=== PATIENT | male | born 1945 | race Caucasian/White ===

== ENCOUNTER 2017-05-19 16:20 | Observation (INO) | payer MEDICARE ==
[2017-05-19] MEDS ORDERED: SODIUM CHLORIDE 0.9% 1,000 ML IV ONE (16:58)
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
[2017-05-19 17:15] LABS: Basophils % (A) 0 %; CH 30.7; CHCM 34.3; Eosinophils # (A) 0.1 k/uL (0-0.7); Eosinophils % (A) 1 %; HCT 46.5 % (39.0-53.0); HDW 2.48; Luc # (Auto) 0.15; Luc % (Auto) 2; Lymphocytes # (A) 1.7 k/uL (1.0-4.8); Lymphocytes % (A) 23 %; MCH 30.9 pg (25.0-35.0); MCHC 34.4 g/dL (31.0-37.0); Monocytes # (A) 0.4 k/uL (0-1.0); Monocytes % (A) 5 %; Neutrophils # (A) 5.1 k/uL (1.3-7.7); Neutrophils % (A) 69 %; RBC 5.17 m/uL (4.30-5.90); RDW 13.5 % (11.5-15.5); WBC 7.3 k/uL (3.8-10.6); WBC (Perox) 6.97
[2017-05-19 17:24] LABS: Calcium 9.5 mg/dL (8.4-10.2); Magnesium 2.4 mg/dL (1.6-2.3); Partial Thromboplastin Time 26.1 sec (22.0-30.0); Total Bilirubin 0.5 mg/dL (0.2-1.3); Total Protein 6.9 g/dL (6.3-8.2)
[2017-05-19 17:35] LABS: Creatine Kinase 112 U/L (55-170)
--- NOTE | 2017-05-19 17:38 | XR ---
EXAMINATION TYPE: XR chest 2V DATE OF EXAM: 05/19/2017 COMPARISON: 08/08/2016 HISTORY: Fall and chest pain TECHNIQUE: Frontal and lateral views of the chest are obtained. FINDINGS: There is mild linear density at the left lung base. Heart size is normal. There is no sign of pleural effusion or pneumothorax. There are chest leads. IMPRESSION: There is mild atelectasis at the left lung base similar to old exam. Normal heart.
[2017-05-19 17:48] LABS: Creatine Kinase MB 1.5 ng/mL (0.0-2.4); Troponin I <0.012 ng/mL (0.000-0.034)
[2017-05-19 18:27] LABS: Appearance,Urine Clear (Clear); Bilirubin,Urine Negative (Negative); Glucose,Urine (UA) Negative (Negative); Ketones,Urine Negative (Negative); Leukocyte Esterase,Urine Negative (Negative); Nitrite,Urine Negative (Negative); Protein,Urine Negative (Negative); Specific Gravity,Urine 1.014 (1.001-1.035); UA Billing (MACRO vs. MICRO) CHEM; Urobilinogen,Urine <2.0 mg/dL (<2.0)
[2017-05-19] MEDS ORDERED: NITROGLYCERIN SL TABS 0.4 MG TAB SUBLINGUAL PRN ×2 (19:34→22:45)
[2017-05-19 21:24] VITALS: BMI 28.7
[2017-05-19 22:44] LABS: Creatine Kinase 95 U/L (55-170)
[2017-05-19 22:55] LABS: Creatine Kinase MB 1.2 ng/mL (0.0-2.4); Troponin I <0.012 ng/mL (0.000-0.034)
[2017-05-19] MEDS: ARIPiprazole 5 MG TAB PO SCH (23:59)
[2017-05-19] MEDS: GABAPENTIN 300 MG CAP PO SCH (23:59)
[2017-05-19] MEDS: PRAVASTATIN SODIUM 20 MG TAB PO SCH (23:59)
[2017-05-19] MEDS: traZODone HCL 100 MG TAB PO SCH (23:59)
[2017-05-20 05:14] LABS: Cholesterol 135 mg/dL (<200); HDL Cholesterol 39 mg/dL (40-60)
[2017-05-20 05:17] LABS: Creatine Kinase 99 U/L (55-170)
[2017-05-20 05:30] LABS: Creatine Kinase MB 1.2 ng/mL (0.0-2.4); Troponin I <0.012 ng/mL (0.000-0.034)
[2017-05-20] MEDS: GABAPENTIN 300 MG CAP PO SCH ×2 (08:10→20:36)
[2017-05-20] MEDS: ASPIRIN 81 MG PO SCH (08:10)
[2017-05-20] MEDS: CILOSTAZOL 100 MG TAB PO SCH ×2 (08:10→20:36)
[2017-05-20] MEDS: ALLOPURINOL 300 MG TAB PO SCH (08:10)
[2017-05-20] MEDS: ISOSORBIDE MONONITRATE ER 30 MG TAB.ER.24H PO SCH (08:11)
[2017-05-20] MEDS ORDERED: ASPIRIN 325 MG TAB PO SCH (09:00)
[2017-05-20] MEDS ORDERED: LOSARTAN 50 MG TAB PO SCH (09:00)
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
[2017-05-20] MEDS: SODIUM CHLORIDE 0.9% 1,000 ML IV SCH (13:21)
--- NOTE | 2017-05-20 14:13 | P.PN ---
Progress Note - Text This is an addendum to the dictated cardiology consultation. The patient has a known history of sinus bradycardia and chronotropic incompetence who presents with symptoms of dizziness and presyncope. He has been followed and that regard by Dr. Cowan in the possibility of permanent pacemaker was discussed with him in the past. Yesterday while at home after getting indoor he felt quite dizzy and fell to the ground but did not have a full syncopal episode. After admission he was noted to be in sinus bradycardia with no pauses. Patient is not on any negative chronotropic drugs. I will discuss his case with Dr. Cowan for the possible need to undergo permanent pacemaker implantation. Thank you for this consult we will follow with you.
--- NOTE | 2017-05-20 15:13 | CONS ---
DATE OF CONSULTATION: This is a 71-year-old male presented to the emergency department on 05/19 because of dizziness, lightheadedness and passing out. The patient apparently was squatting down and stood up and apparently became lightheaded, dizzy and had apparent either loss of consciousness or near loss of consciousness. It has apparently been going on for about a year and a half. He apparently at one point was going to have a pacemaker placed by Dr. Cowan he has not seen Dr. Cowan for over a year. He states that he at that time refused to have the pacemaker placed. Anyway, the patient is in the hospital for evaluation of that. States he is feeling reasonably well, now has been up out of bed, walking around, gone to the bathroom. No further episodes. No chest pain, chest discomfort. No difficulty breathing, coughing and wheezing, shortness of breath, or any other complaints like that. His home medications include allopurinol, Pletal, Cozaar, sublingual nitroglycerin, pravastatin, gabapentin, Abilify, low dose aspirin, Imdur and trazodone. He also at one point was on Klonopin. ALLERGIES: VICODIN AND SULFA ANTIBIOTICS. Medical history includes a history of CAD, angina pectoris, hyperlipidemia, hypertension, previous myocardial infarction, osteoarthritis, pneumonia. He has also had cardiac catheterization, psoriasis, BPH, peripheral vascular disease, fractured hand, gout, sciatica, and hyperlipidemia. Other surgical history includes heart catheterization, tonsillectomy, bilateral eyelid surgery, lipoma removal, nerve blocks in low back, carpal tunnel release, skin graft and some other minor procedures. Social history is positive for previous tobacco use. No alcohol use to report. No illicit drug use. Medical history is positive dementia, myocardial infarction. REVIEW OF SYSTEMS: CONSTITUTIONAL: Negative. NEUROLOGICAL: Dizzy, lightheadedness, syncope/near syncope. HEENT: Negative. CARDIOVASCULAR: Negative. PULMONARY: Negative. GI/: Negative. RHEUMATOLOGICAL/IMMUNOLOGIC: Negative. DERMATOLOGIC: Negative. ENDOCRINOLOGIC: Negative. Current vital signs include temperature 97.5, heart rate is right around 50 beats per minute, respiratory rate 18, blood pressure 140/78, mean 98, room air saturation 96%. Appears in no acute distress, looks well. HEENT examination is grossly unremarkable. Mucous membranes are moist. NECK: Supple. Full range of motion. No adenopathy. Cardiovascular examination reveals regular rhythm and rate. His heart rate is about 50. It is regular. No murmur. S1, S2 normal. Lungs reveal relatively clear breath sounds. Abdomen is soft. EXTREMITIES: Intact. No cyanosis, clubbing, or edema. Skin without rash. Labs are reviewed. CBC is completely normal. PT, INR, PTT normal. Electrolytes, mostly normal. BUN and creatinine were 18 and 1.55. The rest of the labs are completely normal. UA and cardiac enzymes all normal. EKG shows sinus rhythm with rate about 60 beats per minute. Medications are reviewed. ASSESSMENT: 1. Symptomatic bradycardia with dizziness, lightheadedness and near syncope/syncope. 2. History of coronary artery disease. 3. History of angina pectoris. 4. History of hyperlipidemia. 5. Hypertension. 6. Previous myocardial infarction. 7. Benign prostatic hypertrophy. 8. Previous attempt at the pacemaker insertion by Dr. Cowan which the patient refused. PLAN: It appears that the patient probably had symptomatic bradycardia and may need pacemaker insertion. Parts Counterman is going to see the patient. No additional recommendations are made. The patient is a primary Dr. Schroeder patient. Will continue to follow. Not much to add from our perspective. No additional recommendations are made.
--- NOTE | 2017-05-20 18:45 | HP ---
DATE OF ADMISSION: 05/19/2017 The patient is a 71-year-old came in with multiple episodes of ( ) palpitations in the past, was evaluated by Dr. Cowan appraisal coordinator, and he recommended a pacemaker placement. Patient's dizziness, near-syncopal episodes were much worse yesterday. The patient started having diarrhea. Although patient's symptoms of near syncopal episode preceded with diarrhea. Patient had 3 episodes of diarrhea yesterday and 3 episodes of diarrhea so far today morning. ( ) testing is being obtained at this point of time. Patient denies recent antibiotic use. The patient has worsening renal function. The patient's creatinine around 1.1 to 1.5. ( ) is being discontinued and the patient has ( ) orthostatic vitals. The patient was started on IV fluids and the patient in the hospital was found to have ( ) bradycardia. Apparently the patient has similar episodes with sinus bradycardia in the past. As patient was severely symptomatic, it was recommended that he will need a pacemaker. ROS: All other systems were reviewed and were negative. PAST MEDICAL HISTORY: Coronary artery disease, hyperlipidemia, hypertension, myocardial infarction in the past, osteoarthritis, prostate disorder and cardiac catheterization and tonsillectomy in the past. SOCIAL HISTORY: Former smoker. Denied any alcohol abuse or any drug abuse. FAMILY HISTORY: Father with dementia and myocardial infarction. Mother had dementia. Still alive. Home medications include: 1. ( ). 2. ( ). 3. Nitroglycerin. 4. Pravastatin. 5. Gabapentin. 6. ( ). 7. Aspirin. 8. Isosorbide. 9. Trazodone. ALLERGIES: HYDROCODONE, SULFA DRUGS. PHYSICAL EXAMINATION: VITAL SIGNS: Temperature 97.5, pulse of 48, sinus bradycardia. ( ) respiratory rate ( ) and blood pressure is 124/75 with positive orthostatic vitals. GENERAL: The patient is alert and oriented x3, not in any acute distress. Well developed, well nourished. HEENT: Pupils are round and equally reacting to light. EOMI. No scleral icterus. No conjunctival pallor. Normocephalic, atraumatic. No pharyngeal erythema. No thyromegaly. CARDIOVASCULAR: S1 and S2 present. No murmurs, rubs, or gallops. PULMONARY: Chest is clear to auscultation, no wheezing or crackles. ABDOMEN: Soft, nontender, nondistended, normoactive bowel sounds. No palpable organomegaly. MUSCULOSKELETAL: No joint swelling or deformity. EXTREMITIES: No cyanosis, clubbing, or pedal edema. NEUROLOGICAL: Gross neurological examination did not reveal any focal deficits. SKIN: No rashes. LABORATORY DATA: Reviewed. CT scan described above. Chest x-ray did not show any pneumonic process or pulmonary edema. ASSESSMENT AND PLAN: 1. Near syncopal episode with two possibilities, sinus bradycardia may be contributing to diarrhea. The patient is also dehydrated. The patient will be started on IV fluids and the patient will be treated for acute renal failure. Further management regarding ( ) per cardiology. 2. Acute renal failure secondary to prerenal azotemia from diarrhea. The patient was started on IV fluids as mentioned earlier. 3. ( ) from hypertension, hypertensive nephrosclerosis, because of acute renal failure, Losartan will be held. 4. Coronary artery disease. 5. Benign prostatic hypertrophy. 6. Hyperlipidemia. For above-mentioned chronic medical problems, we will go ahead and continue home medications. Patient also has a history of peripheral vascular disease and prior history of smoking. YUSEFD
[2017-05-20] MEDS: PRAVASTATIN SODIUM 20 MG TAB PO SCH (20:36)
[2017-05-20] MEDS: traZODone HCL 100 MG TAB PO SCH (20:36)
[2017-05-20] MEDS: ARIPiprazole 5 MG TAB PO SCH (20:36)
[2017-05-21 05:25] VITALS: PULSE 43; RESP 18
[2017-05-21] MEDS: SODIUM CHLORIDE 0.9% 1,000 ML IV SCH ×2 (06:13→08:05)
[2017-05-21 07:31] LABS: Anion Gap 8 mmol/L; Blood Urea Nitrogen 14 mg/dL (9-20); Carbon Dioxide 24 mmol/L (22-30); Chloride 111 mmol/L (98-107); Glucose 96 mg/dL (74-99); Non-African American GFR(MDRD) >60 (>60 ml/min/1.73 sqM); Potassium 4.2 mmol/L (3.5-5.1); Sodium 143 mmol/L (137-145)
[2017-05-21] MEDS: CILOSTAZOL 100 MG TAB PO SCH (08:02)
[2017-05-21] MEDS: GABAPENTIN 300 MG CAP PO SCH (08:02)
[2017-05-21] MEDS: ISOSORBIDE MONONITRATE ER 30 MG TAB.ER.24H PO SCH (08:02)
[2017-05-21] MEDS: ASPIRIN 81 MG PO SCH (08:02)
[2017-05-21] MEDS: ALLOPURINOL 300 MG TAB PO SCH (08:02)
[2017-05-21 08:11] VITALS: TEMP 97.6
--- NOTE | 2017-05-21 10:15 | P.PN ---
Subjective Progress note dated 05/21/2017 This is a 71-year-old male who sees my partner as her primary physician. He came to the hospital with complaints of lightheadedness dizziness and passing out with either syncope or near syncope. He apparently was advised in the past have a pacemaker placement but apparently he refused at that time. Apparently now he agrees that he should have a pacemaker placed. He seen Dr. Kim in the past for that. The patient has a history of CAD angina pectoris hyperlipidemia hypertension previous myocardial infarction DJD pneumonia psoriasis BPH peripheral vascular occlusive disease and gout. The patient's hoping to have the pacemaker placed today but is not sure. He's been able to walk around without any further episodes. He's gone to the bathroom. He is walking the hallway. No no additional episodes of being lightheaded dizzy or feeling like he was going to pass out. Objective - Vital Signs Vital signs: Vital Signs Temp 97.6 F 05/21/17 08:06 Pulse 43 L 05/21/17 08:06 Resp 18 05/21/17 08:06 BP 134/67 05/21/17 08:06 Pulse Ox 95 05/21/17 08:06 Intake & Output 05/20/17 05/21/17 05/21/17 18:59 06:59 18:59 Intake Total 480 200 180 Output Total 1000 1600 Balance -520 -1400 180 Weight 90.4 kg Intake: IV 200 Sodium Chloride 0.9% 1, 200 000 ml @ 100 mls/hr IV . Q10H TRE Rx#:[id number] Oral 480 180 Output: Urine 1000 1600 Other: # Voids 1 - Exam No acute distress, oriented 3. HEENT examination is grossly unremarkable. Mucous membranes are moist. No oral lesions. Neck supple. Full range of motion. No adenopathy thyromegaly or neck vein distention. Cardiovascular examination reveals regular rhythm rate. Heart rate about 60. S1-S2 normal. No distinct murmur noted. No S3 or S4. Lungs reveal relatively clear breath sounds. No wheezes rhonchi or crackles. Abdomen soft bowel sounds are heard. No masses or tenderness. Extremities are intact. No cyanosis clubbing or edema. Skin without rash. Neurologic examination is nonfocal. - Labs CBC & Chem 7: 05/19/17 16:46 05/21/17 06:20 Labs: Abnormal Lab Results - Last 24 Hours (Table) 05/21/17 Range/Units 06:20 Chloride 111 H (98-107) mmol/L Assessment and Plan (1) Bradycardia Status: Acute (2) Pre-syncope Status: Acute (3) Dizziness Status: Acute (4) Hypertension Status: Acute (5) Peripheral vascular disease Status: Acute Plan: Plan dated 05/21/2017 The patient will likely have a pacemaker placed today or tomorrow. Epigastric or diarrhea. The patient is feeling better. Has had no further episodes of lightheadedness dizziness syncope or presyncope. No chest pain or chest discomfort. No neurologic complaints speak of. No shortness of breath or difficulty breathing. We'll continue to follow. I'll let my partner know the status of this patient. Time with Patient: Less than 30
--- NOTE | 2017-05-21 12:17 | P.PN ---
Subjective Principal diagnosis: Dizziness and near syncope This is a 71-year-old gentleman with history of documented hypertension, hyperlipidemia, prior history of smoking, who presents to the hospital following a near syncopal episode. According to the patient he states that he does get dizzy spells whenever he bends forward to pick things up, upon standing he becomes dizzy. Yesterday according to the patient, he was sitting outside in the sun, stood up to walk into the house and became extremely dizzy, to the point where he felt he may pass out. He walked into the house and states that he went down to the ground. He denies passing out completely. Patient states that he has been seen by Dr. Cowan in the past and told that he may need a pacemaker, patient wasn't very happy with that and hence has not followed up with him since then. EKG on arrival here showed sinus bradycardia with occasional PVC. Patient was seen in consultation by Dr. Nunez yesterday. Dr. Nunez did have a discussion with Dr. Cowan regarding implantation of permanent pacemaker, this will be performed on June 09. Today the heart rate remains in the high 40s to low 50s, patient is asymptomatic. He will be discharged home today, pacemaker will be scheduled for June 09. Objective - Vital Signs Vital signs: Vital Signs Temp 97.6 F 05/21/17 08:06 Pulse 43 L 05/21/17 08:06 Resp 18 05/21/17 08:06 BP 134/67 05/21/17 08:06 Pulse Ox 95 05/21/17 08:06 Intake & Output 05/20/17 05/21/17 05/21/17 18:59 06:59 18:59 Intake Total 480 200 180 Output Total 1000 1600 Balance -520 -1400 180 Weight 90.4 kg Intake: IV 200 Sodium Chloride 0.9% 1, 200 000 ml @ 100 mls/hr IV . Q10H TRE Rx#:[id number] Oral 480 180 Output: Urine 1000 1600 Other: # Voids 1 - Exam PHYSICAL EXAMINATION: HEENT: Head is atraumatic, normocephalic. Pupils equal, round. Neck is supple. There is no elevated jugular venous pressure. HEART EXAMINATION: Heart S1, S2 normal. No murmur or gallop heard. CHEST EXAMINATION: Lungs are clear to auscultation and precussion. No chest wall tenderness is noted on palpation or with deep breathing. ABDOMEN: Soft, nontender. Bowel sounds are heard. No organomegaly noted. EXTREMITIES: 2+ peripheral pulses with no evidence of peripheral edema and no calf tenderness noted. NEUROLOGIC patient is awake, alert and oriented -3. . - Labs CBC & Chem 7: 05/19/17 16:46 05/21/17 06:20 Labs: Abnormal Lab Results - Last 24 Hours (Table) 05/21/17 Range/Units 06:20 Chloride 111 H (98-107) mmol/L Assessment and Plan (1) Bradycardia Status: Acute (2) Hyperlipemia Status: Acute (3) PVD (peripheral vascular disease) Status: Acute (4) Pre-syncope Status: Acute (5) Dizziness Status: Acute Plan: Cardiology's perspective, patient may be able to be discharged home today. He will be scheduled for implantation of a permanent pacemaker on June 09, the risks and the benefits were explained to the patient in detail. DNP note has been reviewed, I agree with a documented findings and plan of care. Patient was seen and examined.
[2017-05-21 12:24] VITALS: BP 126/62
--- NOTE | 2017-05-22 16:38 | DS ---
DATE OF ADMISSION: 05/19/2017 DATE OF DISCHARGE: 05/21/2017 Patient came in with palpation, near syncopal episode symptoms, all of which improved. I believe it is secondary to recent losartan, which was discontinued, with improvement in creatinine from 1.5 to 1.1, which is his baseline. Patient will be discharged without losartan. Patient in the past was evaluated for symptomatic sinus bradycardia and patient will undergo further evaluation at Dr. Cowan's clinic and pacemaker placement evaluation will be done at that time. The patient will be discharged. The patient was seen and examined on the day of discharge. Vitals are stable. PHYSICAL EXAMINATION: GENERAL: The patient is alert and oriented x3, not in any acute distress. Well developed, well nourished. HEENT: Pupils are round and equally reacting to light. EOMI. No scleral icterus. No conjunctival pallor. Normocephalic, atraumatic. No pharyngeal erythema. No thyromegaly. CARDIOVASCULAR: S1 and S2 present. No murmurs, rubs, or gallops. PULMONARY: Chest is clear to auscultation, no wheezing or crackles. ABDOMEN: Soft, nontender, nondistended, normoactive bowel sounds. No palpable organomegaly. MUSCULOSKELETAL: No joint swelling or deformity. EXTREMITIES: No cyanosis, clubbing, or pedal edema. NEUROLOGICAL: Gross neurological examination did not reveal any focal deficits. SKIN: No rashes. Patient has episodes of sinus bradycardia. At that time, patient was not ( ) at this time. Patient will be discharged today in stable medical condition to home. Activity as tolerated. Cardiac diet. Please refer to my depart summary for details of discharge medications. Follow with Dr. Schroeder around the May 28 at 3:15, follow with Dr. Cowan as scheduled. Activity as tolerated. I spent greater than 35 minutes in total discharge process.
== END 2017-05-21 14:32 | disposition home or self-care (01) ==
LOC: EC 16:20 → 6SEL 19:35
PROVIDERS: ADMIT Hospitalist; ATTEND Hospitalist
DX: R55 Syncope and collapse (principal); N17.9 Acute kidney failure, unspecified; R29.6 Repeated falls; I25.2 Old myocardial infarction; I25.10 Atherosclerotic heart disease of native coronary artery without angina pectoris; E78.5 Hyperlipidemia, unspecified; M19.90 Unspecified osteoarthritis, unspecified site; N40.0 Benign prostatic hyperplasia without lower urinary tract symptoms; M10.9 Gout, unspecified; I73.9 Peripheral vascular disease, unspecified; R01.1 Cardiac murmur, unspecified; L40.9 Psoriasis, unspecified; G89.29 Other chronic pain; F41.9 Anxiety disorder, unspecified; E86.0 Dehydration; I12.9 Hypertensive chronic kidney disease with stage 1 through stage 4 chronic kidney disease, or unspecified chronic kidney disease; N18.9 Chronic kidney disease, unspecified; Z79.899 Other long term (current) drug therapy; Z79.82 Long term (current) use of aspirin; Z88.5 Allergy status to narcotic agent; Z88.2 Allergy status to sulfonamides; Z87.891 Personal history of nicotine dependence; Z82.49 Family history of ischemic heart disease and other diseases of the circulatory system
CPT/HCPCS: 93005 ×2; 96360; 96361; 99282; 99285; 36415; 80061; 80053; 80048; 82550 ×2; 82553 ×2; 83735; 84484 ×2; 85025; 85610; 85730; 81003; 71020; G0378 ×3

== ENCOUNTER 2017-05-21 23:17 | Emergency (ER) | payer MEDICARE ==
[2017-05-21 23:27] VITALS: TEMP 97.7
[2017-05-21] MEDS ORDERED: LORazepam 1 MG TAB PO STA (23:36)
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
[2017-05-21 23:43] VITALS: RESP 16
[2017-05-22 00:28] VITALS: BP 120/71; PULSE 58
== END 2017-05-22 00:26 | disposition home or self-care (01) ==
LOC: EC 23:17
DX: F41.9 Anxiety disorder, unspecified (principal); E78.5 Hyperlipidemia, unspecified; I10 Essential (primary) hypertension; I25.10 Atherosclerotic heart disease of native coronary artery without angina pectoris; M10.9 Gout, unspecified; M19.90 Unspecified osteoarthritis, unspecified site; I25.2 Old myocardial infarction; Z87.891 Personal history of nicotine dependence; Z79.82 Long term (current) use of aspirin; Z79.899 Other long term (current) drug therapy; Z88.2 Allergy status to sulfonamides; Z88.5 Allergy status to narcotic agent; Z86.79 Personal history of other diseases of the circulatory system
CPT/HCPCS: 99282

== ENCOUNTER 2017-06-09 15:04 | Day surgery (SDC) | payer MEDICARE ==
[2017-06-04 16:49] VITALS: BMI 25.0
[~2017-06-09 15:04] MED LIST: SODIUM CHLORIDE 0.9% 1,000 ML IV SCH; ceFAZolin 1,000 MG in SODIUM CHLORIDE 0.9% IRRIGATIO 250 ML IRRIGATION ONE; ceFAZolin 2 GM in SODIUM CHLORIDE 0.9% 100 ML IVPB ONE
[2017-06-09] MEDS ORDERED: IV FLUID CONTINUATION 1,000 ML IV ONE (15:50)
[2017-06-09] MEDS ORDERED: IOHEXOL 350 MG/ML 50ML BOTTLE INJ ONE (16:06)
[2017-06-09] MEDS ORDERED: MIDAZOLAM 2 MG/2 ML VIAL ONE (16:19)
[2017-06-09] MEDS ORDERED: fentaNYL (PF) 50 MCG/ML 2 ML AMP ONE (16:19)
[2017-06-09] MEDS ORDERED: fentaNYL (PF) 50 MCG/ML 2 ML AMP IV ONE (16:25)
[2017-06-09] MEDS: MIDAZOLAM 2 MG/2 ML VIAL IV ONE ×2 (16:25→16:38)
[2017-06-09] MEDS ORDERED: LIDOCAINE 1% INJ 10MG/ML (20 ML MDV) SQ ONE ×2 (16:36→16:41)
[2017-06-09] MEDS ORDERED: LIDOCAINE 2% INJ 20 MG/ML SQ ONE (16:41)
--- NOTE | 2017-06-09 17:39 | P.PCN ---
Preoperative Diagnosis: Patient underwent EP procedure under conscious sedation/moderate sedation, monitoring of the level of consciousness and physiologic parameters including but not limited to vital signs and oxygenation. Patient tolerated the procedure well without any acute complications. Start time: 1625 Stop time: 172 Postoperative Diagnosis: Procedure(s) Performed: Implants: Condition: stable Indications for Procedure: Operative Findings: Description of Procedure:
[2017-06-09] MEDS ORDERED: ACETAMINOPHEN IV (For NPO) 1,000 MG in EMPTY BAG 1 BAG IVPB ONE (17:42)
[2017-06-09] MEDS ORDERED: HYDROcodone/APAP 5-325MG 1 EACH TAB PO PRN (17:42)
[2017-06-09] MEDS ORDERED: ACETAMINOPHEN TAB 325 MG TAB PO PRN (17:42)
[2017-06-09] MEDS ORDERED: NITROGLYCERIN SL TABS 0.4 MG TAB SUBLINGUAL PRN (19:20)
[2017-06-09] MEDS: CILOSTAZOL 100 MG TAB PO SCH (20:30)
[2017-06-09] MEDS: GABAPENTIN 300 MG CAP PO SCH (20:30)
[2017-06-09] MEDS ORDERED: traZODone HCL 100 MG TAB PO SCH (21:00)
[2017-06-09] MEDS ORDERED: PRAVASTATIN SODIUM 20 MG TAB PO SCH (21:00)
[2017-06-09] MEDS ORDERED: LORazepam 1 MG TAB PO SCH (21:00)
[2017-06-09] MEDS ORDERED: ARIPiprazole 5 MG TAB PO SCH (21:00)
[2017-06-09] MEDS: ceFAZolin 2 GM in SODIUM CHLORIDE 0.9% 100 ML IVPB SCH (22:18)
[2017-06-10] MEDS: ceFAZolin 2 GM in SODIUM CHLORIDE 0.9% 100 ML IVPB SCH ×3 (03:09→15:37)
--- NOTE | 2017-06-10 06:53 | XR ---
EXAMINATION TYPE: XR chest 2V DATE OF EXAM: 06/10/2017 COMPARISON: Chest x-ray May 19, 2017 HISTORY: Post pacemaker insertion. TECHNIQUE: Frontal and lateral views of the chest are obtained. FINDINGS: There is new 2-lead pacemaker with leads terminating in right atrium and right ventricle. T here is persistent left basilar linear opacity. There is no new focal air space opacity, pleural eff usion, or pneumothorax seen. The cardiac silhouette size is within normal limits. The osseous stru ctures are intact. IMPRESSION: New dual-lead pacemaker with tips in right atrium and right ventricle. No evidence of co mplication related to procedure. Stable left basilar atelectasis and/or scarring.
--- NOTE | 2017-06-10 08:12 | PN ---
Mr. Rosario is a 71-year-old male patient with symptomatic sick sinus syndrome with significant chronotropic incompetence associated with diagnosis of fatigue. He also complains of recurrent dizziness, was recently admitted to the hospital, last he was also admitted for the same problem. He underwent dual chamber pacemaker implantation successfully. Chest x-ray today is within normal limits. The leads are in stable position. No pneumothorax noted. Vitals are stable. He is afebrile, 98 degrees Fahrenheit. Pulse rate is in the 50s. Blood pressure 129/76 mmHg. Head and neck examination is normal. Heart sounds, S1, S2 are normal. No murmurs, no gallops or rub. Lungs are clear to auscultation. Extremities are warm, no edema. IMPRESSION: 1. Symptomatic sick sinus syndrome, status post pulmonary pacemaker implantation. 2. Hypertension. 3. On Losartan. 4. Dyslipidemia on Pravachol. Suggest discharge home after IV antibiotics and pacemaker interrogation. Will see him again in the office in 5 days in the [facility]. I will see him again in about 4 months. It is quite possible he may not need Ability anymore once his chronotropic incompetence now has been addressed. RENA
--- NOTE | 2017-06-10 08:22 | MISC ---
DATE OF SERVICE: 06/10/2017 RE: Armond Rosario Dear Dr. Schroeder; I had the pleasure of seeing Mr. Armond Rosario in electrophysiology followup. As you known, Mr. Rosario had been advised permanent pacemaker implantation last year for significant chronotropic incompetence but he had refused. He came into the hospital once again complaining of dizziness and light-headedness and he was found to be quite bradycardiac. Yesterday, he underwent a dual chamber pacemaker implantation successfully without any acute complications. Hopefully , with responsiveness of the pacemaker, he will not need Abilify anymore. He will continue all his other cardiac medications as before. Thank you for entrusting me with the care of your patient. Warm regards. Sincerely. MD RENA Lyle
[2017-06-10] MEDS ORDERED: ALLOPURINOL 300 MG TAB PO SCH (09:00)
[2017-06-10] MEDS ORDERED: LOSARTAN 50 MG TAB PO SCH (09:00)
[2017-06-10] MEDS ORDERED: ASPIRIN 81 MG CHEW PO SCH (09:00)
[2017-06-10] MEDS ORDERED: LORATADINE 10 MG TAB PO SCH (09:00)
[2017-06-10] MEDS ORDERED: ISOSORBIDE MONONITRATE ER 30 MG TAB.ER.24H PO SCH (09:00)
[2017-06-10] MEDS: GABAPENTIN 300 MG CAP PO SCH (09:22)
[2017-06-10] MEDS: CILOSTAZOL 100 MG TAB PO SCH (09:22)
--- NOTE | 2017-06-10 14:49 | PCN ---
A 71-year-old male patient who has symptomatic sick sinus syndrome with dizziness, lightheadedness, tiredness, fatigue, and ( ) incompetence who came again to the hospital complaining of dizziness and was found to be bradycardiac. He is known to have significant ( ) incompetence in the past and I have advised him permanent pacemaker last year. He was seen by Dr. Nunez when Dr. Nunez was rounding in [facility] and was once again advised permanent pacing because of his episodes of bradycardia in the absence of any reversible cause. Patient was brought tot the EP lab in fasting state. Written informed consent was obtained prior to the procedure. The left shoulder area was prepped and draped as per protocol. 1% lidocaine was used for local anesthesia. A 4 cm incision was made parallel to the the deltopectoral groove about 1.5 cm medial to it. The incision was carried down to the level fo the pectoralis muscle. Subfascial pocket was made. Hemostasis was assured. The left axillary vein was accessed at two separate points under fluoroscopy and via appropriately sized introducer sheaths. Two leads were positioned in the right heart. The atrial lead was a [employer] lead Ingevity MR I7735, serial # [id number]. P-waves were 5.6 mV, pacing threshold 0.5 v at 0.4 ms, pacing impedance of 534 ohms. 10 v test is negative. The RV lead was 59 cm In[employer]ev[employer] MRI passive lead model #7732, serial #[id number]. The R-waves were 7.1 mV, pacing threshold 0.6 v at 0.4 ms, pacing impedance of 602 ohms. 10 v test was negative. The leads were secured to the underlying pectoralis fascia using two nonabsorbable sutures. Pocket was irrigated with antibiotic solution. The leads were connected to the generator ([employer] Accolade MRI model #L331, serial #[id number]. The leads and the generator were then placed in the subfascial pocket and the wound was closed in 3 layers and dressed per protocol. The device was then programmed to DDDR 50 to 130 bpm with ( ) turned on for rate responsiveness with VIP mode on. The patient tolerated the procedure well without any acute complications. Attention: Dorothea at [facility]
[2017-06-10 16:13] VITALS: BP 113/64; PULSE 62; RESP 16; TEMP 97.7
--- NOTE | 2017-06-10 16:16 | CONS ---
This is a 71-year-old gentleman status post pacemaker insertion. He likely will be discharged home today. The patient apparently had symptomatic sick sinus syndrome. He also has a history of hypertension and hyperlipidemia. He sees one of my partners as a primary and that is why we are consulted. From the pulmonary standpoint seems to be doing relatively well. Denies any complaints. No shortness of breath. No chest pain. No chest discomfort. No cough. No wheezing. No phlegm production. No hemoptysis. His vital signs have been stable. ALLERGIES INCLUDE VICODIN AND SULFA. Home medications included aspirin, losartan, trazodone, pravastatin, nitroglycerine sublingual, loratadine, Ativan, Imdur, gabapentin, Pletal, Zyloprim and Abilify. SOCIAL HISTORY: Essentially unremarkable. OCCUPATIONAL HISTORY: Noncontributory. FAMILY HISTORY: Noncontributory. Medical history includes primary hypertension and hyperlipidemia. In addition he has a history of sick sinus syndrome which has been symptomatic. Surgical history is mostly remote. REVIEW OF SYSTEMS: CONSTITUTIONAL: Negative. NEUROLOGIC: Negative. HEENT: Negative. CARDIOVASCULAR: See above. PULMONARY: Negative. GI/: Negative. RHEUMATOLOGIC/IMMUNOLOGIC: Negative. ENDOCRINOLOGIC/DERMATOLOGIC: Negative. Current vital signs are reviewed. Temperature 97.6, heart rate 62, respiratory rate 16, blood pressure 129/76, room air saturation is 95%. Appears in no acute distress. HEENT: Grossly unremarkable. Mucous membranes are moist. No oral lesions. NECK: Supple. Full range of motion. No adenopathy or thyromegaly. Neck veins are flat. CARDIOVASCULAR: Reveals regular rhythm rate. S1, S2 normal. Heart rate is about 70. LUNGS: Reveal clear breath sounds. No wheezes, rhonchi or crackles. ABDOMEN: Soft, bowel sounds are heard. No masses or tenderness. EXTREMITIES: Intact. No cyanosis, clubbing or edema. SKIN: Without rash. NEUROLOGIC: Brief, but nonfocal. No lab data to report. Chest x-ray done today shows dual lead pacemaker with tips in the right atrium and right ventricle. No immediate complication noted. Pacemaker was actually placed yesterday. ASSESSMENT: 1. Status post pacemaker insertion for symptomatic sick sinus syndrome. 2. History of hypertension. 3. Hyperlipidemia. PLAN: Later today the patient will likely be discharged. No additional recommendations are made. Will continue to follow. Prognosis is guarded. Will follow up with his primary doctor. RENA
== END 2017-06-10 16:50 | disposition home or self-care (01) ==
LOC: CATHEP 15:04 → 3OBS 17:29 → CATHEP 06-10 16:50
PROVIDERS: ATTEND Internal Medicine Clinical Cardiac Electrophysiology
DX: I49.5 Sick sinus syndrome (principal); R00.1 Bradycardia, unspecified; E78.5 Hyperlipidemia, unspecified; I10 Essential (primary) hypertension; Z79.02 Long term (current) use of antithrombotics/antiplatelets; Z79.82 Long term (current) use of aspirin; Z79.899 Other long term (current) drug therapy; Z88.5 Allergy status to narcotic agent; Z88.2 Allergy status to sulfonamides
CPT/HCPCS: 33208; 71020; C1785; C1898; J2250; J0690 ×3; J2001; J3010; J0131; Q9967

== ENCOUNTER 2017-08-30 11:50 | Emergency (ER) | payer MEDICARE ==
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
--- NOTE | 2017-08-30 12:57 | CT ---
EXAMINATION TYPE: CT brain wo con DATE OF EXAM: 08/30/2017 COMPARISON: Previous study dated 9 HISTORY: dizziness CT DLP: 1031.4 mGycm Automated exposure control for dose reduction was used. FINDINGS: Central structures are midline. There is no evidence of hydrocephalus. No acute focal lesion, mass ef fect or midline shift. I do not see evidence of intracranial blood. Visualized portions of the paranasal sinuses and mastoids are clear. No depressed skull fracture is s een. Middle and inner ear structures appear normal. IMPRESSION: NO ACUTE INTRACRANIAL ABNORMALITY.
[2017-08-30 12:58] LABS: Basophils % (A) 0 %; CH 30.3; CHCM 33.5; Eosinophils # (A) 0.1 k/uL (0-0.7); Eosinophils % (A) 2 %; HCT 43.1 % (39.0-53.0); HGB 14.6 gm/dL (13.0-17.5); Luc % (Auto) 2; Lymphocytes # (A) 1.3 k/uL (1.0-4.8); Lymphocytes % (A) 25 %; MCH 30.6 pg (25.0-35.0); MCHC 33.7 g/dL (31.0-37.0); MCV 90.8 fL (80.0-100.0); Mean Platelet Volume 7.1; Monocytes # (A) 0.4 k/uL (0-1.0); Monocytes % (A) 8 %; Neutrophils # (A) 3.3 k/uL (1.3-7.7); Neutrophils % (A) 63 %; RBC 4.75 m/uL (4.30-5.90); RDW 13.7 % (11.5-15.5); WBC 5.2 k/uL (3.8-10.6); WBC (Perox) 5.26
[2017-08-30] MEDS: SODIUM CHLORIDE 0.9% 500 ML IV STA (12:58)
--- NOTE | 2017-08-30 12:58 | XR ---
EXAMINATION TYPE: XR chest 2V DATE OF EXAM: 08/30/2017 HISTORY: Weakness. REFERENCE: Previous study dated 06/10/2017. FINDINGS: There is a bipolar pacemaker place on the left. There is chronic atelectasis at the left lung base. The right lung is clear. Pleural spaces are clear . The heart is not enlarged. IMPRESSION: CHRONIC LEFT BASILAR ATELECTASIS.
[2017-08-30 13:05] VITALS: RESP 18
[2017-08-30 13:09] LABS: Prothrombin Time 10.6 sec (9.0-12.0)
[2017-08-30 13:10] LABS: ALT 30 U/L (21-72); AST 19 U/L (17-59); Alkaline Phosphatase 60 U/L (38-126); Anion Gap 11 mmol/L; Blood Urea Nitrogen 18 mg/dL (9-20); Calcium 8.8 mg/dL (8.4-10.2); Carbon Dioxide 23 mmol/L (22-30); Chloride 108 mmol/L (98-107); Glucose 132 mg/dL (74-99); Magnesium 2.1 mg/dL (1.6-2.3); Non-African American GFR(MDRD) 54 (>60 ml/min/1.73 sqM); Potassium 4.2 mmol/L (3.5-5.1); Sodium 142 mmol/L (137-145); Total Bilirubin 0.2 mg/dL (0.2-1.3)
[2017-08-30 13:13] LABS: Appearance,Urine Cloudy (Clear); Bilirubin,Urine 1+ (Negative); Glucose,Urine (UA) 1+ (Negative); Granular Casts,Urine 86 /lpf (0); Ketones,Urine Trace (Negative); Leukocyte Esterase,Urine Small (Negative); Mucus,Urine Moderate /hpf; Nitrite,Urine Negative (Negative); PH, Urine 6.5 (5.0-8.0); Particle Count 12388; Protein,Urine 1+ (Negative); RBC,Urine 2 /hpf (0-5); Specific Gravity,Urine 1.026 (1.001-1.035); Squamous Epithelial Cell,Urine <1 /hpf (0-4); UA Billing (MACRO vs. MICRO) MICRO; WBC,Urine 10 /hpf (0-5)
[2017-08-30 13:19] LABS: Creatine Kinase 168 U/L (55-170)
[2017-08-30 13:32] LABS: Creatine Kinase MB 1.6 ng/mL (0.0-2.4); Troponin I <0.012 ng/mL (0.000-0.034)
[2017-08-30 14:57] VITALS: BP 106/65; PULSE 63; TEMP 97.8
== END 2017-08-30 15:04 | disposition home or self-care (01) ==
LOC: EC 11:50
DX: I95.1 Orthostatic hypotension (principal); I10 Essential (primary) hypertension; F41.9 Anxiety disorder, unspecified; I25.10 Atherosclerotic heart disease of native coronary artery without angina pectoris; E78.5 Hyperlipidemia, unspecified; I25.2 Old myocardial infarction; I73.9 Peripheral vascular disease, unspecified; Z95.0 Presence of cardiac pacemaker; Z88.2 Allergy status to sulfonamides; Z88.5 Allergy status to narcotic agent; Z79.82 Long term (current) use of aspirin; Z79.899 Other long term (current) drug therapy; Z87.891 Personal history of nicotine dependence
CPT/HCPCS: 36415; 70450; 71020; 80053; 81001; 82550; 82553; 83735; 84484; 85025; 85610; 85730; 93005; 96360; 96361; 99284

== ENCOUNTER 2018-06-08 08:24 | Observation (INO) | payer MEDICARE ==
[2018-06-08] MEDS ORDERED: SODIUM CHLORIDE 0.9% 1,000 ML IV STA ×2 (09:06)
[2018-06-08 09:33] LABS: Basophils % (A) 0 %; Eosinophils # (A) 0.1 k/uL (0-0.7); Eosinophils % (A) 2 %; HCT 42.4 % (39.0-53.0); HGB 14.7 gm/dL (13.0-17.5); Lymphocytes # (A) 1.4 k/uL (1.0-4.8); Lymphocytes % (A) 18 %; MCH 30.6 pg (25.0-35.0); MCHC 34.6 g/dL (31.0-37.0); MCV 88.5 fL (80.0-100.0); Mean Platelet Volume 7.2; Monocytes # (A) 0.5 k/uL (0-1.0); Monocytes % (A) 7 %; Neutrophils # (A) 5.3 k/uL (1.3-7.7); Neutrophils % (A) 72 %; Platelet Count 159 k/uL (150-450); RDW 13.8 % (11.5-15.5); WBC 7.3 k/uL (3.8-10.6)
[2018-06-08 09:41] LABS: Albumin 3.4 g/dL (3.5-5.0); Calcium 9.2 mg/dL (8.4-10.2); Partial Thromboplastin Time 23.2 sec (22.0-30.0); Prothrombin Time 9.9 sec (9.0-12.0); Total Bilirubin 0.4 mg/dL (0.2-1.3); Total Protein 5.4 g/dL (6.3-8.2)
[2018-06-08 10:04] LABS: Creatine Kinase 35 U/L (55-170)
[2018-06-08 10:17] LABS: Creatine Kinase MB 0.6 ng/mL (0.0-2.4); Troponin I <0.012 ng/mL (0.000-0.034)
--- NOTE | 2018-06-08 10:29 | XR ---
EXAMINATION TYPE: XR chest 2V DATE OF EXAM: 06/08/2018 COMPARISON: 08/30/2017 HISTORY: Dizziness and weakness for 3 days. TECHNIQUE: Frontal and lateral views of the chest are obtained. FINDINGS: New linear patchy right basilar airspace disease is favored to represent atelectasis. Chron ic scarring is seen at the left lung base unchanged from the prior of 2017. Dual lead left-sided card iac device and mild cardiac enlargement are similar to the prior. No new pneumothorax or sizable pleu ral effusion. Mild multilevel degenerative changes of the thoracic spine. IMPRESSION: New right basilar opacity is favored to represent atelectasis, however early developing pneumonia is possible in the appropriate clinical setting. Chronic left basilar atelectasis is unchanged from the prior.
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
[2018-06-08] MEDS ORDERED: NALOXONE 0.4 MG/ML 1 ML VIAL IV PRN (11:10)
[2018-06-08] MEDS ORDERED: ONDANSETRON 4 MG/2 ML VIAL IVP PRN (11:10)
[2018-06-08] MEDS ORDERED: ACETAMINOPHEN TAB 325 MG TAB PO PRN (11:10)
[2018-06-08] MEDS ORDERED: NITROGLYCERIN SL TABS 0.4 MG TAB SUBLINGUAL PRN (11:14)
[2018-06-08 12:43] LABS: Appearance,Urine Clear (Clear); Bilirubin,Urine Negative (Negative); Blood,Urine Negative (Negative); Color,Urine Yellow; Glucose,Urine (UA) Negative (Negative); Ketones,Urine Negative (Negative); Leukocyte Esterase,Urine Negative (Negative); Nitrite,Urine Negative (Negative); PH, Urine 6.5 (5.0-8.0); Protein,Urine Negative (Negative); Specific Gravity,Urine 1.015 (1.001-1.035); Urobilinogen,Urine <2.0 mg/dL (<2.0)
[2018-06-08] MEDS: GABAPENTIN 300 MG CAP PO SCH (20:28)
[2018-06-08] MEDS: CILOSTAZOL 100 MG TAB PO SCH (20:28)
[2018-06-08] MEDS: traZODone HCL 100 MG TAB PO SCH (21:22)
[2018-06-09] MEDS: FLUDROCORTISONE 0.1 MG TAB PO SCH ×3 (00:29→21:42)
[2018-06-09] MEDS: HYDROCORTISONE SUCCINATE 100 MG/2 ML VIAL IV SCH ×4 (00:29→15:45)
--- NOTE | 2018-06-09 00:57 | HP ---
HISTORY AND PHYSICAL DATE OF ADMISSION: June 08, 2018 DATE OF SERVICE: June 08, 2018. PRESENT COMPLAINT: Dizzy. HISTORY OF PRESENTING COMPLAINT: Pleasant 72-year-old patient of Dr. Schroeder. Chronic stable medical conditions include hypertension, hyperlipidemia, osteoarthritis, BPH, coronary artery disease with nonobstructive disease 65% and also has a permanent pacemaker. For 3 days, patient has been getting dizzy, lightheaded, noticed that more so when he is active even could happen at rest, sometimes wobbly when he walks. Denies any change in speech or change in vision or swallowing. The patient has been seeing Dr. Sandoval and was given a course of steroids that he was tapering off. Just tapered off looks like a couple days ago. The patient has not passed out. The patient was found to be significantly orthostatic with a blood pressure systolic in the one teens with standing up 150s and sitting up. Also patient's heart rate noticed to be down to the 50s. Looks like the pacemaker set at 40. Patient admitted for the same. The patient does feel tired and run down otherwise a bit weak. REVIEW OF SYSTEMS: CONSTITUTIONAL: Tired. HEENT: Decreased hearing. RESPIRATORY none. CARDIOVASCULAR none. GASTROINTESTINAL none. GENITOURINARY: BPH symptoms. DERMATOLOGICAL, HEMATOLOGIC, LYMPHATICS: None. PSYCHIATRY none. NEUROLOGICAL: Nil focal. PAST MEDICAL HISTORY: Coronary artery disease, hyperlipidemia, hypertension, osteoarthritis, BPH. Cardiac cath did show 65% last cardiac cath, bilateral sciatica, hyperuricemia, bilateral parotitis. PAST SURGICAL HISTORY: Cardiac catheterization showing 55% obstructive disease, pacemaker, tonsillectomy, bilateral blepharoplasty, right shoulder lipoma removal, bilateral carpal tunnel release, left leg permanent pacemaker in May of 2017. PSYCH HISTORY: Anxiety. SOCIAL HISTORY: . Was an alcoholic, none since 1974. The patient also started smoking age of 8, got up to 3 packs a day, stopped in 1979. FAMILY HISTORY: Dementia, myocardial infarction. HOME MEDICATIONS: 1. Trazodone 200 mg q.h.s. 2. Pravachol 10 mg daily. 3. Nitrostat 0.4 sublingual q.5 p.r.n. 4. Cozaar 50 mg q.h.s. 5. Imdur ER 30 mg a day. 6. Neurontin 300 mg b.i.d. 7. Pletal 100 mg b.i.d. 8. Aspirin 81 mg daily. 9. Allopurinol 300 mg a day. 10.Tylenol 500 mg p.o. daily. ALLERGIES: HYDROCODONE AND SULFUR. PHYSICAL EXAMINATION: On examination, vital signs on presentation, temperature 97.8. Pulse 56, respiration 18, blood pressure 158/77 sitting up, and standing up was 109/60, pulse ox 95% on room air. GENERAL APPEARANCE: Average build, sitting up, tired appearing. EYES: Pupils are equal. Conjunctivae normal. HEENT: External appearance of nose and ears. Oral cavity normal. NECK: JVD not raised. Mass not palpable. RESPIRATORY: Effort normal. LUNGS: Slightly decreased breath sounds. CARDIOVASCULAR: 1st and 2nd sounds normal. No edema. ABDOMEN: Soft, nontender. Liver and spleen not palpable. LYMPHATICS: No lymph nodes palpable in the neck and axillae. PSYCHIATRY: Alert and oriented x3. Mood and affect normal. NEUROLOGICAL: Pupils equal. Cranial nerves grossly intact. Power and sensation grossly intact. INVESTIGATIONS: White count 7.3, hemoglobin 14.7, potassium 4, BUN 23, creatinine 1.06. UA negative. Chest x-ray, right basilar opacity, possibly atelectasis. EKG normal sinus rhythm. Heart rate 56. ASSESSMENT: 1. This is a patient presented with episodes of dizziness, more so when he is getting about. The patient is found to be severely orthostatic. Given past history of alcoholism, this well could be from autonomic dysfunction, but this is a new finding. Bradycardia could be contributing, but the patient has a pacemaker set at 40. It may be noted that the patient just finished a course of steroids for his acute low back pain and that could be an addisonian component to the low blood pressure. Hence will cover with the same. 2. Essential hypertension. 3. Hyperlipidemia. 4. Primary osteoarthritis and low lumbar degenerative joint disease. 5. Benign prostatic hypertrophy. 6. Nonobstructive coronary artery disease ejection fraction 65 percent/coronary artery disease. 7. Permanent pacemaker. PLAN: At this point, we will start the patient on Florinef 0.1 mg b.i.d. and Claudio stockings. The patient did get some IV fluids. We will also put the patient on IV hydrocortisone 25 mg q.8h. Check cortisol in the morning. Cardiology is consulted. We will also give a heating pad for his back. Home medications will be resumed. If symptoms remain the same or not significant improvement, may need to consider doing a tilt-table test. The patient is on monitored telemetry, cardiac monitored bed. Care was discussed in detail with the patient. Copy to Dr. Schroeder. TUSHAR / ISAC: [id number] /
[2018-06-09] MEDS ORDERED: LOSARTAN 50 MG TAB PO STA (02:23)
[2018-06-09 05:00] LABS: Basophils % (A) 0 %; Eosinophils # (A) 0.2 k/uL (0-0.7); Eosinophils % (A) 2 %; HCT 46.5 % (39.0-53.0); HGB 15.4 gm/dL (13.0-17.5); Lymphocytes # (A) 1.1 k/uL (1.0-4.8); Lymphocytes % (A) 13 %; MCH 29.6 pg (25.0-35.0); MCHC 33.1 g/dL (31.0-37.0); MCV 89.5 fL (80.0-100.0); Mean Platelet Volume 6.8; Monocytes # (A) 0.5 k/uL (0-1.0); Monocytes % (A) 5 %; Neutrophils # (A) 7.1 k/uL (1.3-7.7); Neutrophils % (A) 79 %; Platelet Count 154 k/uL (150-450); RDW 13.7 % (11.5-15.5); WBC 8.9 k/uL (3.8-10.6)
[2018-06-09 05:14] LABS: Albumin 3.4 g/dL (3.5-5.0); Calcium 9.2 mg/dL (8.4-10.2); Magnesium 2.4 mg/dL (1.6-2.3); Total Bilirubin 0.5 mg/dL (0.2-1.3); Total Protein 5.5 g/dL (6.3-8.2)
--- NOTE | 2018-06-09 06:44 | XR ---
EXAMINATION TYPE: XR chest 1V DATE OF EXAM: 06/09/2018 CLINICAL HISTORY: Difficulty breathing progress study. Rule out pneumonia. TECHNIQUE: Single AP portable upright view of the chest is obtained. COMPARISON: Chest x-ray from one day earlier and older studies. FINDINGS: There is persistent but improving bibasilar opacity felt to reflect resolving infiltrate a nd/or atelectasis. No new focal airspace opacity, pleural effusion, or pneumothorax is seen bilateral ly. Cardiac silhouette size remains enlarged with dual lead pacemaker. Visualized osseous structures are intact. IMPRESSION: Improving bibasilar atelectasis and/or infiltrate. No new infiltrate is present.
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
[2018-06-09] MEDS: ACETAMINOPHEN TAB 500 MG TAB PO SCH (10:10)
[2018-06-09] MEDS: ALLOPURINOL 300 MG TAB PO SCH (10:12)
[2018-06-09] MEDS: ASPIRIN 81 MG PO SCH (10:12)
[2018-06-09] MEDS: CILOSTAZOL 100 MG TAB PO SCH ×2 (10:13→21:42)
[2018-06-09] MEDS: GABAPENTIN 300 MG CAP PO SCH ×2 (10:16→21:42)
[2018-06-09] MEDS: PRAVASTATIN SODIUM 20 MG TAB PO SCH (10:19)
[2018-06-09] MEDS: LOSARTAN 50 MG TAB PO SCH ×2 (10:19→21:42)
[2018-06-09] MEDS: ISOSORBIDE MONONITRATE ER 30 MG TAB.ER.24H PO SCH (10:21)
[2018-06-09] MEDS ORDERED: LOSARTAN 50 MG TAB PO SCH (21:00)
[2018-06-09] MEDS: traZODone HCL 100 MG TAB PO SCH (21:42)
[2018-06-09 22:49] VITALS: RESP 18
[2018-06-10] MEDS ORDERED: HYDROCORTISONE SUCCINATE 100 MG/2 ML VIAL ONE
[2018-06-10] MEDS: HYDROCORTISONE SUCCINATE 100 MG/2 ML VIAL IV SCH ×2 (05:20→10:28)
[2018-06-10] MEDS: ASPIRIN 81 MG PO SCH (10:29)
[2018-06-10] MEDS: FLUDROCORTISONE 0.1 MG TAB PO SCH (10:29)
[2018-06-10] MEDS: CILOSTAZOL 100 MG TAB PO SCH (10:29)
[2018-06-10] MEDS: ALLOPURINOL 300 MG TAB PO SCH (10:29)
[2018-06-10] MEDS: GABAPENTIN 300 MG CAP PO SCH (10:30)
[2018-06-10] MEDS: LOSARTAN 50 MG TAB PO SCH (10:30)
[2018-06-10] MEDS: ISOSORBIDE MONONITRATE ER 30 MG TAB.ER.24H PO SCH (10:30)
[2018-06-10] MEDS: PRAVASTATIN SODIUM 20 MG TAB PO SCH (10:31)
[2018-06-10] MEDS: ACETAMINOPHEN TAB 500 MG TAB PO SCH (10:43)
--- NOTE | 2018-06-10 13:04 | PN ---
PROGRESS NOTE DATE OF SERVICE: 06/09/2018 PRESENTING COMPLAINT: Dizzy. INTERVAL HISTORY: This patient is seen by me yesterday in the ICU. Presented with dizzy. It was felt some aspect of dizziness was from his bradycardia and Cardiology assess the permanent pacemaker. Patient also significantly orthostatic for which patient is put on Florinef. I did remind the nurse to put the patient's SKYLA stalking on the previous evening. Patient does feel a bit better, losartan is also increased. REVIEW OF SYSTEMS: Done for constitutional, cardiovascular, GI, pulmonary; relevant findings as above. CURRENT MEDICATIONS: Included aspirin, Pletal, Florinef, IV Cortef. PHYSICAL EXAMINATION: Temperature 98.5, pulse 54, respirations 17, blood pressure 108/68, pulse ox 92%. GENERAL APPEARANCE: Sitting up, more comfortable. EYES: Pupils equal, conjunctivae are normal. HEENT: External appearance of nose and ears normal. Oral cavity normal. NECK: JVD not raised. Mass not palpable. Respiratory effort normal. LUNGS: Decreased breath sounds cardiovascular 1st exam no edema. ABDOMEN: Soft, nontender. Liver and spleen not palpable. PSYCHIATRY: Alert and oriented x3. Mood and affect was normal. INVESTIGATIONS: White count 8.9, hemoglobin 15.4 potassium 5. ASSESSMENT: 1. Episode of dizziness with some contribution from bradycardia. Patient's pacemaker is being adjusted. 2. Severe orthostatic hypotension, could be from autonomic dysfunction. Patient is started on Florinef. Nurse reminded to put the SKYLA stockings on. 3. Recent course of steroids for back pain for which patient was put on hydrocortisone. 4. Essential hypertension. 5. Hyperlipidemia. 6. Primary osteoarthritis of lumbar degenerative joint disease of the spine. 7. Benign prostatic hypertrophy. 8. Nonobstructive coronary artery disease, ejection fraction 65% from cardiac catheterization. 9. Permanent pacemaker. PLAN: Continue current medication and treatment plan. The patient can be moved out of the ICU. We will see how the patient's symptoms continue with orthostatic management of blood pressure. MMODL / IJN: [id number] /
[2018-06-10 14:06] VITALS: TEMP 98
[2018-06-10 14:07] VITALS: PULSE 67
[2018-06-10 16:00] VITALS: BP 144/79
--- NOTE | 2018-06-11 07:27 | DS ---
DISCHARGE SUMMARY DATE OF ADMISSION: 06/08/2018 DATE OF DISCHARGE: 06/10/2018 FINAL DIAGNOSES: 1. Severe dizziness from bradycardia, permanent pacemaker was adjusted. 2. Severe orthostatic hypotension probably could be from autonomic dysfunction, responded to Florinef. 3. Mild hypoadrenalism from recent steroids, responded well to IV hydrocortisone. 4. Essential hypertension. 5. Hyperlipidemia. 6. Primary osteoarthritis of lumbar degenerative joint disease of the spine. 7. Benign prostatic hypertrophy. 8. Nonobstructive coronary artery disease with 65% obstruction from prior cardiac catheterization. HOSPITAL COURSE: This patient with dizziness, lightheaded. Found to have heart rate down to the 40s. Pacemaker has been set for the 40s previously, it was adjusted to be set at 60. Also patient found to be significantly orthostatic. I did order Florinef and SKYLA stockings, which patient responded well. Also the patient was given some hydrocortisone because patient recently finished a course of steroids for his back. Doing much better at this time. Symptoms are greatly improved. CONSULTATION: Dr. Curry from Cardiology. ON EXAM: Lungs are clear. CARDIOVASCULAR: First and second sounds normal. DISCHARGE MEDICATIONS: 1. Allopurinol 300 mg p.o. daily. 2. Pletal 100 mg p.o. b.i.d. 3. Nitrostat 0.4 sublingual q.5 p.r.n. 4. Pravachol 10 mg p.o. daily. 5. Neurontin 300 mg b.i.d. 6. Aspirin 81 mg a day. 7. Imdur ER 30 mg a day. 8. Trazodone 200 mg at bedtime. 9. Florinef 0.1 mg p.o. b.i.d. 10.Tylenol 500 mg daily. 11.Cozaar 50 mg b.i.d. 12.Prednisone taper. Patient to wear SKYLA stockings. Follow up with Dr. Schroeder on 06/23/2018. Follow up with Dr. Cowan in 1 week. MMODL / IJN: [id number] /
== END 2018-06-10 18:06 | disposition home or self-care (01) ==
LOC: EC 08:24 → 6ICU 11:11 → UNDOADMOB 11:11 → 6SEL 11:11 → 6ICU 14:31 → 6SEL 06-09 17:57
PROVIDERS: ADMIT Hospitalist; ATTEND Hospitalist
DX: R00.1 Bradycardia, unspecified (principal); I95.1 Orthostatic hypotension; Z95.0 Presence of cardiac pacemaker; I10 Essential (primary) hypertension; M47.816 Spondylosis without myelopathy or radiculopathy, lumbar region; I25.119 Atherosclerotic heart disease of native coronary artery with unspecified angina pectoris; E27.49 Other adrenocortical insufficiency; T38.0X5A Adverse effect of glucocorticoids and synthetic analogues, initial encounter; N40.0 Benign prostatic hyperplasia without lower urinary tract symptoms; M19.91 Primary osteoarthritis, unspecified site; E78.5 Hyperlipidemia, unspecified; K11.20 Sialoadenitis, unspecified; G89.29 Other chronic pain; M54.42 Lumbago with sciatica, left side; M54.41 Lumbago with sciatica, right side; I73.9 Peripheral vascular disease, unspecified; F10.21 Alcohol dependence, in remission; M10.9 Gout, unspecified; F41.9 Anxiety disorder, unspecified; F17.200 Nicotine dependence, unspecified, uncomplicated; Z79.82 Long term (current) use of aspirin; Z79.899 Other long term (current) drug therapy; Z88.2 Allergy status to sulfonamides; Z87.01 Personal history of pneumonia (recurrent); Z88.5 Allergy status to narcotic agent; Z82.49 Family history of ischemic heart disease and other diseases of the circulatory system; Z81.8 Family history of other mental and behavioral disorders
CPT/HCPCS: 96361 ×9; 99285 ×2; 96376 ×2; 96374; 36415; 93005; 80053 ×2; 82533; 82550; 82553; 83605; 83735; 84484; 85025 ×2; 85610; 85730; 81003; 87040; 71045; 71046; G0378 ×4; J1720 ×2; 96375

== ENCOUNTER → 2019-01-06 | Outpatient (CLI) | payer MEDICARE ==
[2019-01-06 11:23] LABS: Basophils % (A) 1 %; Eosinophils # (A) 0.1 k/uL (0-0.7); Eosinophils % (A) 1 %; HCT 46.3 % (39.0-53.0); Lymphocytes # (A) 1.5 k/uL (1.0-4.8); Lymphocytes % (A) 27 %; MCH 29.6 pg (25.0-35.0); MCHC 32.3 g/dL (31.0-37.0); MCV 91.6 fL (80.0-100.0); Mean Platelet Volume 6.7; Monocytes # (A) 0.4 k/uL (0-1.0); Monocytes % (A) 7 %; Neutrophils # (A) 3.4 k/uL (1.3-7.7); Neutrophils % (A) 62 %; Platelet Count 206 k/uL (150-450); RBC 5.05 m/uL (4.30-5.90); RDW 13.5 % (11.5-15.5); WBC 5.4 k/uL (3.8-10.6)
[2019-01-06 15:51] LABS: Albumin 4.5 g/dL (3.80-4.90); Albumin/Globulin Ratio 2.37 (1.60-3.17); Anion Gap 5.9 mmol/L (4.00-12.00); Calcium 9.6 mg/dL (8.7-10.3); Carbon Dioxide 29.1 mmol/L (21.6-31.8); Globulin 1.9 g/dL (1.6-3.3); LDL Cholesterol,Calculated 83.6 mg/dL (0.0-131.0); Potassium 4.6 mmol/L (3.5-5.5); Total Bilirubin 0.6 mg/dL (0.2-1.2); Total Protein 6.4 g/dL (6.2-8.2); Uric Acid 3.2 mg/dL (3.7-8.7); VLDL Calculation 30.4 mg/dL (5.00-40.00)
== END | disposition home or self-care (01) ==
LOC: LABWHC1 10:05
PROVIDERS: ATTEND Internal Medicine
DX: Z00.00 Encounter for general adult medical examination without abnormal findings (principal); I10 Essential (primary) hypertension; E78.5 Hyperlipidemia, unspecified; G62.9 Polyneuropathy, unspecified
CPT/HCPCS: 36415; 80053; 80061; 82607; 84439; 84443; 84550; 85025

== ENCOUNTER 2019-06-14 11:47 | Emergency (ER) | payer MEDICARE ==
[2019-06-14] MEDS ORDERED: SODIUM CHLORIDE 0.9% 1,000 ML IV STA (12:10)
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
[2019-06-14 12:36] LABS: Basophils % (A) 0 %; Eosinophils # (A) 0.1 k/uL (0-0.7); Eosinophils % (A) 1 %; HCT 46.1 % (39.0-53.0); HGB 15.6 gm/dL (13.0-17.5); Lymphocytes # (A) 1.4 k/uL (1.0-4.8); Lymphocytes % (A) 16 %; MCH 29.6 pg (25.0-35.0); MCHC 33.9 g/dL (31.0-37.0); MCV 87.3 fL (80.0-100.0); Mean Platelet Volume 7.2; Monocytes # (A) 0.5 k/uL (0-1.0); Monocytes % (A) 6 %; Neutrophils # (A) 6.8 k/uL (1.3-7.7); Neutrophils % (A) 76 %; Platelet Count 211 k/uL (150-450); RBC 5.28 m/uL (4.30-5.90); RDW 14.3 % (11.5-15.5)
[2019-06-14 12:50] LABS: INR 3.5 (<1.2); Partial Thromboplastin Time 44.5 sec (22.0-30.0); Prothrombin Time 33.6 sec (9.0-12.0)
[2019-06-14 12:55] LABS: Albumin 4.5 g/dL (3.5-5.0); Calcium 9.9 mg/dL (8.4-10.2); Magnesium 2.5 mg/dL (1.6-2.3); Phosphorus 3.6 mg/dL (2.5-4.5); Potassium 4.1 mmol/L (3.5-5.1); Total Bilirubin 0.5 mg/dL (0.2-1.3)
[2019-06-14 14:03] LABS: Appearance,Urine Clear (Clear); Bilirubin,Urine Negative (Negative); Blood,Urine Negative (Negative); Color,Urine Colorless; Glucose,Urine (UA) Negative (Negative); Ketones,Urine Negative (Negative); Leukocyte Esterase,Urine Negative (Negative); Nitrite,Urine Negative (Negative); Protein,Urine Negative (Negative); Specific Gravity,Urine 1.007 (1.001-1.035); Urobilinogen,Urine <2.0 mg/dL (<2.0)
[2019-06-14 15:20] VITALS: BP 125/87; PULSE 87; RESP 18; TEMP 97.4
== END 2019-06-14 15:20 | disposition home or self-care (01) ==
LOC: EC 11:47
DX: R53.1 Weakness (principal); R55 Syncope and collapse; R20.2 Paresthesia of skin; M25.522 Pain in left elbow; I48.91 Unspecified atrial fibrillation; I25.119 Atherosclerotic heart disease of native coronary artery with unspecified angina pectoris; E78.5 Hyperlipidemia, unspecified; I10 Essential (primary) hypertension; I25.2 Old myocardial infarction; M19.90 Unspecified osteoarthritis, unspecified site; F41.9 Anxiety disorder, unspecified; Z87.891 Personal history of nicotine dependence; Z88.2 Allergy status to sulfonamides; Z88.5 Allergy status to narcotic agent; Z79.01 Long term (current) use of anticoagulants; Z79.52 Long term (current) use of systemic steroids; Z79.82 Long term (current) use of aspirin; Z79.891 Long term (current) use of opiate analgesic; Z79.899 Other long term (current) drug therapy; Z95.0 Presence of cardiac pacemaker; Z98.890 Other specified postprocedural states
CPT/HCPCS: 36415; 80053; 81003; 82550; 83735; 83880; 84100; 84484; 85025; 85610; 85730; 93005; 96360; 96361; 99284

== ENCOUNTER 2020-09-18 08:22 | Emergency (ER) | payer MEDICARE ==
[2020-09-18 09:00] VITALS: TEMP 98
[2020-09-18] MEDS ORDERED: ORPHENADRINE 30 MG/ML 2 ML VIAL IM STA (09:36)
[2020-09-18] MEDS ORDERED: methylPREDNISolone SOD SUCCI 125 MG/2 ML VIAL IM ONE (09:36)
[2020-09-18] MEDS ORDERED: MORPHINE SULFATE 2 MG/ML SYRINGE IM STA (09:37)
--- NOTE | 2020-09-18 10:20 | XR ---
Lumbar spine HISTORY: Back pain 3 views of the lumbar spine correlated to prior exam 02/22/2016 Lumbar vertebral bodies show stable height, alignment, and bone mineralization. There is loss of disc height at L5-S1 with associated vacuum phenomenon, minimal retrolisthesis grade 1 L5-S1, anterolisth esis grade 1 L4-5. Sclerosis present in the posterior elements of the lower lumbar spine. There is mu ltilevel spondylosis. Apical scarring calcifications in the aortoiliac distribution. IMPRESSION: Stable exam. Degenerative disc disease and facet arthropathy.
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
[2020-09-18] MEDS ORDERED: traMADol 50 MG STARTER PACK 3 TAB BTL PO STA (10:34)
[2020-09-18 11:38] VITALS: RESP 18
[2020-09-18 11:39] VITALS: BP 147/88; PULSE 62
== END 2020-09-18 11:39 | disposition home or self-care (01) ==
LOC: EC 08:22
DX: M51.17 Intervertebral disc disorders with radiculopathy, lumbosacral region (principal); I10 Essential (primary) hypertension; I25.119 Atherosclerotic heart disease of native coronary artery with unspecified angina pectoris; E78.5 Hyperlipidemia, unspecified; M19.90 Unspecified osteoarthritis, unspecified site; F41.9 Anxiety disorder, unspecified; I25.2 Old myocardial infarction; Z79.82 Long term (current) use of aspirin; Z79.899 Other long term (current) drug therapy; Z79.01 Long term (current) use of anticoagulants; Z88.5 Allergy status to narcotic agent; Z88.2 Allergy status to sulfonamides; Z87.891 Personal history of nicotine dependence
CPT/HCPCS: 72100; 99284; 96372 ×3; J2360; J2930; J2270

== ENCOUNTER 2020-09-27 11:40 | Inpatient (IN) | payer MEDICARE ==
[2020-09-27] MEDS ORDERED: SODIUM CHLORIDE 0.9% 1,000 ML IV STA (11:58)
[2020-09-27] MEDS ORDERED: SODIUM CHLORIDE 0.9% 500 ML 500 ML IV ONE ×2 (12:19→13:50)
[2020-09-27 12:26] LABS: Basophils # (A) 0.1 k/uL (0-0.2); Basophils % (A) 1 %; Eosinophils # (A) 0.1 k/uL (0-0.7); Eosinophils % (A) 1 %; HCT 48.4 % (39.0-53.0); HGB 16.1 gm/dL (13.0-17.5); Lymphocytes # (A) 0.8 k/uL (1.0-4.8); Lymphocytes % (A) 9 %; MCH 30.2 pg (25.0-35.0); MCHC 33.2 g/dL (31.0-37.0); MCV 90.8 fL (80.0-100.0); Mean Platelet Volume 7.3; Monocytes # (A) 0.5 k/uL (0-1.0); Monocytes % (A) 6 %; Neutrophils # (A) 7.6 k/uL (1.3-7.7); Neutrophils % (A) 83 %; Platelet Count 190 k/uL (150-450); RBC 5.33 m/uL (4.30-5.90); RDW 13.2 % (11.5-15.5); WBC 9.2 k/uL (3.8-10.6)
[2020-09-27 12:39] LABS: Calcium 9.2 mg/dL (8.4-10.2); Magnesium 2.3 mg/dL (1.6-2.3); Potassium 3.9 mmol/L (3.5-5.1); Total Protein 6.5 g/dL (6.3-8.2)
[2020-09-27 12:44] LABS: D-Dimer 0.26 mg/L FEU (<0.60); INR 4.7 (<1.2); Partial Thromboplastin Time 49.3 sec (22.0-30.0)
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
--- NOTE | 2020-09-27 12:56 | XR ---
EXAMINATION TYPE: XR chest 2V DATE OF EXAM: 09/27/2020 COMPARISON: NONE HISTORY: Difficulty breathing. Chest x-ray July 03, 2020 TECHNIQUE: Frontal and lateral views of the chest are obtained. FINDINGS: There is chronic parenchymal changes with left basilar atelectasis and/or scarring redemon strated. Right lung remains clear. No pleural effusion or pneumothorax seen bilaterally. The cardiac silhouette size is stable and upper limits of normal dual-lead pacemaker. The osseous structures a re intact. IMPRESSION: Chronic changes without new suspicious acute pulmonary process.
[2020-09-27] MEDS ORDERED: NALOXONE 0.4 MG/ML 1 ML VIAL IV PRN (13:51)
[2020-09-27] MEDS ORDERED: traMADol 50 MG TAB PO PRN (16:05)
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
[2020-09-27 16:32] LABS: Appearance,Urine Clear (Clear); Bilirubin,Urine Negative (Negative); Blood,Urine Negative (Negative); Color,Urine Yellow; Glucose,Urine (UA) Negative (Negative); Ketones,Urine 1+ (Negative); Leukocyte Esterase,Urine Negative (Negative); Nitrite,Urine Negative (Negative); Protein,Urine Negative (Negative); Specific Gravity,Urine 1.027 (1.001-1.035)
[2020-09-27] MEDS: CYCLOBENZAPRINE 10 MG TAB PO SCH (21:16)
[2020-09-27] MEDS: GABAPENTIN 300 MG CAP PO SCH (21:16)
[2020-09-27] MEDS: cilostazoL 100 MG TAB PO SCH (21:16)
[2020-09-27] MEDS: traZODone HCL 100 MG TAB PO SCH (21:17)
[2020-09-28] MEDS: ASPIRIN 81 MG PO SCH (08:18)
[2020-09-28] MEDS: GABAPENTIN 300 MG CAP PO SCH ×2 (08:19→20:06)
[2020-09-28] MEDS: CYCLOBENZAPRINE 10 MG TAB PO SCH ×3 (08:19→21:20)
[2020-09-28] MEDS: cilostazoL 100 MG TAB PO SCH ×2 (08:19→20:06)
[2020-09-28] MEDS: allopurinoL 300 MG TAB PO SCH (08:20)
[2020-09-28] MEDS ORDERED: FLUDROCORTISONE 0.1 MG TAB PO STA (12:33)
[2020-09-28 13:18] VITALS: BMI 27.6
[2020-09-28] MEDS: ACETAMINOPHEN TAB 325 MG TAB PO PRN (15:13)
--- NOTE | 2020-09-28 17:13 | CT ---
EXAMINATION TYPE: CT brain wo con DATE OF EXAM: 09/28/2020 COMPARISON: 08/30/2017 HISTORY: AMS CT DLP: 1069.10 mGycm Automated exposure control for dose reduction was used. There is some cerebral cortical atrophy. There is no mass effect nor midline shift. There is no sign of intracranial hemorrhage. The calvarium is intact. IMPRESSION: Cerebral atrophy. No acute intracranial abnormality. No change compared to old exam.
--- NOTE | 2020-09-28 18:01 | P.PN ---
Progress Note - Text Progress Note Date: 09/28/20 Presenting complaint: Dizziness History of presenting complaint: [Per DrKirsty sheet] This is a pleasant 74 years old male with past medical medical problems including hypertension, hyperlipidemia, osteoarthritis, coronary artery disease, orthostatic hypertension and vertigo, near syncope with bradycardia, chronic low back pain, right-sided sciatica, benign prostatic hypertrophy . No other patient nor her daughter know why the patient is taken warfarin, he states he never had blood clots before in his leg. He is not sure if he has atrial fibrillation but he knows he has pacemaker. His photo studio assistant is Dr. Barragan. And patient is scheduled for procedure with his doctor in 2-3 weeks to check the arteries of the legs patient presents with acute on chronic dizziness, nonspecific. No vertigo. It was worse over the last week and he was about to fall but he did not fall or hit his body Patient denies falling, no chest pain or dyspnea, no abdominal pain, no change in urine or bowel habits. No decrease appetite or eating. No fever Blood pressure is on the low normal side, orthostatic were checked and they were positive for the drop of blood pressure from 114/68 supine to 80/55 from understanding. The patient has unremarkable CBC, BMP and liver enzymes, troponin is negative with less than 0.012. His INR is significantly elevated at 4.7 and d-dimer is negative at 0.2 Today-feeling better. Very keen to go home. Insistent that he he needs to go home as his fiance is having trouble with her hip. The daughter called over the phone that patient was not acting right. Patient's fianc did come in. She noticed that the patient was noticing things not present in the room. she did say that he does this sometimes. Patient reported a boy sitting on his bed. Review of systems: Was done for constitutional, cardiovascular, GI, pulmonary. relevant finding as above Active Medications Acetaminophen (Acetaminophen Tab 325 Mg Tab) 650 mg PO Q6HR PRN PRN Reason: Mild Pain or Fever > 100.5 Last Admin: 09/28/20 15:13 Dose: 650 mg Documented by: Allopurinol (Allopurinol 300 Mg Tab) 300 mg PO DAILY [facility] Last Admin: 09/28/20 08:20 Dose: 300 mg Documented by: Aspirin (Aspirin 81 Mg) 81 mg PO DAILY [facility] Last Admin: 09/28/20 08:18 Dose: 81 mg Documented by: Cilostazol (Cilostazol 100 Mg Tab) 100 mg PO BID [facility] Last Admin: 09/28/20 08:19 Dose: 100 mg Documented by: Cyclobenzaprine HCl (Cyclobenzaprine 10 Mg Tab) 10 mg PO TID [facility] Last Admin: 09/28/20 08:19 Dose: 10 mg Documented by: Fludrocortisone Acetate (Fludrocortisone 0.1 Mg Tab) 0.05 mg PO BID [facility] Gabapentin (Gabapentin 300 Mg Cap) 300 mg PO BID [facility] Last Admin: 09/28/20 08:19 Dose: 300 mg Documented by: Naloxone HCl (Naloxone 0.4 Mg/Ml 1 Ml Vial) 0.2 mg IV Q2M PRN PRN Reason: Opioid Reversal Tramadol HCl (Tramadol 50 Mg Tab) 50 mg PO TID PRN PRN Reason: Muscle Spasm Trazodone HCl (Trazodone Hcl 100 Mg Tab) 200 mg PO HS [facility] Last Admin: 09/27/20 21:17 Dose: 200 mg Documented by: On examination: VITAL SIGNS: 97.3, 95, 16, 133/76, 92% room air [orthostatics positive] GENERAL APPEARANCE: Sitting up, comfortable HEENT: Normal external appearance of nose and ear. Oral cavity normal EYES: Pupils equal. Conjunctiva normal. NECK: JVD not raised. Mass not palpable. RESPIRATORY: Respiratory effort normal. Lungs clear to auscultation. CARDIOVASCULAR: First and second sounds normal. No edema. ABDOMEN: Soft. Liver and spleen not palpable. No tenderness. No mass palpable. PSYCHIATRY: Answering questions appropriately. Additional as per the nursing staff above. Patient was noted to be walking in the room. INVESTIGATIONS, reviewed in the clinical context: White count 9.2 hemoglobin 16.1 INR 4.7 potassium 3.9 creatinine 1.07 UA positive for ketones 1+ Computed tomography scan of the brain-nil acute. EKG-normal sinus rhythm Chest [id number] parenchymal changes Assessment: -Orthostatic hypertension, symptomatic. Patient be given SKYLA stockings as started on Florinef. -Vision hallucinations. Rule out psychosis. -Coronary artery disease with history of silent NC -Hyperlipidemia -Essential hypertension -Primary osteoarthritis -BPH -Pacemaker-DDD Plan: Patient started on Florinef 0.05 mg twice a day and SKYLA stockings. We'll give a psychiatry opinion. Care was discussed with the patient.
[2020-09-28] MEDS: FLUDROCORTISONE 0.1 MG TAB PO SCH (20:06)
[2020-09-28] MEDS: traZODone HCL 100 MG TAB PO SCH (20:06)
[2020-09-29] MEDS: ACETAMINOPHEN TAB 325 MG TAB PO PRN ×2 (02:51→18:02)
[2020-09-29] MEDS: METOPROLOL TARTRATE 50 MG TAB PO SCH ×3 (02:51→20:21)
[2020-09-29] MEDS: FLUDROCORTISONE 0.1 MG TAB PO SCH ×2 (08:54→20:22)
[2020-09-29] MEDS: GABAPENTIN 300 MG CAP PO SCH ×2 (08:54→20:20)
[2020-09-29] MEDS: CYCLOBENZAPRINE 10 MG TAB PO SCH (08:54)
[2020-09-29] MEDS: ASPIRIN 81 MG PO SCH (08:55)
[2020-09-29] MEDS: cilostazoL 100 MG TAB PO SCH ×2 (08:55→20:20)
[2020-09-29] MEDS: allopurinoL 300 MG TAB PO SCH (08:55)
[2020-09-29] MEDS ORDERED: ZIPRASIDONE 20 MG VIAL IM STA (10:56)
[2020-09-29] MEDS ORDERED: QUEtiapine 25 MG TAB PO PRN (11:39)
[2020-09-29] MEDS ORDERED: HALOPERIDOL LACTATE 5 MG/ML 1 ML VIAL IM PRN (11:40)
--- NOTE | 2020-09-29 11:54 | P.MHFACE ---
Face to Face Restrain/Seclus - Evaluation Patient's Immediate Situation: Endangers self safety, Endangers others' safety, Endangers staff safety, Violent behavior Patient's Reaction to the Intervention: Angry, Hostile, Belligerent, Anxious Patient's Medical & Behavioral Condition: Awake, Alert, Confused, Anxious, Agitated Need to Continue or Terminate Restraint or Seclusion: Continue
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
[2020-09-29 12:30] LABS: INR 2.8 (<1.2); Prothrombin Time 27.3 sec (9.0-12.0)
[2020-09-29] MEDS ORDERED: CYCLOBENZAPRINE 5 MG TAB PO SCH (13:00)
[2020-09-29] MEDS ORDERED: CYCLOBENZAPRINE 5 MG TAB PO PRN (17:55)
[2020-09-29] MEDS: traZODone HCL 100 MG TAB PO SCH (20:20)
[2020-09-29] MEDS: QUEtiapine 25 MG TAB PO SCH (20:22)
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
[2020-09-30] MEDS: GABAPENTIN 300 MG CAP PO SCH (08:46)
[2020-09-30] MEDS: cilostazoL 100 MG TAB PO SCH (08:47)
[2020-09-30] MEDS: ASPIRIN 81 MG PO SCH (08:47)
[2020-09-30] MEDS: allopurinoL 300 MG TAB PO SCH (08:47)
[2020-09-30] MEDS: FLUDROCORTISONE 0.1 MG TAB PO SCH (08:47)
[2020-09-30] MEDS: QUEtiapine 25 MG TAB PO SCH (08:47)
[2020-09-30] MEDS: ACETAMINOPHEN TAB 325 MG TAB PO PRN (08:52)
[2020-09-30] MEDS: METOPROLOL TARTRATE 50 MG TAB PO SCH (12:55)
[2020-09-30 15:46] VITALS: BP 117/72; PULSE 63; RESP 16; TEMP 98.2
--- NOTE | 2020-09-30 19:00 | P.CN ---
Psychiatric Consult - . Consult date: 09/30/20 Consult:: 09/30/20 18:50 Thank you for this referral I saw the patient in room 325 along with his daughter. 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 When I was slow and specific in asking for the month and year he was able to recall them. He was somwhat slow in his responses and in processing what was happening. He could subtract 7 from 100 and get 93 but in subtracting 7 but in subtracting 7 from that he got 103. He could name 2 of the great [employer] even though he is from [place]. The mental processing is slow and slightly impaired. The addition of pain meds probably threw his limited processing over the edge and he had a dream like confused agitated state similar to . He is not suicidal or homicidal and is pleasant and oriented to place and name and his daughter and even has a sense of humor. ASSESSMENT: He is safe for discharge SUGGESTIONS: Since we should avoid strong pain meds, consider increasing the frequency of gabapentin to TID as it probably wears off for the middle of the day. You could also consider 30 mg of Cymbalta to increase his ability to ignore the pain. Sincerely Deepa Asher MD Psychiatrist
--- NOTE | 2020-09-30 23:32 | P.DS ---
Providers Date of admission: 09/27/20 13:51 Expected date of discharge: 09/30/20 Attending physician: Dm Flower Consults: 09/28/20 14:30 Consult Physician Routine Consulting Provider: Charan White Reason/Comments: hallucinations/psychosis Do you want consulting provider notified?: Yes Primary care physician: [facility] Course: Presenting complaint: Dizziness History of presenting complaint: [Per DrKirsty sheet] This is a pleasant 74 years old male with past medical medical problems including hypertension, hyperlipidemia, osteoarthritis, coronary artery disease, orthostatic hypertension and vertigo, near syncope with bradycardia, chronic low back pain, right-sided sciatica, benign prostatic hypertrophy . No other patient nor her daughter know why the patient is taken warfarin, he states he never had blood clots before in his leg. He is not sure if he has atrial fibrillation but he knows he has pacemaker. His agronomist is Dr. Barragan. A nd patient is scheduled for procedure with his doctor in 2-3 weeks to check the arteries of the legs patient presents with acute on chronic dizziness, nonspecific. No vertigo. It was worse over the last week and he was about to fall but he did not fall or hit his body Patient denies falling, no chest pain or dyspnea, no abdominal pain, no change in urine or bowel habits. No decrease appetite or eating. No fever Blood pressure is on the low normal side, orthostatic were checked and they were positive for the drop of blood pressure from 114/68 supine to 80/55 from understanding. The patient has unremarkable CBC, BMP and liver enzymes, troponin is negative with less than 0.012. His INR is significantly elevated at 4.7 and d-dimer is negative at 0.2. Patient started on Florinef for his orthostatic hypertension. SKYLA stockings were added. Patient was noticed to have visual hallucinations. Patient's daughter and girlfriend told us that some of these symptoms have been coming on for a while. More pronounced now. Diagnosed with psychosis. Also some neurocognitive decline. Patient seen by psychiatry. Medication adjusted per them. Seroquel added. Orthostatic symptoms are better after adding Florinef. Today-patient doing much better. Has remained calm. Patient's fianc and his daughter were present. Spoke to them at length. Patient seen by psychiatry later today and cleared for discharge. Follow-up with psychiatry as outpatient. Discussion and discharge planning more than 35 minutes Consultation: Psychiatry On examination: VITAL SIGNS: 98.2, 63, 16, 117/72, 94% room air GENERAL APPEARANCE: Laying in bed, comfortable HEENT: Normal external appearance of nose and ear. Oral cavity normal EYES: Pupils equal. Conjunctiva normal. NECK: JVD not raised. Mass not palpable. RESPIRATORY: Respiratory effort normal. Lungs clear to auscultation. CARDIOVASCULAR: First and second sounds normal. No edema. ABDOMEN: Soft. Liver and spleen not palpable. No tenderness. No mass palpable. PSYCHIATRY: answering questions INVESTIGATIONS, reviewed in the clinical context: INR 2.8 Previous testing White count 9.2 hemoglobin 16.1 INR 4.7 potassium 3.9 creatinine 1.07 UA positive for ketones 1+ Computed tomography scan of the brain-nil acute. EKG-normal sinus rhythm Chest [id number] parenchymal changes Assessment: -Orthostatic hypertension, symptomatic. Patient be given SKYLA stockings as started on Florinef. -Vision hallucinations. possible psychosis. . -Coronary artery disease with history of silent [place] -Hyperlipidemia -Essential hypertension -Primary osteoarthritis -BPH -Pacemaker-DDD -Mild cognitive impairment. Disposition: Home Labs: INR-3 days Patient Condition at Discharge: Stable Plan - Discharge Summary Discharge Rx Participant: No New Discharge Prescriptions: New Cyclobenzaprine [Flexeril] 5 mg PO QID PRN #20 tab PRN Reason: Mild Spasms Fludrocortisone [Florinef] 0.05 mg PO BID #60 tab Metoprolol Tartrate [Lopressor] 25 mg PO BID #60 tablet QUEtiapine [SEROquel] 25 mg PO BID #60 tab Continue Cilostazol [Pletal] 100 mg PO BID allopurinoL [Zyloprim] 300 mg PO DAILY Nitroglycerin Sl Tabs [Nitrostat] 0.4 mg SL Q5M PRN PRN Reason: Chest Pain Pravastatin Sodium [Pravachol] 10 mg PO HS Gabapentin [Neurontin] 300 mg PO BID traZODone HCL 200 mg PO HS Aspirin EC [Ecotrin Low Dose] 81 mg PO DAILY traMADol HCl [Ultram] 50 mg PO TID PRN PRN Reason: Muscle Spasm Changed Warfarin Sodium [Jantoven] 2.5 mg PO DAILY #0 Discontinued Cyclobenzaprine [Flexeril] 10 mg PO TID #12 tab Losartan [Cozaar] 25 mg PO DAILY Warfarin Sodium [Jantoven] 5 mg PO SUTUTHSA Discharge Medication List Cilostazol [Pletal] 100 mg PO BID 07/14/14 [History] allopurinoL [Zyloprim] 300 mg PO DAILY 07/14/14 [History] Nitroglycerin Sl Tabs [Nitrostat] 0.4 mg SL Q5M PRN 07/18/14 [History] Pravastatin Sodium [Pravachol] 10 mg PO HS 04/23/16 [History] Gabapentin [Neurontin] 300 mg PO BID 08/08/16 [History] Aspirin EC [Ecotrin Low Dose] 81 mg PO DAILY 05/19/17 [History] traZODone HCL 200 mg PO HS 05/19/17 [History] traMADol HCl [Ultram] 50 mg PO TID PRN 09/27/20 [History] Warfarin Sodium [Jantoven] 2.5 mg PO DAILY #0 09/28/20 [Rx] Cyclobenzaprine [Flexeril] 5 mg PO QID PRN #20 tab 09/30/20 [Rx] Fludrocortisone [Florinef] 0.05 mg PO BID #60 tab 09/30/20 [Rx] Metoprolol Tartrate [Lopressor] 25 mg PO BID #60 tablet 09/30/20 [Rx] QUEtiapine [SEROquel] 25 mg PO BID #60 tab 09/30/20 [Rx] Follow up Appointment(s)/Referral(s): Rj Baca MD [Primary Care Provider] - 1-2 days Activity/Diet/Wound Care/Special Instructions: fall precautions SKYLA below knee - both legs inr- 3 days Discharge Disposition: HOME SELF-CARE
== END 2020-09-30 20:10 | disposition home or self-care (01) | DRG 312 ==
LOC: SUPCPDRO 11:40 → EC 11:40 → 3NCARDOBS 13:51 → OBSVTOIN 09-29 15:18 → UNDODISOB 09-30 20:10
PROVIDERS: ADMIT Hospitalist; ATTEND Hospitalist
DX: I95.1 Orthostatic hypotension (principal); D68.9 Coagulation defect, unspecified; M19.91 Primary osteoarthritis, unspecified site; N40.0 Benign prostatic hyperplasia without lower urinary tract symptoms; I48.91 Unspecified atrial fibrillation; I25.2 Old myocardial infarction; I25.10 Atherosclerotic heart disease of native coronary artery without angina pectoris; I10 Essential (primary) hypertension; G89.29 Other chronic pain; E78.5 Hyperlipidemia, unspecified; F29 Unspecified psychosis not due to a substance or known physiological condition; G31.84 Mild cognitive impairment of uncertain or unknown etiology; M54.31 Sciatica, right side; R45.1 Restlessness and agitation; Z78.1 Physical restraint status; Z82.0 Family history of epilepsy and other diseases of the nervous system; Z82.3 Family history of stroke; Z82.49 Family history of ischemic heart disease and other diseases of the circulatory system; Z87.01 Personal history of pneumonia (recurrent); Z88.5 Allergy status to narcotic agent; Z88.2 Allergy status to sulfonamides; Z79.01 Long term (current) use of anticoagulants; Z79.02 Long term (current) use of antithrombotics/antiplatelets; Z79.82 Long term (current) use of aspirin; Z79.899 Other long term (current) drug therapy; Z87.891 Personal history of nicotine dependence; Z95.0 Presence of cardiac pacemaker; Z90.89 Acquired absence of other organs
CPT/HCPCS: 36415; 70450; 71046; 80053; 81003; 83605; 83735; 83880; 84484; 85025; 85379; 85610; 85730; 93005

== ENCOUNTER 2022-11-19 17:32 | Inpatient (IN) | payer MEDICARE ==
[2022-11-19] MEDS ORDERED: SODIUM CHLORIDE 0.9% 500 ML 500 ML IV ONE (18:51)
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
[2022-11-19 19:26] LABS: Basophils % (A) 1 %; Eosinophils # (A) 0.2 k/uL (0-0.7); Eosinophils % (A) 3 %; HCT 44.9 % (39.0-53.0); HGB 15.1 gm/dL (13.0-17.5); Lymphocytes # (A) 0.9 k/uL (1.0-4.8); Lymphocytes % (A) 13 %; MCH 30.8 pg (25.0-35.0); MCHC 33.5 g/dL (31.0-37.0); MCV 91.9 fL (80.0-100.0); Mean Platelet Volume 8.1; Monocytes # (A) 0.5 k/uL (0-1.0); Monocytes % (A) 8 %; Neutrophils % (A) 74 %; Platelet Count 121 k/uL (150-450); RBC 4.89 m/uL (4.30-5.90); RDW 12.6 % (11.5-15.5); WBC 6.7 k/uL (3.8-10.6)
[2022-11-19 19:38] LABS: Appearance,Urine Clear (Clear); Bilirubin,Urine Negative (Negative); Blood,Urine Small (Negative); Color,Urine Yellow; Glucose,Urine (UA) Negative (Negative); Ketones,Urine Negative (Negative); Leukocyte Esterase,Urine Negative (Negative); Mucus,Urine Rare /hpf; Nitrite,Urine Negative (Negative); PH, Urine 5.5 (5.0-8.0); Protein,Urine Negative (Negative); RBC,Urine 2 /hpf (0-5); Specific Gravity,Urine 1.018 (1.001-1.035); Urobilinogen,Urine <2.0 mg/dL (<2.0); WBC,Urine <1 /hpf (0-5)
[2022-11-19 19:41] LABS: ALT 17 U/L (4-49); AST 21 U/L (17-59); Acetaminophen <10.0 ug/mL; African American GFR (CKD) 81 (>60 ml/min/1.73 sqM); Albumin 4.5 g/dL (3.5-5.0); Alcohol <10 mg/dL; Alkaline Phosphatase 61 U/L (38-126); Anion Gap 8 mmol/L; Blood Urea Nitrogen 15 mg/dL (9-20); Calcium 9.1 mg/dL (8.4-10.2); Carbon Dioxide 28 mmol/L (22-30); Chloride 106 mmol/L (98-107); Glucose 118 mg/dL (74-99); Non-African American GFR(CKD) 70 (>60 ml/min/1.73 sqM); Potassium 4.3 mmol/L (3.5-5.1); Salicylate <1.0 mg/dL; Sodium 142 mmol/L (137-145); Total Bilirubin 0.4 mg/dL (0.2-1.3); Total Protein 6.9 g/dL (6.3-8.2)
[2022-11-19 19:47] LABS: INR 1.4 (<1.2); Partial Thromboplastin Time 30.3 sec (22.0-30.0); Prothrombin Time 14.6 sec (9.0-12.0)
[2022-11-19 20:07] LABS: Amphetamine Screen,Urine Not Detected (NotDetected); Barbiturate Screen,Urine Not Detected (NotDetected); Benzodiazepines Screen,Urine Not Detected (NotDetected); Cocaine Screen,Urine Not Detected (NotDetected); Methadone Screen, Urine Not Detected (NotDetected); Opiate Screen,Urine Not Detected (NotDetected); Oxycodone Screen, Urine Not Detected (NotDetected); Phencyclidine Screen,Urine Not Detected (NotDetected); Tricyclic Antidepressant,Urine Not Detected (NotDetected); Urn Cannabinoid Scrn Not Detected (NotDetected)
--- NOTE | 2022-11-19 20:35 | XR ---
EXAMINATION TYPE: XR chest 2V DATE OF EXAM: 11/19/2022 COMPARISON: Chest x-ray September 27, 2020 HISTORY: Cough. TECHNIQUE: Frontal and lateral views of the chest are obtained. FINDINGS: There is bibasilar opacity on current study. No pleural effusion or pneumothorax seen bila terally. Cardiomegaly redemonstrated with dual-lead pacemaker. The osseous structures are intact. IMPRESSION: Cardiomegaly with bibasilar acute infiltrate and/or atelectasis noted on current study.
--- NOTE | 2022-11-19 21:02 | CT ---
EXAMINATION TYPE: CT brain wo con DATE OF EXAM: 11/19/2022 HISTORY: Altered mental status CT DLP: 1202.4 mGycm. Automated Exposure Control for Dose Reduction was Utilized. TECHNIQUE: CT scan of the head is performed without contrast. COMPARISON: CT brain September 28, 2020. FINDINGS: There is no acute intracranial hemorrhage or midline shift identified. There is mild to m oderate diffuse ventricular and sulcal prominence consistent with diffuse age-related cerebral atroph y. May-white matter differentiation fairly well maintained. The globes are intact and the visualize d sinuses are clear. IMPRESSION: No acute intracranial hemorrhage or midline shift. There is mild to moderate diffuse ce rebral atrophy redemonstrated. No significant change from prior CT.
[2022-11-19] MEDS ORDERED: HALOPERIDOL LACTATE 5 MG/ML 1 ML VIAL IVP STA ×2 (21:27→21:34)
[2022-11-19] MEDS ORDERED: AZITHROMYCIN 500 MG in SODIUM CHLORIDE 0.9% 250 ML IVPB ONE (22:20)
[2022-11-19] MEDS ORDERED: PNEUMONIA PROTOCOL UTILIZED 1 EACH MISC PO PRN (22:20)
[2022-11-20] MEDS: traZODone HCL 100 MG TAB PO SCH ×2 (00:08→21:49)
[2022-11-20] MEDS: METOPROLOL TARTRATE 25 MG TAB PO SCH ×3 (00:08→21:49)
[2022-11-20] MEDS ORDERED: WARFARIN 2 MG TAB PO ONE (00:45)
[2022-11-20] MEDS ORDERED: AZITHROMYCIN 500 MG in SODIUM CHLORIDE 0.9% 250 ML IVPB ONE (01:00)
[2022-11-20] MEDS ORDERED: LORazepam 2 MG/ML INJ IV PRN (02:32)
[2022-11-20] MEDS: GABAPENTIN 300 MG CAP PO SCH ×2 (09:45→21:49)
[2022-11-20] MEDS: FLUDROCORTISONE 0.1 MG TAB PO SCH (09:46)
--- NOTE | 2022-11-20 10:57 | XR ---
EXAMINATION TYPE: XR chest 2V DATE OF EXAM: 11/20/2022 COMPARISON: 11/19/2022 INDICATION: Pneumonia TECHNIQUE: Frontal and lateral views of the chest are obtained. FINDINGS: The heart size is normal. The pulmonary vasculature is normal. The lungs are clear. Pacemaker overlies the left chest. IMPRESSION: 1. No acute pulmonary process. Previous basilar infiltrates have largely resolved.
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
[2022-11-20 11:49] LABS: INR 1.39 (0.90-1.11); Prothrombin Time 15.5 sec (9.9-11.9)
--- NOTE | 2022-11-20 12:27 | CT ---
EXAMINATION TYPE: CT chest wo con DATE OF EXAM: 11/20/2022 COMPARISON: None HISTORY: cough, SOB CT DLP: 686.[address] of the chest was performed with lung and mediastinal window settings submitted. The la ck of contrast limits evaluation of the vascular, mediastinal and parenchymal structures including th e upper abdomen. LUNGS: Mild upper lobe emphysematous change. The lungs are clear and free of infiltrate. No atelectas is. No pulmonary nodule or mass is detected. No pleural effusion. No CT evidence of interstitial l pineda disease. MEDIASTINUM/ELEANOR: Thoracic aorta is of normal caliber with limited evaluation given lack of contrast . The heart is enlarged. Pulmonary venous congestion with interstitial edema. No evidence for media stinal mass. No lymph nodes greater than 1cm. UPPER ABDOMEN: No significant abnormality is seen. OTHER: No significant other abnormality. IMPRESSION: 1. Is evidence of cardiomegaly with pulmonary venous congestion. Interstitial edema difficult to exc lude. Motion artifact limits evaluation. Correlate clinically.
[2022-11-20] MEDS: QUEtiapine 25 MG TAB PO SCH (17:10)
[2022-11-20] MEDS ORDERED: WARFARIN 5 MG TAB PO ONE (18:00)
[2022-11-20] MEDS ORDERED: QUEtiapine 25 MG TAB PO SCH (21:00)
[2022-11-20] MEDS ORDERED: FAMOTIDINE 20 MG/2 ML VIAL IV SCH (21:00)
[2022-11-20] MEDS ORDERED: WARFARIN 2.5 MG TAB PO SCH (21:00)
[2022-11-20] MEDS: FAMOTIDINE 20 MG TAB PO SCH (21:49)
--- NOTE | 2022-11-20 22:51 | EEG ---
ELECTROENCEPHALOGRAM REPORT CLINICAL HISTORY: This is a 77-year-old gentleman with altered mental status and hallucination. The video EEG is obtained to evaluate for seizure epileptiform activity. RELEVANT MEDICATION: The patient is not on any antiepileptic drugs. EEG TYPE: A routine 21-channel EEG is performed with video using the 10/20 electrode placement system. DESCRIPTION: Wakefulness is only obtained. During awake state, the background consists of 7 to 8 hertz activity that is well modulated, well sustained. At times, the background consists of diffuse nonrhythmic delta activity. There was no physiological stage 2 sleep architecture seen. There is no focal slowing. Interictal and ictal is none. ACTIVATION PROCEDURE: Photic stimulation and hyperventilation are not performed. CLINICAL INTERPRETATION: This is an abnormal routine EEG. The background slowing is suggestive of mild-to- moderate encephalopathy. Otherwise, there is no focal slowing, epileptiform discharges, or seizure on the EEG. Clinical correlation is recommended. MMMICHELE / IJBalaji: [id number] /
[2022-11-21] MEDS: QUEtiapine 25 MG TAB PO SCH ×3 (05:55→20:21)
[2022-11-21] MEDS: IPRATROPIUM-ALBUTEROL 3 ML NEB INHALATION PRN ×3 (07:24→20:14)
[2022-11-21 08:09] LABS: Prothrombin Time 19.2 sec (9.0-12.0)
[2022-11-21] MEDS: GABAPENTIN 300 MG CAP PO SCH ×2 (09:17→20:22)
[2022-11-21] MEDS: METOPROLOL TARTRATE 25 MG TAB PO SCH ×2 (09:17→20:21)
[2022-11-21] MEDS: FAMOTIDINE 20 MG TAB PO SCH ×2 (09:18→20:21)
[2022-11-21 11:26] LABS: Magnesium 2.1 mg/dL (1.5-2.4)
[2022-11-21 11:30] LABS: ALT 16 U/L (10-49); AST 56 U/L (14-35); African American GFR (CKD) 89.9 (60.0-200.0); Albumin 4.1 g/dL (3.8-4.9); Albumin/Globulin Ratio 1.71 (1.60-3.17); Alkaline Phosphatase 50 U/L (41-126); BUN/Creat Ratio 12.77 Ratio (12.00-20.00); Bilirubin, Conjugated <0.20 mg/dL (0.20-0.40); Blood Urea Nitrogen 11.9 mg/dL (9.0-27.0); Calcium 8.9 mg/dL (8.7-10.3); Carbon Dioxide 24.9 mmol/L (20.0-27.5); Chloride 96 mmol/L (96-109); Globulin 2.4 g/dL (1.6-3.3); Glucose 122 mg/dL (70-110); Non-African American GFR(CKD) 77.6 (60.0-200.0); Potassium 4.6 mmol/L (3.5-5.5); Sodium 134 mmol/L (135-145); Total Protein 6.5 g/dL (6.2-8.2)
--- NOTE | 2022-11-21 11:49 | P.PN ---
Subjective Progress Note Date: 11/21/22 The patient is seen at bedside and has a sitter at side. Per the sitter he was agitated earlier and had to be given Seroquel. Objective - Vital Signs Vital signs: Vital Signs Temp 98.1 F 11/21/22 08:45 Pulse 82 11/21/22 08:45 Resp 18 11/21/22 08:45 BP 163/89 11/21/22 08:45 Pulse Ox 96 11/21/22 08:45 FiO2 Intake & Output 11/20/22 11/21/22 11/21/22 18:59 06:59 18:59 Output Total 1500 Balance -1500 Output: Urine 1500 Other: Voiding Method Urinal Urinal Urinal Incontinent Incontinent Diaper Incontinent # Voids 10 4 - Exam GENERAL: The patient is laying in bed and does not seem in acute distress. NEUROLOGICAL: Higher mental function: The patient is drowsy but is briefly awakeable to voice, Is oriented to self. He is slow responding to questions. He talks nonsensical. No neglect. Cranial nerves: The pupils are round, equal and reactive to light. Visual gaxiola is hard to assess because of cooperation. No facial weakness. No dysarthria. Rest is limited because of cooperation. Motor: The strength is hard to assess individual muscle strength but lifting all extremities above gravity. Normal tone and bulk. Cerebellum: Normal finger to nose bilaterally. Sensation: Unable to assess because of cooperation. Reflexes (right/left): 1+ throughout. Plantars are mute bilaterally. Some of the workup during his hospital visit consisted of: CBC with differential on chemistry panel seems unremarkable. Ammonia is less than 9 Folate is 6.10 (normal is 4.4-31) Vitamin B12: 427 TSH is 2.060 Urinalysis seems -40 neuro-tract infection Urine drug screen is nondetected Camejo virus PCR as well as influenza A/P is not detected. CT of the head is reported as no acute intercranial hemorrhage or midline shift. There is mild to moderate diffuse cerebral atrophy read demonstrate. No significant change from prior CT. I personally reviewed the CT and there is no acute subacute ischemia there is no intraperitoneal hemorrhage or mass effect. Routine EEG: It is abnormal. The background slowing is suggestive of mild to moderate encephalopathy. Otherwise, there is no focal slowing, epileptiform discharges or seizure on the EEG. - Labs CBC & Chem 7: 11/19/22 19:02 11/21/22 06:51 Labs: Abnormal Lab Results - Last 24 Hours (Table) 11/20/22 11/21/22 11/21/22 Range/Units 06:13 06:51 06:51 PT 15.5 H 19.2 H (9.9-11.9) sec INR 1.39 H 2.0 H (0.90-1.11) Sodium 134 L (135-145) mmol/L Glucose 122 H (70-110) mg/dL Conjugated Bilirubin <0.20 L (0.20-0.40) mg/dL AST 56 H (14-35) U/L Microbiology - Last 24 Hours (Table) 11/20/22 06:13 Blood Culture - Preliminary Blood No Growth after 24 hours 11/20/22 06:13 Blood Culture - Preliminary Blood No Growth after 24 hours Assessment and Plan Assessment: Altered mental status with visual and auditory hallucinations for the past couple days. I believe patient has underlying dementia/neurodegenerative disease On Coumadin but INR subtherapeutic unsure if patient has history of A. fib Low normal folate History of cardiac ablation History of coronary artery disease Plan: Started the patient folic acid 1mg daily since has low normal level. Recommend MRI Brain as outpatient for his underlying dementia. Unless family feels he is drastically worse and so therefore can consider MRI Brain as inpatient. Q4 hour neuro checks. I stopped Ativan PRN since benzo can worsening patient confusion in elderly patient. On Seroquel 25mg 1 tab bid. If needed can increase night dose to 50mg for agitation. Regarding Coumadin and cardiac management will defer to primary team. Will defer the rest of medical management to primary team. Recommend patient to follow-up with neurologist as outpatient within 1-2 weeks. The plan is discussed with patient's primary team. Time with Patient: Less than 30
[2022-11-21] MEDS: FOLIC ACID 1 MG TAB PO SCH (12:37)
[2022-11-21 13:12] LABS: Basophils # (A) 0.03 X 10*3/uL (0.00-0.10); Basophils % (A) 0.4 %; Eosinophils # (A) 0.01 X 10*3/uL (0.04-0.35); Eosinophils % (A) 0.1 %; HCT 46.3 % (39.6-50.0); HGB 15.7 g/dL (13.0-17.0); Immature Grans, Automated 0.3 %; Lymphocytes # (A) 0.65 X 10*3/uL (0.90-5.00); Lymphocytes % (A) 9.4 %; MCH 31.4 pg (27.0-32.0); MCHC 33.9 g/dL (32.0-37.0); MCV 92.6 fL (80.0-97.0); Mean Platelet Volume 11.1 fL (9.5-12.2); Monocytes # (A) 0.74 X 10*3/uL (0.20-1.00); Monocytes % (A) 10.7 %; NRBC Per 100 WBC 0 /100 WBCS (0.0-0.0); Neutrophils # (A) 5.47 X 10*3/uL (1.80-7.70); Neutrophils % (A) 79.1 %; Platelet Count 131 X 10*3/uL (140-440); RDW 12.9 % (11.5-14.5); WBC 6.92 X 10*3/uL (4.50-10.00)
[2022-11-21] MEDS ORDERED: SCOPOLAMINE 1 MG/72 HR PATCH TRANSDERM STA (16:45)
[2022-11-21 17:33] LABS: Appearance,Urine Clear (Clear); Bilirubin,Urine Negative (Negative); Blood,Urine Large (Negative); Color,Urine Yellow; Glucose,Urine (UA) Negative (Negative); Ketones,Urine 1+ (Negative); Leukocyte Esterase,Urine Negative (Negative); Mucus,Urine Few /hpf; Nitrite,Urine Negative (Negative); PH, Urine 5.5 (5.0-8.0); Protein,Urine 1+ (Negative); RBC,Urine 164 /hpf (0-5); Specific Gravity,Urine 1.026 (1.001-1.035); Urobilinogen,Urine <2.0 mg/dL (<2.0); WBC,Urine 1 /hpf (0-5)
[2022-11-21] MEDS ORDERED: ACETAMINOPHEN SUPPOSITORY 650 MG SUPP RECTAL STA (17:48)
[2022-11-21] MEDS ORDERED: FUROSEMIDE 10 MG/ML 2 ML VIAL IV ONE (17:49)
[2022-11-21] MEDS ORDERED: hydrALAZINE HCL 20 MG/ML 1 ML VIAL IVP PRN (17:49)
--- NOTE | 2022-11-21 17:50 | XR ---
EXAMINATION TYPE: XR chest 1V portable DATE OF EXAM: 11/21/2022 COMPARISON: 11/20/2022 INDICATION: No productive cough and low-grade fever TECHNIQUE: Single frontal view of the chest is obtained. FINDINGS: The heart size is normal. The pulmonary vasculature is prominent. Minimal infiltrate at the left base. Correlate for atelectasis Pacemaker overlies left chest. IMPRESSION: 1. Minimal subsegmental atelectasis left base. 2. Prominent pulmonary vascular markings. Correlate for developing volume overload
[2022-11-21] MEDS: ACETAMINOPHEN TAB 325 MG TAB PO PRN (17:55)
[2022-11-21] MEDS ORDERED: WARFARIN 2.5 MG TAB PO ONE (18:00)
[2022-11-21] MEDS: traZODone HCL 100 MG TAB PO SCH (20:21)
[2022-11-21] MEDS: FUROSEMIDE 10 MG/ML 2 ML VIAL IV SCH (20:21)
[2022-11-21] MEDS: PIPERACILLIN-TAZOBACTAM 3.375 GM in SODIUM CHLORIDE 0.9% 100 ML IVPB SCH (20:22)
--- NOTE | 2022-11-22 04:06 | P.PN ---
Subjective Is a pleasant 77 years old male with multiple medical problems as below Patient presents because of confusion and nonproductive cough. Patient somewhat is poor historian. History is oriented to time place and person, he thinks is 1999 and he could not tell the place or remember the name of the president, also he does not know why here in the hospital however he follows simple commands. He looks a little bit agitated he keeps trying to hold the side rail of the bed. However patient states that his breathing is shallow, also is been complaining of from some coughing but no chest pain, he denies any GI or urinary complaints, no abdominal pain or vomiting or diarrhea, no urgency or hesitancy. No headache weakness or numbness On admission he was hypertensive with blood pressure 198/102, currently blood pressure 169/82, patient is afebrile. He is saturating 9200% on room air. unremarkable cbc Exit for low platelet 121, INR is 1.4. BMP and liver enzymes were unremarkable. TSH normal 2.0. Ammonia less than 9. Urine analysis is not suspicious for infection Urine drug screen is negative. Tylenol and serum alcohol and salicylates are negative. viruses t are not detected including influenza and coronavirus CT of the brain: No acute abnormality Chest x-ray: Cardiomegaly with bibasilar acute infiltrates and/or atelectasis. EKG showing ventricular paced rhythm On admission patient received Haldol and Zithromax and ceftriaxone However repeat chest x-ray reported by radiologist as resolution of the infiltrate. I reviewed the chest x-rays by myself and looks hyperinflation suspicious for COPD. 11/21/2020 Patient was more calm and comfortable in the morning however still confused. Patient did not complain from symptoms, no chest pain or dyspnea or completely in the morning. Discussed the case with neurology team. No new complaints His vitals were stable. Later on a developed low-grade temperature. Also he was saturating 96% on room air and oriented however got worse later this afternoon. Repeat chest x-ray showed possible left lower lobe atelectasis, however pneumonia cannot be exclude, also there was vascular congestion, also blood pressure was noticed to be elevated therefore patient was started on IV Lasix twice daily. I discussed the case with his daughter and all questions answered to satisfaction. There was concerns about secretions, suction was done. Also we'll consult cardiology the morning, also patient pacemaker the cardia. INR is at 2.0, discussed with the daughter sweetie about reason for his Coumadin, she states he was taken.g it for a long time. We'll start the patient on IV Zosyn for possible aspiration pneumonia, we will check so later evaluations were divided, patient earlier could not swallow his pills. Also he is on IV Lasix. Objective - Vital Signs Vital signs: Vital Signs Temp 98.1 F 11/21/22 08:45 Pulse 64 11/21/22 11:59 Resp 18 11/21/22 08:45 BP 163/89 11/21/22 08:45 Pulse Ox 96 11/21/22 13:48 FiO2 Intake & Output 11/20/22 11/21/22 11/21/22 18:59 06:59 18:59 Output Total 1500 Balance -1500 Output: Urine 1500 Other: Voiding Method Urinal Urinal Urinal Incontinent Incontinent Diaper Incontinent # Voids 10 4 - Exam -GENERAL: The patient is alert, awake looks more, but still confused, follows s imple commands, not in any acute distress. Well developed, well nourished. HEENT: Pupils are round and equally reacting to light. EOMI. No scleral icterus. No conjunctival pallor. Normocephalic, atraumatic. No pharyngeal erythema. No thyromegaly. CARDIOVASCULAR: S1 and S2 present. No murmurs, rubs, or gallops. PULMONARY: Chest is clear to auscultation, no wheezing or crackles. ABDOMEN: Soft, nontender, nondistended, normoactive bowel sounds. No palpable organomegaly. MUSCULOSKELETAL: No joint swelling or deformity. EXTREMITIES: No cyanosis, clubbing, or pedal edema. NEUROLOGICAL: Gross neurological examination did not reveal any focal deficits. SKIN: No rashes. no petechiae. - Labs CBC & Chem 7: 11/21/22 06:51 11/21/22 06:51 Labs: Abnormal Lab Results - Last 24 Hours (Table) 11/21/22 11/21/22 11/21/22 Range/Units 06:51 06:51 06:51 Plt Count 131 L (140-440) X 10*3/uL Lymphocytes # 0.65 L (0.90-5.00) X 10*3/uL Eosinophils # 0.01 L (0.04-0.35) X 10*3/uL PT 19.2 H (9.0-12.0) sec INR 2.0 H (<1.2) Sodium 134 L (135-145) mmol/L Glucose 122 H (70-110) mg/dL Conjugated Bilirubin <0.20 L (0.20-0.40) mg/dL AST 56 H (14-35) U/L Microbiology - Last 24 Hours (Table) 11/20/22 06:13 Blood Culture - Preliminary Blood No Growth after 24 hours 11/20/22 06:13 Blood Culture - Preliminary Blood No Growth after 24 hours Assessment and Plan Assessment: Altered mental status , mostly metabolic encephalopathy patient with possible aspiration pneumonia, Vascular congestion, possible acute CHF, ejection fraction Possible mild COPD exacerbation mild thrombocytopenia on admission Hypertension Hyperlipidemia History of osteoarthritis History of syncope History of benign prostatic hypertrophy History of bradycardia History of chronic back pain with right side sciatica Plan: Continue with Antibiotics. Zosyn Continue with IV Lasix Monitor INR Cardiology consult Send blood culture and sputum culture priorcalcitonin Continue with breathing treatment and/or oxygen as needed neurology consult Labs and medication were reviewed.. Continue same treatment. Continue with symptomatic treatment. Resume home medication. Monitor labs and vitals. DVT and GI prophylaxis. Further recommendations as per clinical course of the pat ient DVT prophylaxis: On Coumadin GI Prophylaxis: Pepcid PT/OT: Pending Prognosis is guarded
[2022-11-22 06:29] LABS: INR 2.2 (<1.2); Prothrombin Time 21.8 sec (9.0-12.0)
[2022-11-22] MEDS: PIPERACILLIN-TAZOBACTAM 3.375 GM in SODIUM CHLORIDE 0.9% 100 ML IVPB SCH ×3 (07:47→21:26)
[2022-11-22 08:05] LABS: Basophils % (A) 0 %; Eosinophils % (A) 0 %; HCT 44.3 % (39.0-53.0); HGB 15.2 gm/dL (13.0-17.5); Lymphocytes # (A) 0.7 k/uL (1.0-4.8); Lymphocytes % (A) 9 %; MCH 31.5 pg (25.0-35.0); MCHC 34.3 g/dL (31.0-37.0); MCV 91.8 fL (80.0-100.0); Monocytes # (A) 0.9 k/uL (0-1.0); Monocytes % (A) 10 %; Neutrophils # (A) 6.7 k/uL (1.3-7.7); Neutrophils % (A) 79 %; Platelet Count 126 k/uL (150-450); RBC 4.82 m/uL (4.30-5.90); RDW 12.6 % (11.5-15.5); WBC 8.5 k/uL (3.8-10.6)
[2022-11-22 08:06] LABS: African American GFR (CKD) 74 (>60 ml/min/1.73 sqM); Anion Gap 10 mmol/L; Blood Urea Nitrogen 24 mg/dL (9-20); Calcium 8.2 mg/dL (8.4-10.2); Carbon Dioxide 27 mmol/L (22-30); Chloride 98 mmol/L (98-107); Glucose 145 mg/dL (74-99); Non-African American GFR(CKD) 64 (>60 ml/min/1.73 sqM); Potassium 3.7 mmol/L (3.5-5.1); Sodium 135 mmol/L (137-145)
[2022-11-22] MEDS: GABAPENTIN 300 MG CAP PO SCH ×2 (09:04→21:26)
[2022-11-22] MEDS: QUEtiapine 25 MG TAB PO SCH ×2 (09:04→21:26)
[2022-11-22] MEDS: FOLIC ACID 1 MG TAB PO SCH (09:04)
[2022-11-22] MEDS: FLUDROCORTISONE 0.1 MG TAB PO SCH (09:04)
[2022-11-22] MEDS: FUROSEMIDE 10 MG/ML 2 ML VIAL IV SCH ×2 (09:04→21:26)
[2022-11-22] MEDS: FAMOTIDINE 20 MG TAB PO SCH ×2 (09:04→21:26)
[2022-11-22] MEDS: METOPROLOL TARTRATE 25 MG TAB PO SCH ×2 (09:04→21:26)
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
--- NOTE | 2022-11-22 13:45 | P.PN ---
Subjective Progress Note Date: 11/22/22 The patient seen at bedside and he is accompanied by his son and grandson. According to the son and he feels a slightly doing better today compared to yesterday and seems somewhat more responsive according to the son. Objective - Vital Signs Vital signs: Vital Signs Temp 97.6 F 11/22/22 06:30 Pulse 70 11/22/22 06:30 Resp 21 11/22/22 06:30 BP 116/76 11/22/22 06:30 Pulse Ox 94 L 11/22/22 13:15 FiO2 Intake & Output 11/21/22 11/22/22 11/22/22 18:59 06:59 18:59 Intake Total 100 Balance 100 Intake: Intake, IV Titration 100 Amount Piperacillin-Tazobactam 3 100 .375 gm In Sodium Chloride 0.9% 100 ml @ 25 mls/hr IVPB Q8H [facility] Rx#: [id number] Other: Voiding Method Urinal Urinal External Catheter Diaper Diaper Incontinent Incontinent # Voids 2 1 - Exam GENERAL: The patient is laying in bed and does not seem in acute distress. NEUROLOGICAL: Higher mental function: The patient is drowsy but is briefly awakeable to voice, Is oriented to self. He stated he was in the hospital yesterday but not today. He could not tell me current year or place. He talks nonsensical at time. No neglect. Cranial nerves: The pupils are round, equal and reactive to light. Visual gaxiola is hard to assess because of cooperation. No facial weakness. No dysarthria. Rest is limited because of cooperation. Motor: The strength is hard to assess individual muscle strength but lifting all extremities above gravity. Normal tone and bulk. Cerebellum: Normal finger to nose bilaterally. Sensation: Unable to assess because of cooperation. Reflexes (right/left): 1+ throughout. Plantars are mute bilaterally. Some of the workup during his hospital visit consisted of: CBC with differential on chemistry panel seems unremarkable. Ammonia is less than 9 Folate is 6.10 (normal is 4.4-31) Vitamin B12: 427 TSH is 2.060 Urinalysis seems -40 neuro-tract infection Urine drug screen is nondetected Camejo virus PCR as well as influenza A/P is not detected. CT of the head is reported as no acute intercranial hemorrhage or midline shift. There is mild to moderate diffuse cerebral atrophy read demonstrate. No significant change from prior CT. I personally reviewed the CT and there is no acute subacute ischemia there is no intraperitoneal hemorrhage or mass effect. Routine EEG: It is abnormal. The background slowing is suggestive of mild to moderate encephalopathy. Otherwise, there is no focal slowing, epileptiform discharges or seizure on the EEG. - Labs CBC & Chem 7: 11/22/22 05:46 11/22/22 05:46 Labs: Abnormal Lab Results - Last 24 Hours (Table) 11/21/22 11/22/22 11/22/22 Range/Units 16:55 05:46 05:46 Plt Count 126 L (150-450) k/uL Lymphocytes # 0.7 L (1.0-4.8) k/uL PT 21.8 H (9.0-12.0) sec INR 2.2 H (<1.2) Sodium (137-145) mmol/L BUN (9-20) mg/dL Glucose (74-99) mg/dL Calcium (8.4-10.2) mg/dL Urine Protein 1+ H (Negative) Urine Ketones 1+ H (Negative) Urine Blood Large H (Negative) Urine RBC 164 H (0-5) /hpf Urine Mucus Few H (None) /hpf 11/22/22 Range/Units 05:46 Plt Count (150-450) k/uL Lymphocytes # (1.0-4.8) k/uL PT (9.0-12.0) sec INR (<1.2) Sodium 135 L (137-145) mmol/L BUN 24 H (9-20) mg/dL Glucose 145 H (74-99) mg/dL Calcium 8.2 L (8.4-10.2) mg/dL Urine Protein (Negative) Urine Ketones (Negative) Urine Blood (Negative) Urine RBC (0-5) /hpf Urine Mucus (None) /hpf Microbiology - Last 24 Hours (Table) 11/20/22 06:13 Blood Culture - Preliminary Blood No Growth after 48 hours 11/20/22 06:13 Blood Culture - Preliminary Blood No Growth after 48 hours Assessment and Plan Assessment: Altered mental status with visual and auditory hallucinations for the past couple days. I believe patient has underlying dementia/neurodegenerative disease On Coumadin but INR subtherapeutic unsure if patient has history of A. fib Low normal folate History of cardiac ablation History of coronary artery disease Plan: Started the patient folic acid 1mg daily since has low normal level. Recommend MRI Brain as outpatient for his underlying dementia. Q4 hour neuro checks. I stopped Ativan PRN since benzo can worsening patient confusion in elderly patient. On Seroquel 25mg 1 tab bid. If needed can increase night dose to 50mg for agitation. Regarding Coumadin and cardiac management will defer to primary team. Will defer the rest of medical management to primary team. Recommend patient to follow-up with neurologist as outpatient within 1-2 weeks. The plan is discussed with patient's son who is at bedside and feels doing better today compared to yesterday. There is no additional neurological work-up. Please notify neurology team if any further concerns. Time with Patient: Less than 30
[2022-11-22] MEDS ORDERED: WARFARIN 2.5 MG TAB PO ONE (18:00)
[2022-11-22] MEDS ORDERED: WARFARIN 2.5 MG TAB PO SCH (21:00)
[2022-11-22] MEDS: traZODone HCL 100 MG TAB PO SCH (21:26)
[2022-11-23] MEDS: PIPERACILLIN-TAZOBACTAM 3.375 GM in SODIUM CHLORIDE 0.9% 100 ML IVPB SCH ×2 (04:31→12:52)
[2022-11-23 08:07] LABS: INR 2.6 (<1.2)
[2022-11-23] MEDS: QUEtiapine 25 MG TAB PO SCH ×2 (08:15→21:18)
[2022-11-23] MEDS: METOPROLOL TARTRATE 25 MG TAB PO SCH ×2 (08:15→21:18)
[2022-11-23] MEDS: GABAPENTIN 300 MG CAP PO SCH ×2 (08:15→21:18)
[2022-11-23] MEDS: FUROSEMIDE 10 MG/ML 2 ML VIAL IV SCH ×2 (08:16→21:18)
[2022-11-23] MEDS: FAMOTIDINE 20 MG TAB PO SCH ×2 (08:16→21:18)
[2022-11-23] MEDS: FOLIC ACID 1 MG TAB PO SCH (08:16)
--- NOTE | 2022-11-23 11:11 | P.PN ---
Subjective Progress Note Date: 11/23/22 History of present illness: This is a 77-year-old male with past medical history of paroxysmal atrial fibr illation on Coumadin, sick sinus syndrome status post permanent pacemaker implantation, orthostatic hypotension with hypertension, coronary artery disease mild with most recent testing showing no evidence of ischemia, peripheral vascular disease on Pletal, hyperlipidemia, remote history of smoking. We have been asked to evaluate the patient for possible heart failure and pacemaker. Patient has been brought in the hospital due to encephalopathy and nonproductive cough and treated for aspiration pneumonia. We've been asked to see the patient due to possible congestive heart failure and pacemaker. Patient remains confused and unable to provide any information. Patient's son is at the bedside and states that patient has had confusion has been worsening over the past couple of months. He does not recall her complaining of chest pain or shortness of breath prior to coming into the hospital. Patient has been started on Lasix 20 mg IV twice daily. EKG ventricular paced rhythm Chest x-ray reveals minimal subsegmental atelectasis left base. Prominent pulmonary vascular markings. Correlate for developing volume overload CT of the chest revealed evidence of cardiomegaly with pulmonary venous congestion. Interstitial edema difficult to exclude. Motion artifact limits evaluation. WBC 8.5, hemoglobin 15.2, platelet count 126. INR 2.2. BUN is 24 creatinine 1.09. ProBNP 1240. Troponin 0.2. TSH 2.06. Home cardiac medications: Aspirin 81 mg daily, Pletal 100 mg twice daily, Lopr essor 25 mg twice daily, Crestor 20 mg at bedtime, warfarin alternating dose daily, also on Florinef 0.05 mg on Friday Carotid ultrasound 05/2022: Bilateral 1649 % stenosis and unchanged from previous exam Lexiscan Cardiolite stress test 05/2021 was negative Echocardiogram 05/2020 reveals normal LV size and function. Mild mitral regurgitation. 11/23 Patient is seen today in follow-up. He denies having chest pain, unclear if he is having shortness of breath. Patient remains quite confused and unable to give reliable information. Patient's son is at the bedside. He has been continued on IV Lasix 20 mg every 12 hours. Patient is on oxygen 2 L nasal cannula with pulse ox of 94%, heart rate in the 70s and blood pressure 145/90. Echocardiogram report is pending Physical examination: Gen: This is a 77-year-old male. He sitting up in bed and appears. In no acute distress. VS: reviewed HEENT: Head is atraumatic, normocephalic. Pupils equal, round. Sclerae is anicteric. NECK: Supple. No JVD. No lymphadenopathy. No thyromegaly. LUNGS: Bilat rhonchi. No intercostal retractions. HEART: Regular rate and rhythm. No murmur. ABDOMEN: Soft. Bowel sounds are present. No masses. No tenderness. EXTREMITIES: No pedal edema. No calf tenderness. NEUROLOGICAL: Patient is awake, confused. Assessment: Metabolic encephalopathy Possible acute diastolic heart failure Hypertension Paroxysmal atrial fibrillation on Coumadin Sick sinus syndrome status post permanent pacemaker implantation Orthostatic hypotension with hypertension Mild coronary artery disease Peripheral vascular disease Hyperlipidemia Plan: Recommend continuing Lasix at 20 mg IV every 12 hours Continue Lopressor 25 mg twice daily and continue Coumadin, pharmacy dosing Obtain 2-D echocardiogram and Doppler study to assess cardiac structure and function Further recommendations to follow based upon clinical course Thank you kindly for this consultation. Nurse practitioner note has been reviewed, I agree with documented findings and plan of care. Patient was seen and examined. Objective - Vital Signs Vital signs: Vital Signs Temp 97.3 F L 11/23/22 08:00 Pulse 71 11/23/22 08:19 Resp 17 11/23/22 08:19 BP 145/90 11/23/22 08:00 Pulse Ox 94 L 11/23/22 08:29 FiO2 Intake & Output 11/22/22 11/23/22 11/23/22 18:59 06:59 18:59 Intake Total 500 Output Total 300 Balance 200 Intake: Intake, IV Titration 200 Amount Piperacillin-Tazobactam 3 200 .375 gm In Sodium Chloride 0.9% 100 ml @ 25 mls/hr IVPB Q8H [facility] Rx#: [id number] Oral 300 Output: Urine 300 Other: Voiding Method External Catheter External Catheter Urinal Incontinent External Catheter - Labs CBC & Chem 7: 11/22/22 05:46 11/22/22 05:46 Labs: Abnormal Lab Results - Last 24 Hours (Table) 11/23/22 Range/Units 07:10 PT 25.0 H (9.0-12.0) sec INR 2.6 H (<1.2) Microbiology - Last 24 Hours (Table) 11/20/22 06:13 Blood Culture - Preliminary Blood No Growth after 72 hours 11/20/22 06:13 Blood Culture - Preliminary Blood No Growth after 72 hours
--- NOTE | 2022-11-23 11:39 | CA ---
Transthoracic Echo Report Name: Armond Rosario Age: 77 Gender: M : 1945 Exam Date: 11/23/2022 09:29 Exam Location: [place] [facility] Ht (in): 72 Wt (lb): 205 Ordering Physician: Michelle Mata Attending/Referring Phys: Framing Carpenter Melissa Aldana RDCS Procedure CPT: Indications: LVF Cardiac Hx: Technical Quality: Fair Contrast 1: Total Dose (mL): Contrast 2: Total Dose (mL): MEASUREMENTS (Male / Female) Normal Values 2D ECHO LV Diastolic Diameter PLAX 4.7 cm 4.2 - 5.9 / 3.9 - 5.3 cm LV Systolic Diameter PLAX 3.5 cm IVS Diastolic Thickness 1.5 cm 0.6 - 1.0 / 0.6 - 0.9 cm LVPW Diastolic Thickness 1.4 cm 0.6 - 1.0 / 0.6 - 0.9 cm LV Relative Wall Thickness 0.6 RV Internal Dim ED PLAX 2.9 cm LA Volume 77.3 cm??? 18 - 58 / 22 - 52 cm??? M-MODE Aortic Root Diameter MM 3.1 cm LA Systolic Diameter MM 5.0 cm LA Ao Ratio MM 1.6 AV Cusp Separation MM 2.4 cm DOPPLER AV Peak Velocity 105.3 cm/s AV Peak Gradient 4.4 mmHg MV Area PHT 2.9 cm??? Mitral E Point Velocity 76.0 cm/s Mitral A Point Velocity 24.1 cm/s Mitral E to A Ratio 3.1 MV Deceleration Time 257.9 ms MV E' Velocity 6.7 cm/s Mitral E to MV E' Ratio 11.3 TR Peak Velocity 242.4 cm/s TR Peak Gradient 23.5 mmHg Right Ventricular Systolic Press 28.5 mmHg FINDINGS Left Ventricle Moderately increased septal wall thickness. Normal left ventricular systolic function with no obvious regional wall motion abnormalities. Left ventricular ejection fraction is estimated at 55 %. Right Ventricle Normal right ventricular size and function. Right ventricular systolic pressure within normal limits. Right Atrium Normal right atrial size. Catheter/pacemaker wire in the right atrial cavity. Left Atrium Moderately increased left atrial volume. Mildly increased left atrial area. Mitral Valve Structurally normal mitral valve. Mild mitral annular calcification. Mild mitral regurgitation. Aortic Valve No aortic stenosis. Trace aortic regurgitation. Tricuspid Valve Mild tricuspid regurgitation. Pulmonic Valve Trace pulmonic regurgitation. Pericardium No pericardial effusion. Aorta Normal size aortic root and proximal ascending aorta. CONCLUSIONS Normal LV systolic function Mild mitral regurgitation Previewed by: Dr. Jerel Mayorga MD (Electronically Signed) Final Date: 23 November 2022 11:39
[2022-11-23 12:19] LABS: Basophils # (A) 0.03 X 10*3/uL (0.00-0.10); Basophils % (A) 0.5 %; Eosinophils # (A) 0.02 X 10*3/uL (0.04-0.35); Eosinophils % (A) 0.3 %; HCT 45.9 % (39.6-50.0); HGB 15.3 g/dL (13.0-17.0); Immature Grans, Automated 0.3 %; Lymphocytes # (A) 1.07 X 10*3/uL (0.90-5.00); Lymphocytes % (A) 16.4 %; MCHC 33.3 g/dL (32.0-37.0); MCV 93.1 fL (80.0-97.0); Mean Platelet Volume 11.2 fL (9.5-12.2); Monocytes # (A) 0.83 X 10*3/uL (0.20-1.00); Monocytes % (A) 12.7 %; NRBC Per 100 WBC 0 /100 WBCS (0.0-0.0); Neutrophils # (A) 4.57 X 10*3/uL (1.80-7.70); Neutrophils % (A) 69.8 %; Platelet Count 137 X 10*3/uL (140-440); RBC 4.93 X 10*6/uL (4.40-5.60); RDW 12.8 % (11.5-14.5); WBC 6.54 X 10*3/uL (4.50-10.00)
[2022-11-23 12:29] LABS: African American GFR (CKD) 73.6 (60.0-200.0); BUN/Creat Ratio 20.27 Ratio (12.00-20.00); Blood Urea Nitrogen 22.3 mg/dL (9.0-27.0); Calcium 8.9 mg/dL (8.7-10.3); Non-African American GFR(CKD) 63.5 (60.0-200.0); Potassium 3.5 mmol/L (3.5-5.5)
[2022-11-23] MEDS: AMPICILLIN-SULBACTAM 3 GM in SODIUM CHLORIDE 0.9% 100 ML IVPB SCH ×2 (17:19→23:54)
[2022-11-23] MEDS ORDERED: WARFARIN 2 MG TAB PO ONE (18:00)
[2022-11-23] MEDS: traZODone HCL 100 MG TAB PO SCH (21:18)
[2022-11-24 05:21] LABS: INR 3.4 (<1.2); Prothrombin Time 33.3 sec (9.0-12.0)
[2022-11-24] MEDS: AMPICILLIN-SULBACTAM 3 GM in SODIUM CHLORIDE 0.9% 100 ML IVPB SCH ×3 (05:38→17:02)
[2022-11-24] MEDS: FUROSEMIDE 10 MG/ML 2 ML VIAL IV SCH ×2 (09:13→20:27)
[2022-11-24] MEDS: METOPROLOL TARTRATE 25 MG TAB PO SCH ×2 (09:13→20:28)
[2022-11-24] MEDS: FOLIC ACID 1 MG TAB PO SCH (09:13)
[2022-11-24] MEDS: FAMOTIDINE 20 MG TAB PO SCH ×2 (09:13→20:28)
[2022-11-24] MEDS: GABAPENTIN 300 MG CAP PO SCH ×2 (09:13→20:27)
[2022-11-24 09:34] LABS: Basophils # (A) 0.03 X 10*3/uL (0.00-0.10); Basophils % (A) 0.5 %; Eosinophils # (A) 0.02 X 10*3/uL (0.04-0.35); Eosinophils % (A) 0.3 %; HGB 15.1 g/dL (13.0-17.0); Immature Grans, Automated 0.3 %; Lymphocytes % (A) 20.4 %; MCH 30.4 pg (27.0-32.0); MCHC 32.8 g/dL (32.0-37.0); MCV 92.7 fL (80.0-97.0); Mean Platelet Volume 11.1 fL (9.5-12.2); Monocytes # (A) 0.76 X 10*3/uL (0.20-1.00); Monocytes % (A) 12.9 %; NRBC Per 100 WBC 0 /100 WBCS (0.0-0.0); Neutrophils # (A) 3.85 X 10*3/uL (1.80-7.70); Neutrophils % (A) 65.6 %; Platelet Count 142 X 10*3/uL (140-440); RBC 4.96 X 10*6/uL (4.40-5.60); RDW 12.5 % (11.5-14.5); WBC 5.88 X 10*3/uL (4.50-10.00)
[2022-11-24 09:37] LABS: African American GFR (CKD) 82.6 (60.0-200.0); Anion Gap 10.8 mmol/L (10.00-18.00); BUN/Creat Ratio 18.8 Ratio (12.00-20.00); Blood Urea Nitrogen 18.8 mg/dL (9.0-27.0); Calcium 8.7 mg/dL (8.7-10.3); Carbon Dioxide 33.2 mmol/L (20.0-27.5); Non-African American GFR(CKD) 71.3 (60.0-200.0); Potassium 3.4 mmol/L (3.5-5.5)
[2022-11-24] MEDS: POTASSIUM CHLORIDE ER 10 MEQ TAB.ER.PRT PO SCH (12:06)
[2022-11-24] MEDS ORDERED: WARFARIN 0.5 MG TAB PO ONE (18:00)
[2022-11-24] MEDS: traZODone HCL 100 MG TAB PO SCH (20:27)
[2022-11-24] MEDS: QUEtiapine 25 MG TAB PO SCH (20:28)
--- NOTE | 2022-11-24 21:58 | CONS ---
CONSULTATION HISTORY OF PRESENT ILLNESS: This is a 77-year-old gentleman who is admitted to hospital with confusional state. We were consulted because of his cardiac history. He is on Coumadin and INR today is 3.4. He remains confused, but is otherwise free of symptoms. Please maintain the INR between 2 to 2.5. PHYSICAL EXAMINATION: VITAL SIGNS: Stable. CHEST: Reveals good air entry bilaterally. HEART: Reveals first and second heart sounds. No gallop. EXTREMITIES: Did not reveal any edema. Peripheral pulses are palpable. ASSESSMENT AND PLAN: Metabolic encephalopathy, acute diastolic heart failure, paroxysmal atrial fibrillation, sick sinus syndrome, status post permanent pacemaker, orthostatic hypotension. Continue the patient on current medications. I reviewed echocardiogram from yesterday that showed normal LV systolic function with mild mitral regurgitation. MMTONAL / IJN: [id number] /
[2022-11-24] MEDS: QUEtiapine 25 MG TAB PO PRN (23:04)
[2022-11-24] MEDS: ACETAMINOPHEN TAB 325 MG TAB PO PRN (23:04)
--- NOTE | 2022-11-24 23:36 | P.PN ---
Subjective Progress Note Date: 11/22/22 Pt. is a pleasant 77 years old male with multiple medical problems as below Patient presents because of confusion and nonproductive cough. Patient somewhat is poor historian. History is oriented to time place and person, he thinks is 1999 and he could not tell the place or remember the name of the president, also he does not know why here in the hospital however he follows simple commands. He looks a little bit agitated he keeps trying to hold the side rail of the bed. However patient states that his breathing is shallow, also is been complaining of from some coughing but no chest pain, he denies any GI or urinary complaints, no abdominal pain or vomiting or diarrhea, no urgency or hesitancy. No headache weakness or numbness On admission he was hypertensive with blood pressure 198/102, currently blood pressure 169/82, patient is afebrile. He is saturating 9200% on room air. unremarkable cbc Exit for low platelet 121, INR is 1.4. BMP and liver enzymes were unremarkable. TSH normal 2.0. Ammonia less than 9. Urine analysis is not suspicious for infection Urine drug screen is negative. Tylenol and serum alcohol and salicylates are negative. viruses t are not detected including influenza and coronavirus CT of the brain: No acute abnormality Chest x-ray: Cardiomegaly with bibasilar acute infiltrates and/or atelectasis. EKG showing ventricular paced rhythm On admission patient received Haldol and Zithromax and ceftriaxone However repeat chest x-ray reported by radiologist as resolution of the infiltrate. I reviewed the chest x-rays by myself and looks hyperinflation suspicious for COPD. 11/21/2020 Patient was more calm and comfortable in the morning however still confused. P atama did not complain from symptoms, no chest pain or dyspnea or completely in the morning. Discussed the case with neurology team. No new complaints His vitals were stable. Later on a developed low-grade temperature. Also he was saturating 96% on room air and oriented however got worse later this afternoon. Repeat chest x-ray showed possible left lower lobe atelectasis, however pneumonia cannot be exclude, also there was vascular congestion, also blood pressure was noticed to be elevated therefore patient was started on IV Lasix twice daily. I discussed the case with his daughter and all questions answered to satisfaction. There was concerns about secretions, suction was done. Also we'll consult cardiology the morning, also patient pacemaker the cardia. INR is at 2.0, discussed with the daughter sweetie about reason for his Coumadin, she states he was taken.g it for a long time. We'll start the patient on IV Zosyn for possible aspiration pneumonia, we will check so later evaluations were divided, patient earlier could not swallow his pills. Also he is on IV Lasix. 11/22/2022 Patient is currently resting in the bed. Mentation is slightly better compared to yesterday. More responsive today. Patient has been afebrile. Currently on 2 L oxygen via nasal cannula.. No nausea vomiting, no abd Pain or diarrhea. Laboratory data showed WBC 8.4 hemoglobin 15.1 platelets 126 Sodium 133 potassium 3.7 chloride 98 bicarb is 27 BUN 24 and creatinine 1.09 and calcium 8.2. Blood cultures negative so far. Patient is being current on antibiotics and abdominal Zosyn. Also on Coumadin dosing and metoprolol. Current medications reviewed. Objective - Vital Signs Vital signs: Vital Signs Temp 98.6 F 11/22/22 19:44 Pulse 66 11/22/22 19:44 Resp 20 11/22/22 19:44 BP 113/73 11/22/22 19:44 Pulse Ox 93 L 11/22/22 19:44 FiO2 Intake & Output 11/22/22 11/22/22 11/23/22 06:59 18:59 06:59 Intake Total 100 Balance 100 Intake: Intake, IV Titration 100 Amount Piperacillin-Tazobactam 3 100 .375 gm In Sodium Chloride 0.9% 100 ml @ 25 mls/hr IVPB Q8H [facility] Rx#: [id number] Other: Voiding Method Urinal External Catheter Diaper Incontinent # Voids 1 - Exam - Exam -GENERAL: The patient is alert, awake looks more, but still confused, follows simple commands, not in any acute distress. Well developed, well nourished. HEENT: Pupils are round and equally reacting to light. EOMI. No scleral icterus. No conjunctival pallor. Normocephalic, atraumatic. No pharyngeal erythema. No thyromegaly. CARDIOVASCULAR: S1 and S2 present. No murmurs, rubs, or gallops. PULMONARY: Chest is clear to auscultation, no wheezing or crackles. ABDOMEN: Soft, nontender, nondistended, normoactive bowel sounds. No palpable organomegaly. MUSCULOSKELETAL: No joint swelling or deformity. EXTREMITIES: No cyanosis, clubbing, or pedal edema. NEUROLOGICAL: Gross neurological examination did not reveal any focal deficits. SKIN: No rashes. no petechiae. - Labs CBC & Chem 7: 11/24/22 04:24 11/24/22 04:24 Labs: Abnormal Lab Results - Last 24 Hours (Table) 11/22/22 11/22/22 11/22/22 Range/Units 05:46 05:46 05:46 Plt Count 126 L (150-450) k/uL Lymphocytes # 0.7 L (1.0-4.8) k/uL PT 21.8 H (9.0-12.0) sec INR 2.2 H (<1.2) Sodium 135 L (137-145) mmol/L BUN 24 H (9-20) mg/dL Glucose 145 H (74-99) mg/dL Calcium 8.2 L (8.4-10.2) mg/dL Microbiology - Last 24 Hours (Table) 11/20/22 06:13 Blood Culture - Preliminary Blood No Growth after 48 hours 11/20/22 06:13 Blood Culture - Preliminary Blood No Growth after 48 hours Assessment and Plan Assessment: Altered mental status , mostly metabolic encephalopathy. underlying dementia/neurodegenerative disease patient with possible aspiration pneumonia, Vascular congestion, possible acute CHF, ejection fraction Possible mild COPD exacerbation mild thrombocytopenia on admission Hypertension Hyperlipidemia History of osteoarthritis History of syncope History of benign prostatic hypertrophy History of bradycardia History of chronic back pain with right side sciatica Low normal folate Plan: Continue with Antibiotics. Zosyn. Continue with IV Lasix 20mg Q12 Monitor INR Blood cultures negative so far. Procalcitonin level is not elevated. Continue with breathing treatment and/or oxygen as needed Cardiology neurology is on board. DVT prophylaxis: On Coumadin GI Prophylaxis: Pepcid PT/OT: Pending Prognosis is guarded Time with Patient: Greater than 30
--- NOTE | 2022-11-24 23:41 | P.PN ---
Subjective Progress Note Date: 11/23/22 Pt. is a pleasant 77 years old male with multiple medical problems as below Patient presents because of confusion and nonproductive cough. Patient somewhat is poor historian. History is oriented to time place and person, he thinks is 1999 and he could not tell the place or remember the name of the president, also he does not know why here in the hospital however he follows simple commands. He looks a little bit agitated he keeps trying to hold the side rail of the bed. However patient states that his breathing is shallow, also is been complaining of from some coughing but no chest pain, he denies any GI or urinary complaints, no abdominal pain or vomiting or diarrhea, no urgency or hesitancy. No headache weakness or numbness On admission he was hypertensive with blood pressure 198/102, currently blood pressure 169/82, patient is afebrile. He is saturating 9200% on room air. unremarkable cbc Exit for low platelet 121, INR is 1.4. BMP and liver enzymes were unremarkable. TSH normal 2.0. Ammonia less than 9. Urine analysis is not suspicious for infection Urine drug screen is negative. Tylenol and serum alcohol and salicylates are negative. viruses t are not detected including influenza and coronavirus CT of the brain: No acute abnormality Chest x-ray: Cardiomegaly with bibasilar acute infiltrates and/or atelectasis. EKG showing ventricular paced rhythm On admission patient received Haldol and Zithromax and ceftriaxone However repeat chest x-ray reported by radiologist as resolution of the infiltrate. I reviewed the chest x-rays by myself and looks hyperinflation suspicious for COPD. 11/21/2020 Patient was more calm and comfortable in the morning however still confused. P atama did not complain from symptoms, no chest pain or dyspnea or completely in the morning. Discussed the case with neurology team. No new complaints His vitals were stable. Later on a developed low-grade temperature. Also he was saturating 96% on room air and oriented however got worse later this afternoon. Repeat chest x-ray showed possible left lower lobe atelectasis, however pneumonia cannot be exclude, also there was vascular congestion, also blood pressure was noticed to be elevated therefore patient was started on IV Lasix twice daily. I discussed the case with his daughter and all questions answered to satisfaction. There was concerns about secretions, suction was done. Also we'll consult cardiology the morning, also patient pacemaker the cardia. INR is at 2.0, discussed with the daughter sweetie about reason for his Coumadin, she states he was taken.g it for a long time. We'll start the patient on IV Zosyn for possible aspiration pneumonia, we will check so later evaluations were divided, patient earlier could not swallow his pills. Also he is on IV Lasix. 11/22/2022 Patient is currently resting in the bed. Mentation is slightly better compared to yesterday. More responsive today. Patient has been afebrile. Currently on 2 L oxygen via nasal cannula.. No nausea vomiting, no abd Pain or diarrhea. Laboratory data showed WBC 8.4 hemoglobin 15.1 platelets 126 Sodium 133 potassium 3.7 chloride 98 bicarb is 27 BUN 24 and creatinine 1.09 and calcium 8.2. Blood cultures negative so far. Patient is being current on antibiotics and abdominal Zosyn. Also on Coumadin dosing and metoprolol. 11/23/2022 Patient is currently resting in bed. Awake alert and but seems to be lethargic and drowsy. Morning dose of Seroquel has been discontinued. Otherwise patient is being current on IV Lasix 20 mg twice daily. Procalcitonin is not elevated antibiotics -de-escalated to Unasyn and continue for total of 5 days.. Mentation is improving. Cardiology is on board. Neurology has seen the patient. 2D echocardiogram was done. Current medications reviewed. Objective - Vital Signs Vital signs: Vital Signs Temp 97.6 F 11/23/22 14:15 Pulse 70 11/23/22 14:15 Resp 18 11/23/22 14:15 BP 122/78 11/23/22 14:15 Pulse Ox 94 L 11/23/22 14:15 FiO2 Intake & Output 11/23/22 11/23/22 11/24/22 06:59 18:59 06:59 Intake Total 500 100 Output Total 300 Balance 200 100 Intake: Intake, IV Titration 200 100 Amount Piperacillin-Tazobactam 3 200 100 .375 gm In Sodium Chloride 0.9% 100 ml @ 25 mls/hr IVPB Q8H [facility] Rx#: [id number] Oral 300 Output: Urine 300 Other: Voiding Method External Catheter Urinal Incontinent External Catheter - Exam - Exam -GENERAL: The patient is alert, awake looks more, but still confused, follows simple commands, not in any acute distress. Well developed, well nourished. HEENT: Pupils are round and equally reacting to light. EOMI. No scleral icterus. No conjunctival pallor. Normocephalic, atraumatic. No pharyngeal erythema. No thyromegaly. CARDIOVASCULAR: S1 and S2 present. No murmurs, rubs, or gallops. PULMONARY: Chest is clear to auscultation, no wheezing or crackles. ABDOMEN: Soft, nontender, nondistended, normoactive bowel sounds. No palpable organomegaly. MUSCULOSKELETAL: No joint swelling or deformity. EXTREMITIES: No cyanosis, clubbing, or pedal edema. NEUROLOGICAL: Gross neurological examination did not reveal any focal deficits. SKIN: No rashes. no petechiae. - Labs CBC & Chem 7: 11/24/22 04:24 11/24/22 04:24 Labs: Abnormal Lab Results - Last 24 Hours (Table) 11/23/22 11/23/22 11/23/22 Range/Units 07:10 07:10 07:10 Plt Count 137 L (140-440) X 10*3/uL Eosinophils # 0.02 L (0.04-0.35) X 10*3/uL PT 25.0 H (9.0-12.0) sec INR 2.6 H (<1.2) Chloride 92 L (96-109) mmol/L Carbon Dioxide 32.0 H (20.0-27.5) mmol/L BUN/Creatinine Ratio 20.27 H (12.00-20.00) Ratio Microbiology - Last 24 Hours (Table) 11/20/22 06:13 Blood Culture - Preliminary Blood No Growth after 72 hours 11/20/22 06:13 Blood Culture - Preliminary Blood No Growth after 72 hours Assessment and Plan Assessment: Altered mental status , mostly metabolic encephalopathy. 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 chnage to PO Monitor INR Blood cultures negative so far. Procalcitonin level is not elevated. Continue with breathing treatment and/or oxygen as needed Continue with antibiotic for total of 5 days. Cardiology neurology has seen the pt.. DVT prophylaxis: On Coumadin GI Prophylaxis: Pepcid PT/OT: Pending Prognosis is guarded Time with Patient: Greater than 30
--- NOTE | 2022-11-24 23:43 | P.PN ---
Subjective Progress Note Date: 11/24/22 Pt. is a pleasant 77 years old male with multiple medical problems as below Patient presents because of confusion and nonproductive cough. Patient somewhat is poor historian. History is oriented to time place and person, he thinks is 1999 and he could not tell the place or remember the name of the president, also he does not know why here in the hospital however he follows simple commands. He looks a little bit agitated he keeps trying to hold the side rail of the bed. However patient states that his breathing is shallow, also is been complaining of from some coughing but no chest pain, he denies any GI or urinary complaints, no abdominal pain or vomiting or diarrhea, no urgency or hesitancy. No headache weakness or numbness On admission he was hypertensive with blood pressure 198/102, currently blood pressure 169/82, patient is afebrile. He is saturating 9200% on room air. unremarkable cbc Exit for low platelet 121, INR is 1.4. BMP and liver enzymes were unremarkable. TSH normal 2.0. Ammonia less than 9. Urine analysis is not suspicious for infection Urine drug screen is negative. Tylenol and serum alcohol and salicylates are negative. viruses t are not detected including influenza and coronavirus CT of the brain: No acute abnormality Chest x-ray: Cardiomegaly with bibasilar acute infiltrates and/or atelectasis. EKG showing ventricular paced rhythm On admission patient received Haldol and Zithromax and ceftriaxone However repeat chest x-ray reported by radiologist as resolution of the infiltrate. I reviewed the chest x-rays by myself and looks hyperinflation suspicious for COPD. 11/21/2020 Patient was more calm and comfortable in the morning however still confused. P atama did not complain from symptoms, no chest pain or dyspnea or completely in the morning. Discussed the case with neurology team. No new complaints His vitals were stable. Later on a developed low-grade temperature. Also he was saturating 96% on room air and oriented however got worse later this afternoon. Repeat chest x-ray showed possible left lower lobe atelectasis, however pneumonia cannot be exclude, also there was vascular congestion, also blood pressure was noticed to be elevated therefore patient was started on IV Lasix twice daily. I discussed the case with his daughter and all questions answered to satisfaction. There was concerns about secretions, suction was done. Also we'll consult cardiology the morning, also patient pacemaker the cardia. INR is at 2.0, discussed with the daughter sweetie about reason for his Coumadin, she states he was taken.g it for a long time. We'll start the patient on IV Zosyn for possible aspiration pneumonia, we will check so later evaluations were divided, patient earlier could not swallow his pills. Also he is on IV Lasix. 11/22/2022 Patient is currently resting in the bed. Mentation is slightly better compared to yesterday. More responsive today. Patient has been afebrile. Currently on 2 L oxygen via nasal cannula.. No nausea vomiting, no abd Pain or diarrhea. Laboratory data showed WBC 8.4 hemoglobin 15.1 platelets 126 Sodium 133 potassium 3.7 chloride 98 bicarb is 27 BUN 24 and creatinine 1.09 and calcium 8.2. Blood cultures negative so far. Patient is being current on antibiotics and abdominal Zosyn. Also on Coumadin dosing and metoprolol. 11/23/2022 Patient is currently resting in bed. Awake alert and but seems to be lethargic and drowsy. Morning dose of Seroquel has been discontinued. Otherwise patient is being current on IV Lasix 20 mg twice daily. Procalcitonin is not elevated antibiotics -de-escalated to Unasyn and continue for total of 5 days.. Mentation is improving. Cardiology is on board. Neurology has seen the patient. 2D echocardiogram was done. 11/24/2022 Patient is currently resting in bed. Seems to be more awake and oriented today. Able to tolerate oral diet. No complaints of chest pain or shortness of breath. Currently down to room air with pulse ox 93%. Currently on antibiotics above Unasyn. Blood pressure is stable. Denies any nausea vomiting or abdominal pain or diarrhea. No cough or sputum production. Cardiology is on board. 2D echocardiogram showed normal ejection fraction and mild MR. Current medications reviewed. Objective - Vital Signs Vital signs: Vital Signs Temp 97.7 F 11/24/22 19:17 Pulse 69 11/24/22 19:17 Resp 20 11/24/22 19:17 BP 137/90 11/24/22 19:17 Pulse Ox 90 L 11/24/22 19:17 FiO2 Intake & Output 11/24/22 11/24/22 11/25/22 06:59 18:59 06:59 Intake Total 500 100 Output Total 250 Balance 500 100 -250 Intake: Intake, IV Titration 200 100 Amount Ampicillin-Sulbactam 3 gm 200 100 In Sodium Chloride 0.9% 100 ml @ 200 mls/hr IVPB Q6HR [facility] Rx#:[id number] Oral 300 Output: Urine 250 Other: # Voids 3 # Bowel Movements 1 - Exam - Exam -GENERAL: The patient is alert, awake looks more, but still confused, follows simple commands, not in any acute distress. Well developed, well nourished. HEENT: Pupils are round and equally reacting to light. EOMI. No scleral icterus. No conjunctival pallor. Normocephalic, atraumatic. No pharyngeal erythema. No thyromegaly. CARDIOVASCULAR: S1 and S2 present. No murmurs, rubs, or gallops. PULMONARY: Chest is clear to auscultation, no wheezing or crackles. ABDOMEN: Soft, nontender, nondistended, normoactive bowel sounds. No palpable organomegaly. MUSCULOSKELETAL: No joint swelling or deformity. EXTREMITIES: No cyanosis, clubbing, or pedal edema. NEUROLOGICAL: Gross neurological examination did not reveal any focal deficits. SKIN: No rashes. no petechiae. - Labs CBC & Chem 7: 11/24/22 04:24 11/24/22 04:24 Labs: Abnormal Lab Results - Last 24 Hours (Table) 11/24/22 11/24/22 11/24/22 Range/Units 04:24 04:24 04:24 Eosinophils # 0.02 L (0.04-0.35) X 10*3/uL PT 33.3 H (9.0-12.0) sec INR 3.4 H (<1.2) Potassium 3.4 L (3.5-5.5) mmol/L Carbon Dioxide 33.2 H (20.0-27.5) mmol/L Microbiology - Last 24 Hours (Table) 11/20/22 06:13 Blood Culture - Preliminary Blood No Growth after 96 hours 11/20/22 06:13 Blood Culture - Preliminary Blood No Growth after 96 hours Assessment and Plan Assessment: Altered mental status , mostly metabolic encephalopathy. 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 chnage to PO Monitor INR Blood cultures negative so far. Procalcitonin level is not elevated. Continue with breathing treatment and/or oxygen as needed Continue with antibiotic for total of 5 days. Cardiology neurology has seen the pt.. DVT prophylaxis: On Coumadin GI Prophylaxis: Pepcid PT/OT: Pending Prognosis is guarded Time with Patient: Greater than 30
[2022-11-25] MEDS: AMPICILLIN-SULBACTAM 3 GM in SODIUM CHLORIDE 0.9% 100 ML IVPB SCH ×5 (00:08→23:06)
[2022-11-25 07:43] LABS: INR 3.6 (<1.2); Prothrombin Time 35.4 sec (9.0-12.0)
[2022-11-25] MEDS: METOPROLOL TARTRATE 25 MG TAB PO SCH ×2 (08:54→23:06)
[2022-11-25] MEDS: GABAPENTIN 300 MG CAP PO SCH ×2 (08:54→23:06)
[2022-11-25] MEDS: FOLIC ACID 1 MG TAB PO SCH (08:54)
[2022-11-25] MEDS: FAMOTIDINE 20 MG TAB PO SCH ×2 (08:54→23:06)
[2022-11-25] MEDS: FLUDROCORTISONE 0.1 MG TAB PO SCH (08:55)
[2022-11-25 12:52] VITALS: BMI 27.8
[2022-11-25 14:00] LABS: HCT 45.6 % (39.6-50.0); HGB 15.4 g/dL (13.0-17.0); MCH 30.5 pg (27.0-32.0); MCHC 33.8 g/dL (32.0-37.0); MCV 90.3 fL (80.0-97.0); Mean Platelet Volume 10.6 fL (9.5-12.2); NRBC Per 100 WBC 0 /100 WBCS (0.0-0.0); Platelet Count 172 X 10*3/uL (140-440); RBC 5.05 X 10*6/uL (4.40-5.60); RDW 12.6 % (11.5-14.5); WBC 5.86 X 10*3/uL (4.50-10.00)
[2022-11-25 14:10] LABS: African American GFR (CKD) 73.6 (60.0-200.0); Albumin 3.8 g/dL (3.8-4.9); Albumin/Globulin Ratio 1.81 (1.60-3.17); Anion Gap 12.5 mmol/L (10.00-18.00); BUN/Creat Ratio 17.55 Ratio (12.00-20.00); Blood Urea Nitrogen 19.3 mg/dL (9.0-27.0); Calcium 8.9 mg/dL (8.7-10.3); Carbon Dioxide 33.5 mmol/L (20.0-27.5); Globulin 2.1 g/dL (1.6-3.3); Non-African American GFR(CKD) 63.5 (60.0-200.0); Potassium 3.4 mmol/L (3.5-5.5); Total Bilirubin 0.7 mg/dL (0.30-1.20); Total Protein 5.9 g/dL (6.2-8.2)
[2022-11-25 14:33] LABS: Basophils # (A) 0.03 X 10*3/uL (0.00-0.10); Basophils % (A) 0.5 %; Eosinophils # (A) 0.06 X 10*3/uL (0.04-0.35); Immature Grans, Automated 0.2 %; Lymphocytes # (A) 1.61 X 10*3/uL (0.90-5.00); Lymphocytes % (A) 27.5 %; Monocytes # (A) 0.67 X 10*3/uL (0.20-1.00); Monocytes % (A) 11.4 %; Neutrophils # (A) 3.48 X 10*3/uL (1.80-7.70); Neutrophils % (A) 59.4 %; RBC Morphology NORMAL
[2022-11-25] MEDS ORDERED: WARFARIN 0.5 MG TAB PO ONE (18:00)
[2022-11-25] MEDS: ACETAMINOPHEN TAB 325 MG TAB PO PRN (18:04)
[2022-11-25] MEDS: traZODone HCL 100 MG TAB PO SCH (23:06)
[2022-11-25] MEDS: QUEtiapine 25 MG TAB PO SCH (23:06)
[2022-11-26 06:29] LABS: INR 3.5 (<1.2); Prothrombin Time 33.7 sec (9.0-12.0)
[2022-11-26] MEDS: AMPICILLIN-SULBACTAM 3 GM in SODIUM CHLORIDE 0.9% 100 ML IVPB SCH ×3 (06:51→16:50)
[2022-11-26 08:53] LABS: Basophils # (A) 0.05 X 10*3/uL (0.00-0.10); Basophils % (A) 0.7 %; Eosinophils # (A) 0.09 X 10*3/uL (0.04-0.35); Eosinophils % (A) 1.3 %; HCT 47.7 % (39.6-50.0); HGB 15.8 g/dL (13.0-17.0); Immature Grans, Automated 0.4 %; Lymphocytes # (A) 1.62 X 10*3/uL (0.90-5.00); Lymphocytes % (A) 23.6 %; MCH 30.2 pg (27.0-32.0); MCHC 33.1 g/dL (32.0-37.0); MCV 91.2 fL (80.0-97.0); Mean Platelet Volume 10.8 fL (9.5-12.2); Monocytes # (A) 0.68 X 10*3/uL (0.20-1.00); Monocytes % (A) 9.9 %; NRBC Per 100 WBC 0 /100 WBCS (0.0-0.0); Neutrophils % (A) 64.1 %; Platelet Count 179 X 10*3/uL (140-440); RBC 5.23 X 10*6/uL (4.40-5.60); RDW 12.3 % (11.5-14.5); WBC 6.87 X 10*3/uL (4.50-10.00)
[2022-11-26 09:09] LABS: African American GFR (CKD) 93.8 (60.0-200.0); Anion Gap 11.4 mmol/L (10.00-18.00); BUN/Creat Ratio 16.67 Ratio (12.00-20.00); Calcium 9.3 mg/dL (8.7-10.3); Carbon Dioxide 32.6 mmol/L (20.0-27.5); Non-African American GFR(CKD) 80.9 (60.0-200.0); Potassium 3.3 mmol/L (3.5-5.5)
[2022-11-26] MEDS: GABAPENTIN 300 MG CAP PO SCH ×2 (10:14→22:33)
[2022-11-26] MEDS: METOPROLOL TARTRATE 25 MG TAB PO SCH ×2 (10:15→22:32)
[2022-11-26] MEDS: FOLIC ACID 1 MG TAB PO SCH (10:15)
[2022-11-26] MEDS: FAMOTIDINE 20 MG TAB PO SCH ×2 (10:15→22:43)
[2022-11-26] MEDS ORDERED: WARFARIN 0.5 MG TAB PO ONE (18:00)
[2022-11-26] MEDS ORDERED: POTASSIUM CHLORIDE ER 20 MEQ TAB.ER PO STA (22:18)
[2022-11-26] MEDS: QUEtiapine 25 MG TAB PO SCH (22:33)
[2022-11-26] MEDS: traZODone HCL 100 MG TAB PO SCH (22:33)
[2022-11-27] MEDS: AMPICILLIN-SULBACTAM 3 GM in SODIUM CHLORIDE 0.9% 100 ML IVPB SCH ×4 (00:10→17:11)
[2022-11-27 07:05] LABS: INR 2.1 (<1.2); Prothrombin Time 20.8 sec (9.0-12.0)
[2022-11-27 09:08] LABS: Basophils # (A) 0.03 X 10*3/uL (0.00-0.10); Basophils % (A) 0.4 %; Eosinophils % (A) 1.5 %; HCT 44.6 % (39.6-50.0); HGB 15.2 g/dL (13.0-17.0); Immature Grans, Automated 0.3 %; Lymphocytes % (A) 19.2 %; MCH 30.5 pg (27.0-32.0); MCHC 34.1 g/dL (32.0-37.0); MCV 89.4 fL (80.0-97.0); Mean Platelet Volume 10.4 fL (9.5-12.2); Monocytes # (A) 0.62 X 10*3/uL (0.20-1.00); Monocytes % (A) 9.2 %; NRBC Per 100 WBC 0 /100 WBCS (0.0-0.0); Neutrophils % (A) 69.4 %; Platelet Count 225 X 10*3/uL (140-440); RBC 4.99 X 10*6/uL (4.40-5.60); RDW 12.4 % (11.5-14.5); WBC 6.77 X 10*3/uL (4.50-10.00)
[2022-11-27] MEDS: FOLIC ACID 1 MG TAB PO SCH (09:16)
[2022-11-27] MEDS: ACETAMINOPHEN TAB 325 MG TAB PO PRN (09:16)
[2022-11-27] MEDS: GABAPENTIN 300 MG CAP PO SCH ×2 (09:16→22:05)
[2022-11-27] MEDS: FAMOTIDINE 20 MG TAB PO SCH ×2 (09:17→22:05)
[2022-11-27] MEDS: METOPROLOL TARTRATE 25 MG TAB PO SCH ×2 (09:17→22:05)
[2022-11-27] MEDS: FLUDROCORTISONE 0.1 MG TAB PO SCH (09:17)
[2022-11-27 09:25] LABS: African American GFR (CKD) 73.6 (60.0-200.0); Anion Gap 10.8 mmol/L (10.00-18.00); BUN/Creat Ratio 11.82 Ratio (12.00-20.00); Calcium 9.4 mg/dL (8.7-10.3); Carbon Dioxide 31.2 mmol/L (20.0-27.5); Non-African American GFR(CKD) 63.5 (60.0-200.0); Potassium 3.6 mmol/L (3.5-5.5)
[2022-11-27] MEDS ORDERED: QUEtiapine 25 MG TAB PO STA (13:04)
[2022-11-27] MEDS ORDERED: WARFARIN 2 MG TAB PO ONE (18:00)
[2022-11-27] MEDS: traZODone HCL 100 MG TAB PO SCH (22:05)
[2022-11-27] MEDS: QUEtiapine 25 MG TAB PO SCH (22:05)
[2022-11-28] MEDS: AMPICILLIN-SULBACTAM 3 GM in SODIUM CHLORIDE 0.9% 100 ML IVPB SCH ×3 (00:34→13:43)
[2022-11-28 07:31] LABS: Prothrombin Time 19.4 sec (9.0-12.0)
[2022-11-28] MEDS: GABAPENTIN 300 MG CAP PO SCH ×2 (08:23→20:36)
[2022-11-28] MEDS: FOLIC ACID 1 MG TAB PO SCH (08:23)
[2022-11-28] MEDS: FAMOTIDINE 20 MG TAB PO SCH ×2 (08:23→20:36)
[2022-11-28] MEDS: METOPROLOL TARTRATE 25 MG TAB PO SCH ×2 (08:23→20:36)
[2022-11-28 10:38] LABS: Basophils # (A) 0.03 X 10*3/uL (0.00-0.10); Basophils % (A) 0.5 %; Eosinophils # (A) 0.17 X 10*3/uL (0.04-0.35); Eosinophils % (A) 2.6 %; HCT 45.6 % (39.6-50.0); HGB 15.6 g/dL (13.0-17.0); Immature Grans, Automated 0.5 %; Lymphocytes # (A) 1.36 X 10*3/uL (0.90-5.00); MCH 30.4 pg (27.0-32.0); MCHC 34.2 g/dL (32.0-37.0); MCV 88.9 fL (80.0-97.0); Mean Platelet Volume 10.6 fL (9.5-12.2); Monocytes # (A) 0.57 X 10*3/uL (0.20-1.00); Monocytes % (A) 8.8 %; NRBC Per 100 WBC 0 /100 WBCS (0.0-0.0); Neutrophils # (A) 4.31 X 10*3/uL (1.80-7.70); Neutrophils % (A) 66.6 %; Platelet Count 249 X 10*3/uL (140-440); RBC 5.13 X 10*6/uL (4.40-5.60); RDW 12.4 % (11.5-14.5); WBC 6.47 X 10*3/uL (4.50-10.00)
[2022-11-28 10:54] LABS: African American GFR (CKD) 82.6 (60.0-200.0); Anion Gap 11.4 mmol/L (10.00-18.00); BUN/Creat Ratio 10.4 Ratio (12.00-20.00); Blood Urea Nitrogen 10.4 mg/dL (9.0-27.0); Calcium 9.3 mg/dL (8.7-10.3); Carbon Dioxide 29.6 mmol/L (20.0-27.5); Non-African American GFR(CKD) 71.3 (60.0-200.0); Potassium 3.5 mmol/L (3.5-5.5)
--- NOTE | 2022-11-28 12:12 | P.PN ---
Subjective Progress Note Date: 11/25/22 Pt. is a pleasant 77 years old male with multiple medical problems as below Patient presents because of confusion and nonproductive cough. Patient somewhat is poor historian. History is oriented to time place and person, he thinks is 1999 and he could not tell the place or remember the name of the president, also he does not know why here in the hospital however he follows simple commands. He looks a little bit agitated he keeps trying to hold the side rail of the bed. However patient states that his breathing is shallow, also is been complaining of from some coughing but no chest pain, he denies any GI or urinary complaints, no abdominal pain or vomiting or diarrhea, no urgency or hesitancy. No headache weakness or numbness On admission he was hypertensive with blood pressure 198/102, currently blood pressure 169/82, patient is afebrile. He is saturating 9200% on room air. unremarkable cbc Exit for low platelet 121, INR is 1.4. BMP and liver enzymes were unremarkable. TSH normal 2.0. Ammonia less than 9. Urine analysis is not suspicious for infection Urine drug screen is negative. Tylenol and serum alcohol and salicylates are negative. viruses t are not detected including influenza and coronavirus CT of the brain: No acute abnormality Chest x-ray: Cardiomegaly with bibasilar acute infiltrates and/or atelectasis. EKG showing ventricular paced rhythm On admission patient received Haldol and Zithromax and ceftriaxone However repeat chest x-ray reported by radiologist as resolution of the infiltrate. I reviewed the chest x-rays by myself and looks hyperinflation suspicious for COPD. 11/21/2020 Patient was more calm and comfortable in the morning however still confused. P atama did not complain from symptoms, no chest pain or dyspnea or completely in the morning. Discussed the case with neurology team. No new complaints His vitals were stable. Later on a developed low-grade temperature. Also he was saturating 96% on room air and oriented however got worse later this afternoon. Repeat chest x-ray showed possible left lower lobe atelectasis, however pneumonia cannot be exclude, also there was vascular congestion, also blood pressure was noticed to be elevated therefore patient was started on IV Lasix twice daily. I discussed the case with his daughter and all questions answered to satisfaction. There was concerns about secretions, suction was done. Also we'll consult cardiology the morning, also patient pacemaker the cardia. INR is at 2.0, discussed with the daughter sweetie about reason for his Coumadin, she states he was taken.g it for a long time. We'll start the patient on IV Zosyn for possible aspiration pneumonia, we will check so later evaluations were divided, patient earlier could not swallow his pills. Also he is on IV Lasix. 11/22/2022 Patient is currently resting in the bed. Mentation is slightly better compared to yesterday. More responsive today. Patient has been afebrile. Currently on 2 L oxygen via nasal cannula.. No nausea vomiting, no abd Pain or diarrhea. Laboratory data showed WBC 8.4 hemoglobin 15.1 platelets 126 Sodium 133 potassium 3.7 chloride 98 bicarb is 27 BUN 24 and creatinine 1.09 and calcium 8.2. Blood cultures negative so far. Patient is being current on antibiotics and abdominal Zosyn. Also on Coumadin dosing and metoprolol. 11/23/2022 Patient is currently resting in bed. Awake alert and but seems to be lethargic and drowsy. Morning dose of Seroquel has been discontinued. Otherwise patient is being current on IV Lasix 20 mg twice daily. Procalcitonin is not elevated antibiotics -de-escalated to Unasyn and continue for total of 5 days.. Mentation is improving. Cardiology is on board. Neurology has seen the patient. 2D echocardiogram was done. 11/24/2022 Patient is currently resting in bed. Seems to be more awake and oriented today. Able to tolerate oral diet. No complaints of chest pain or shortness of breath. Currently down to room air with pulse ox 93%. Currently on antibiotics above Unasyn. Blood pressure is stable. Denies any nausea vomiting or abdominal pain or diarrhea. No cough or sputum production. Cardiology is on board. 2D echocardiogram showed normal ejection fraction and mild MR. 11/25/2022 Patient is currently lying in the bed. Awake alert and oriented. As stated times. No complains of chest pain. Shortness of breath did improve. Currently on room air. No fever no chills. No cough is from production. No nausea vomiting or abdominal pain and diarrhea. Tolerating minimal oral intake. Blood pressure is stable. Patient is being continued on PT OT and possible discharge to rehab. Discussed with the family at bedside in detail Current medications reviewed. Objective - Vital Signs Vital signs: Vital Signs Temp 98.0 F 11/25/22 19:25 Pulse 70 11/25/22 19:25 Resp 18 11/25/22 19:25 BP 137/85 11/25/22 19:25 Pulse Ox 91 L 11/25/22 19:25 FiO2 Intake & Output 11/25/22 11/25/22 11/26/22 06:59 18:59 06:59 Intake Total 300 Output Total 250 Balance 50 Weight 92.986 kg Intake: Oral 300 Output: Urine 250 Other: # Voids 4 - Exam - Exam -GENERAL: The patient is alert, awake looks more, but still confused, follows simple commands, not in any acute distress. Well developed, well nourished. HEENT: Pupils are round and equally reacting to light. EOMI. No scleral icterus. No conjunctival pallor. Normocephalic, atraumatic. No pharyngeal erythema. No thyromegaly. CARDIOVASCULAR: S1 and S2 present. No murmurs, rubs, or gallops. PULMONARY: Chest is clear to auscultation, no wheezing or crackles. ABDOMEN: Soft, nontender, nondistended, normoactive bowel sounds. No palpable organomegaly. MUSCULOSKELETAL: No joint swelling or deformity. EXTREMITIES: No cyanosis, clubbing, or pedal edema. NEUROLOGICAL: Gross neurological examination did not reveal any focal deficits. SKIN: No rashes. no petechiae. - Labs CBC & Chem 7: 11/28/22 06:58 11/28/22 06:58 Labs: Abnormal Lab Results - Last 24 Hours (Table) 11/25/22 11/25/22 Range/Units 06:52 06:52 PT 35.4 H (9.0-12.0) sec INR 3.6 H (<1.2) Sodium 146 H (135-145) mmol/L Potassium 3.4 L (3.5-5.5) mmol/L Carbon Dioxide 33.5 H (20.0-27.5) mmol/L Total Protein 5.9 L (6.2-8.2) g/dL Microbiology - Last 24 Hours (Table) 11/20/22 06:13 Blood Culture - Preliminary Blood No Growth after 120 hours 11/20/22 06:13 Blood Culture - Preliminary Blood No Growth after 120 hours Assessment and Plan Assessment: Altered mental status , mostly metabolic encephalopathy. underlying demen tia/neurodegenerative disease, improving patient with possible aspiration pneumonia, Vascular congestion, acute CHF, ejection fraction Sick sinus syndrome with history of permanent pacemaker placement Paroxysmal atrial fibrillation on anticoagulation with Coumadin Possible mild COPD exacerbation mild thrombocytopenia on admission Hypertension Hyperlipidemia History of osteoarthritis History of syncope History of benign prostatic hypertrophy History of bradycardia History of chronic back pain with right side sciatica Low normal folate Plan: Patient was on IV Lasix. Seen by cardiology. Blood cultures negative so far. Procalcitonin level is not elevated. Continue with breathing treatment and/or oxygen as needed Continue with antibiotic for total of 5 days. Cardiology neurology has seen the pt.. DVT prophylaxis: On Coumadin GI Prophylaxis: Pepcid PT/OT: Pending Prognosis is guarded continue with Seroquel hitches and when necessary. Time with Patient: Greater than 30
--- NOTE | 2022-11-28 12:14 | P.PN ---
Subjective Progress Note Date: 11/26/22 Pt. is a pleasant 77 years old male with multiple medical problems as below Patient presents because of confusion and nonproductive cough. Patient somewhat is poor historian. History is oriented to time place and person, he thinks is 1999 and he could not tell the place or remember the name of the president, also he does not know why here in the hospital however he follows simple commands. He looks a little bit agitated he keeps trying to hold the side rail of the bed. However patient states that his breathing is shallow, also is been complaining of from some coughing but no chest pain, he denies any GI or urinary complaints, no abdominal pain or vomiting or diarrhea, no urgency or hesitancy. No headache weakness or numbness On admission he was hypertensive with blood pressure 198/102, currently blood pressure 169/82, patient is afebrile. He is saturating 9200% on room air. unremarkable cbc Exit for low platelet 121, INR is 1.4. BMP and liver enzymes were unremarkable. TSH normal 2.0. Ammonia less than 9. Urine analysis is not suspicious for infection Urine drug screen is negative. Tylenol and serum alcohol and salicylates are negative. viruses t are not detected including influenza and coronavirus CT of the brain: No acute abnormality Chest x-ray: Cardiomegaly with bibasilar acute infiltrates and/or atelectasis. EKG showing ventricular paced rhythm On admission patient received Haldol and Zithromax and ceftriaxone However repeat chest x-ray reported by radiologist as resolution of the infiltrate. I reviewed the chest x-rays by myself and looks hyperinflation suspicious for COPD. 11/21/2020 Patient was more calm and comfortable in the morning however still confused. P atama did not complain from symptoms, no chest pain or dyspnea or completely in the morning. Discussed the case with neurology team. No new complaints His vitals were stable. Later on a developed low-grade temperature. Also he was saturating 96% on room air and oriented however got worse later this afternoon. Repeat chest x-ray showed possible left lower lobe atelectasis, however pneumonia cannot be exclude, also there was vascular congestion, also blood pressure was noticed to be elevated therefore patient was started on IV Lasix twice daily. I discussed the case with his daughter and all questions answered to satisfaction. There was concerns about secretions, suction was done. Also we'll consult cardiology the morning, also patient pacemaker the cardia. INR is at 2.0, discussed with the daughter sweetie about reason for his Coumadin, she states he was taken.g it for a long time. We'll start the patient on IV Zosyn for possible aspiration pneumonia, we will check so later evaluations were divided, patient earlier could not swallow his pills. Also he is on IV Lasix. 11/22/2022 Patient is currently resting in the bed. Mentation is slightly better compared to yesterday. More responsive today. Patient has been afebrile. Currently on 2 L oxygen via nasal cannula.. No nausea vomiting, no abd Pain or diarrhea. Laboratory data showed WBC 8.4 hemoglobin 15.1 platelets 126 Sodium 133 potassium 3.7 chloride 98 bicarb is 27 BUN 24 and creatinine 1.09 and calcium 8.2. Blood cultures negative so far. Patient is being current on antibiotics and abdominal Zosyn. Also on Coumadin dosing and metoprolol. 11/23/2022 Patient is currently resting in bed. Awake alert and but seems to be lethargic and drowsy. Morning dose of Seroquel has been discontinued. Otherwise patient is being current on IV Lasix 20 mg twice daily. Procalcitonin is not elevated antibiotics -de-escalated to Unasyn and continue for total of 5 days.. Mentation is improving. Cardiology is on board. Neurology has seen the patient. 2D echocardiogram was done. 11/24/2022 Patient is currently resting in bed. Seems to be more awake and oriented today. Able to tolerate oral diet. No complaints of chest pain or shortness of breath. Currently down to room air with pulse ox 93%. Currently on antibiotics above Unasyn. Blood pressure is stable. Denies any nausea vomiting or abdominal pain or diarrhea. No cough or sputum production. Cardiology is on board. 2D echocardiogram showed normal ejection fraction and mild MR. 11/25/2022 Patient is currently lying in the bed. Awake alert and oriented. As stated times. No complains of chest pain. Shortness of breath did improve. Currently on room air. No fever no chills. No cough is from production. No nausea vomiting or abdominal pain and diarrhea. Tolerating minimal oral intake. Blood pressure is stable. Patient is being continued on PT OT and possible discharge to rehab. Discussed with the family at bedside in detail 11/26/2022 Patient is lying in the bed. Awake alert and has generalized weakness. No complaints of chest pain. Currently on room air. Lasix changed to by mouth. Patient is being converted on Coumadin dosing. Continue with metoprolol. Heart rate is controlled. No nausea vomiting or abdominal pain or diarrhea. Tolerating oral diet. Laboratory data showed WBC 6.8 hemoglobin 15.8 and platelets 179 INR 3.5 Sodium 142 potassium 3.3 chloride 98 bicarb is 32.6. Current medications reviewed. Objective - Vital Signs Vital signs: Vital Signs Temp 98.3 F 11/26/22 20:00 Pulse 70 11/26/22 20:00 Resp 16 11/26/22 20:00 BP 154/96 11/26/22 20:00 Pulse Ox 92 L 11/26/22 20:00 FiO2 Intake & Output 11/26/22 11/26/22 11/27/22 06:59 18:59 06:59 Other: # Voids 2 2 - Exam - Exam -GENERAL: The patient is alert, awake looks more, but still confused, follows simple commands, not in any acute distress. Well developed, well nourished. HEENT: Pupils are round and equally reacting to light. EOMI. No scleral icterus. No conjunctival pallor. Normocephalic, atraumatic. No pharyngeal erythema. No thyromegaly. CARDIOVASCULAR: S1 and S2 present. No murmurs, rubs, or gallops. PULMONARY: Chest is clear to auscultation, no wheezing or crackles. ABDOMEN: Soft, nontender, nondistended, normoactive bowel sounds. No palpable organomegaly. MUSCULOSKELETAL: No joint swelling or deformity. EXTREMITIES: No cyanosis, clubbing, or pedal edema. NEUROLOGICAL: Gross neurological examination did not reveal any focal deficits. SKIN: No rashes. no petechiae. - Labs CBC & Chem 7: 11/28/22 06:58 11/28/22 06:58 Labs: Abnormal Lab Results - Last 24 Hours (Table) 11/26/22 11/26/22 Range/Units 05:19 05:19 PT 33.7 H (9.0-12.0) sec INR 3.5 H (<1.2) Potassium 3.3 L (3.5-5.5) mmol/L Carbon Dioxide 32.6 H (20.0-27.5) mmol/L Glucose 119 H (70-110) mg/dL Microbiology - Last 24 Hours (Table) 11/20/22 06:13 Blood Culture - Final Blood No Growth after 144 hours 11/20/22 06:13 Blood Culture - Final Blood No Growth after 144 hours Assessment and Plan Assessment: Altered mental status , mostly metabolic encephalopathy. 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 Changed to by mouth. Seen by cardiology. On metoprolol and Coumadin dosing. Blood cultures negative so far. Procalcitonin level is not elevated. Continue with breathing treatment and/or oxygen as needed Continue with antibiotic for total of 5 days. Cardiology neurology has seen the pt.. DVT prophylaxis: On Coumadin GI Prophylaxis: Pepcid PT/OT: Pending Prognosis is guarded continue with Seroquel hitches and when necessary. Time with Patient: Greater than 30
--- NOTE | 2022-11-28 12:15 | P.PN ---
Subjective Progress Note Date: 11/27/22 Pt. is a pleasant 77 years old male with multiple medical problems as below Patient presents because of confusion and nonproductive cough. Patient somewhat is poor historian. History is oriented to time place and person, he thinks is 1999 and he could not tell the place or remember the name of the president, also he does not know why here in the hospital however he follows simple commands. He looks a little bit agitated he keeps trying to hold the side rail of the bed. However patient states that his breathing is shallow, also is been complaining of from some coughing but no chest pain, he denies any GI or urinary complaints, no abdominal pain or vomiting or diarrhea, no urgency or hesitancy. No headache weakness or numbness On admission he was hypertensive with blood pressure 198/102, currently blood pressure 169/82, patient is afebrile. He is saturating 9200% on room air. unremarkable cbc Exit for low platelet 121, INR is 1.4. BMP and liver enzymes were unremarkable. TSH normal 2.0. Ammonia less than 9. Urine analysis is not suspicious for infection Urine drug screen is negative. Tylenol and serum alcohol and salicylates are negative. viruses t are not detected including influenza and coronavirus CT of the brain: No acute abnormality Chest x-ray: Cardiomegaly with bibasilar acute infiltrates and/or atelectasis. EKG showing ventricular paced rhythm On admission patient received Haldol and Zithromax and ceftriaxone However repeat chest x-ray reported by radiologist as resolution of the infiltrate. I reviewed the chest x-rays by myself and looks hyperinflation suspicious for COPD. 11/21/2020 Patient was more calm and comfortable in the morning however still confused. P atama did not complain from symptoms, no chest pain or dyspnea or completely in the morning. Discussed the case with neurology team. No new complaints His vitals were stable. Later on a developed low-grade temperature. Also he was saturating 96% on room air and oriented however got worse later this afternoon. Repeat chest x-ray showed possible left lower lobe atelectasis, however pneumonia cannot be exclude, also there was vascular congestion, also blood pressure was noticed to be elevated therefore patient was started on IV Lasix twice daily. I discussed the case with his daughter and all questions answered to satisfaction. There was concerns about secretions, suction was done. Also we'll consult cardiology the morning, also patient pacemaker the cardia. INR is at 2.0, discussed with the daughter sweetie about reason for his Coumadin, she states he was taken.g it for a long time. We'll start the patient on IV Zosyn for possible aspiration pneumonia, we will check so later evaluations were divided, patient earlier could not swallow his pills. Also he is on IV Lasix. 11/22/2022 Patient is currently resting in the bed. Mentation is slightly better compared to yesterday. More responsive today. Patient has been afebrile. Currently on 2 L oxygen via nasal cannula.. No nausea vomiting, no abd Pain or diarrhea. Laboratory data showed WBC 8.4 hemoglobin 15.1 platelets 126 Sodium 133 potassium 3.7 chloride 98 bicarb is 27 BUN 24 and creatinine 1.09 and calcium 8.2. Blood cultures negative so far. Patient is being current on antibiotics and abdominal Zosyn. Also on Coumadin dosing and metoprolol. 11/23/2022 Patient is currently resting in bed. Awake alert and but seems to be lethargic and drowsy. Morning dose of Seroquel has been discontinued. Otherwise patient is being current on IV Lasix 20 mg twice daily. Procalcitonin is not elevated antibiotics -de-escalated to Unasyn and continue for total of 5 days.. Mentation is improving. Cardiology is on board. Neurology has seen the patient. 2D echocardiogram was done. 11/24/2022 Patient is currently resting in bed. Seems to be more awake and oriented today. Able to tolerate oral diet. No complaints of chest pain or shortness of breath. Currently down to room air with pulse ox 93%. Currently on antibiotics above Unasyn. Blood pressure is stable. Denies any nausea vomiting or abdominal pain or diarrhea. No cough or sputum production. Cardiology is on board. 2D echocardiogram showed normal ejection fraction and mild MR. 11/25/2022 Patient is currently lying in the bed. Awake alert and oriented. As stated times. No complains of chest pain. Shortness of breath did improve. Currently on room air. No fever no chills. No cough is from production. No nausea vomiting or abdominal pain and diarrhea. Tolerating minimal oral intake. Blood pressure is stable. Patient is being continued on PT OT and possible discharge to rehab. Discussed with the family at bedside in detail 11/26/2022 Patient is lying in the bed. Awake alert and has generalized weakness. No complaints of chest pain. Currently on room air. Lasix changed to by mouth. Patient is being converted on Coumadin dosing. Continue with metoprolol. Heart rate is controlled. No nausea vomiting or abdominal pain or diarrhea. Tolerating oral diet. Laboratory data showed WBC 6.8 hemoglobin 15.8 and platelets 179 INR 3.5 Sodium 142 potassium 3.3 chloride 98 bicarb is 32.6. 11/27/2022 Patient is currently lying in the bed. Awake alert but seems to be agitated and was getting out of the bed. Patient was given extra dose of Seroquel. Otherwise patient is on room air. Heart rate is controlled. No nausea vomiting abdominal pain and diarrhea. No cough or sputum production. INR 2.1 today. Other laboratory data reviewed. PTOT follow-up and possible discharge to rehab Current medications reviewed. Objective - Vital Signs Vital signs: Vital Signs Temp 97.9 F 11/27/22 20:00 Pulse 70 11/27/22 20:00 Resp 17 11/27/22 20:00 BP 151/94 11/27/22 20:00 Pulse Ox 93 L 11/27/22 20:00 FiO2 Intake & Output 11/27/22 11/27/22 11/28/22 06:59 18:59 06:59 Output Total 300 Balance -300 Weight 92.986 kg Output: Urine 300 Other: Voiding Method Urinal Incontinent External Catheter # Voids 4 2 - Exam - Exam -GENERAL: The patient is alert, awake looks more, but still confused, follows simple commands, not in any acute distress. Well developed, well nourished. HEENT: Pupils are round and equally reacting to light. EOMI. No scleral icterus. No conjunctival pallor. Normocephalic, atraumatic. No pharyngeal erythema. No thyromegaly. CARDIOVASCULAR: S1 and S2 present. No murmurs, rubs, or gallops. PULMONARY: Chest is clear to auscultation, no wheezing or crackles. ABDOMEN: Soft, nontender, nondistended, normoactive bowel sounds. No palpable organomegaly. MUSCULOSKELETAL: No joint swelling or deformity. EXTREMITIES: No cyanosis, clubbing, or pedal edema. NEUROLOGICAL: Gross neurological examination did not reveal any focal deficits. SKIN: No rashes. no petechiae. - Labs CBC & Chem 7: 11/28/22 06:58 11/28/22 06:58 Labs: Abnormal Lab Results - Last 24 Hours (Table) 11/27/22 11/27/22 Range/Units 05:57 05:57 PT 20.8 H (9.0-12.0) sec INR 2.1 H (<1.2) Carbon Dioxide 31.2 H (20.0-27.5) mmol/L BUN/Creatinine Ratio 11.82 L (12.00-20.00) Ratio Glucose 125 H (70-110) mg/dL Assessment and Plan Assessment: Altered mental status , mostly metabolic encephalopathy. 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 Changed to by mouth. Seen by cardiology. On metoprolol and Coumadin dosing. Blood cultures negative so far. Procalcitonin level is not elevated. Continue with breathing treatment and/or oxygen as needed Continue with antibiotic for total of 5 days. Cardiology neurology has seen the pt.. DVT prophylaxis: On Coumadin GI Prophylaxis: Pepcid PT/OT: Pending Prognosis is guarded continue with Seroquel hitches and when necessary. Time with Patient: Greater than 30
[2022-11-28] MEDS: FUROSEMIDE 20 MG TAB PO SCH (13:48)
[2022-11-28] MEDS: QUEtiapine 25 MG TAB PO PRN (17:19)
[2022-11-28] MEDS ORDERED: HALOPERIDOL LACTATE 5 MG/ML 1 ML VIAL IM PRN ×2 (17:38→17:39)
[2022-11-28] MEDS ORDERED: WARFARIN 2.5 MG TAB PO ONE (18:00)
[2022-11-28] MEDS: QUEtiapine 25 MG TAB PO SCH (20:36)
[2022-11-28] MEDS: traZODone HCL 100 MG TAB PO SCH (20:36)
[2022-11-29 02:36] VITALS: PULSE 70
[2022-11-29 06:48] LABS: Prothrombin Time 19.3 sec (9.0-12.0)
[2022-11-29] MEDS ORDERED: PROMETHAZINE 25 MG TAB PO PRN (07:47)
[2022-11-29] MEDS ORDERED: ONDANSETRON 4 MG/2 ML VIAL IVP PRN (08:01)
[2022-11-29] MEDS: FLUDROCORTISONE 0.1 MG TAB PO SCH (08:39)
[2022-11-29] MEDS: FOLIC ACID 1 MG TAB PO SCH (08:40)
[2022-11-29] MEDS: QUEtiapine 25 MG TAB PO PRN (08:40)
[2022-11-29] MEDS: GABAPENTIN 300 MG CAP PO SCH (08:40)
[2022-11-29] MEDS: FAMOTIDINE 20 MG TAB PO SCH (08:40)
[2022-11-29] MEDS: FUROSEMIDE 20 MG TAB PO SCH (08:40)
[2022-11-29] MEDS: METOPROLOL TARTRATE 25 MG TAB PO SCH (08:40)
[2022-11-29 09:27] VITALS: BP 165/96; RESP 17; TEMP 97.3
--- NOTE | 2022-11-29 11:43 | P.DS ---
Providers Date of admission: 11/19/22 22:23 Expected date of discharge: 11/29/22 Attending physician: Viola Roman Consults: 11/19/22 22:20 Consult Physician Routine Consulting Provider: Francisco Dela Cruz Consult Reason/Comments: aggressive behavior, possible dementia Do you want consulting provider notified?: Yes 11/22/22 04:07 Consult Physician Routine Consulting Provider: Juan Keller Consult Reason/Comments: Possible CHF, pacemaker Do you want consulting provider notified?: Yes, Notify in am Primary care physician: Rj Perezqvi Hospital Course: Discharge diagnosis Altered mental status , mostly metabolic encephalopathy. underlying dementia/neurodegenerative disease, improved to baseline. patient with possible aspiration pneumonia, completed antibiotic course. Vascular congestion, acute CHF, presented ejection fraction. Continue with oral Lasix 20 mg daily. Sick sinus syndrome with history of permanent pacemaker placement Paroxysmal atrial fibrillation on anticoagulation with Coumadin Possible mild COPD exacerbation mild thrombocytopenia on admission Hypertension Hyperlipidemia History of osteoarthritis History of syncope History of benign prostatic hypertrophy History of bradycardia History of chronic back pain with right side sciatica Low normal folate Hospital course Pt. is a pleasant 77 years old male with multiple medical problems as below Patient presents because of confusion and nonproductive cough. Patient somewhat is poor historian. History is oriented to time place and person, he thinks is 1999 and he could not tell the place or remember the name of the president, also he does not know why here in the hospital however he follows simple commands. He looks a little bit agitated he keeps trying to hold the side rail of the bed. However patient states that his breathing is shallow, also is been complaining of from some coughing but no chest pain, he denies any GI or urinary complaints, no abdominal pain or vomiting or diarrhea, no urgency or hesitancy. No headache weakness or numbness On admission he was hypertensive with blood pressure 198/102, currently blood pressure 169/82, patient is afebrile. He is saturating 9200% on room air. unremarkable cbc Exit for low platelet 121, INR is 1.4. BMP and liver enzymes were unremarkable. TSH normal 2.0. Ammonia less than 9. Urine analysis is not suspicious for infection Urine drug screen is negative. Tylenol and serum alcohol and salicylates are negative. viruses t are not detected including influenza and coronavirus CT of the brain: No acute abnormality Chest x-ray: Cardiomegaly with bibasilar acute infiltrates and/or atelectasis. EKG showing ventricular paced rhythm On admission patient received Haldol and Zithromax and ceftriaxone 11/21/2020 Patient was more calm and comfortable in the morning however still confused. Patient did not complain from symptoms, no chest pain or dyspnea or completely in the morning. Discussed the case with neurology team. No new complaints His vitals were stable. Later on a developed low-grade temperature. Also he was saturating 96% on room air and oriented however got worse later this afternoon. Repeat chest x-ray showed possible left lower lobe atelectasis, however pneumonia cannot be exclude, also there was vascular congestion, also blood pressure was noticed to be elevated therefore patient was started on IV Lasix twice daily. I discussed the case with his daughter and all questions answered to satisfaction. There was concerns about secretions, suction was done. Also we'll consult cardiology the morning, also patient pacemaker the cardia. INR is at 2.0, discussed with the daughter sweetie about reason for his Coumadin, she states he was taken.g it for a long time. We'll start the patient on IV Zosyn for possible aspiration pneumonia, we will check so later evaluations were divided, patient earlier could not swallow his pills. Also he is on IV Lasix. 11/22/2022 Patient is currently resting in the bed. Mentation is slightly better compared to yesterday. More responsive today. Patient has been afebrile. Currently on 2 L oxygen via nasal cannula.. No nausea vomiting, no abd Pain or diarrhea. Laboratory data showed WBC 8.4 hemoglobin 15.1 platelets 126 Sodium 133 potassium 3.7 chloride 98 bicarb is 27 BUN 24 and creatinine 1.09 and calcium 8.2. Blood cultures negative so far. Patient is being current on antibiotics and abdominal Zosyn. Also on Coumadin dosing and metoprolol. 11/23/2022 Patient is currently resting in bed. Awake alert and but seems to be lethargic and drowsy. Morning dose of Seroquel has been discontinued. Otherwise patient is being current on IV Lasix 20 mg twice daily. Procalcitonin is not elevated antibiotics -de-escalated to Unasyn and continue for total of 5 days.. Mentation is improving. Cardiology is on board. Neurology has seen the patient. 2D echocardiogram was done. 11/24/2022 Patient is currently resting in bed. Seems to be more awake and oriented today. Able to tolerate oral diet. No complaints of chest pain or shortness of breath. Currently down to room air with pulse ox 93%. Currently on antibiotics above Unasyn. Blood pressure is stable. Denies any nausea vomiting or abdominal pain or diarrhea. No cough or sputum production. Cardiology is on board. 2D echocardiogram showed normal ejection fraction and mild MR. 11/25/2022 Patient is currently lying in the bed. Awake alert and oriented. As stated times. No complains of chest pain. Shortness of breath did improve. Currently on room air. No fever no chills. No cough is from production. No nausea vomiting or abdominal pain and diarrhea. Tolerating minimal oral intake. Blood pressure is stable. Patient is being continued on PT OT and possible discharge to rehab. Discussed with the family at bedside in detail 11/26/2022 Patient is lying in the bed. Awake alert and has generalized weakness. No complaints of chest pain. Currently on room air. Lasix changed to by mouth. Patient is being converted on Coumadin dosing. Continue with metoprolol. Heart rate is controlled. No nausea vomiting or abdominal pain or diarrhea. Tolerating oral diet. Laboratory data showed WBC 6.8 hemoglobin 15.8 and platelets 179 INR 3.5 Sodium 142 potassium 3.3 chloride 98 bicarb is 32.6. 11/27/2022 Patient is currently lying in the bed. Awake alert but seems to be agitated and was getting out of the bed. Patient was given extra dose of Seroquel. Otherwise patient is on room air. Heart rate is controlled. No nausea vomiting abdominal pain and diarrhea. No cough or sputum production. INR 2.1 today. Other laboratory data reviewed. PTOT follow-up and possible discharge to rehab 11/28/2022 Patient is currently tolerating his family. Awake alert and oriented. Breathing status is better. Continue with oral Lasix 20 mg daily. Patient is on room air. No complaints of of nausea or vomiting. Patient is less agitated today. No fever no chills. No cough or sputum production. INR improved to 2.0. Laboratory data reviewed. Anticipate discharge to rehab once bed is available. 11/29/2022 Patient is resting in the bed. Awake alert and oriented. Breathing status remains stable. Currently on room air. Patient will be continued on Seroquel 25 mg at bedtime and as when necessary. No fever no chills. No cough or sputum production. No other acute overnight issues. Patient completed antibiotic course for possible aspiration. Seen by cardiology due to acute CHF with preserved ejection fraction. Patient is being discharged to rehab today. - Exam -GENERAL: The patient is alert, awake looks more, but still confused, follows simple commands, not in any acute distress. Well developed, well nourished. HEENT: Pupils are round and equally reacting to light. EOMI. No scleral icterus. No conjunctival pallor. Normocephalic, atraumatic. No pharyngeal erythema. No thyromegaly. CARDIOVASCULAR: S1 and S2 present. No murmurs, rubs, or gallops. PULMONARY: Chest is clear to auscultation, no wheezing or crackles. ABDOMEN: Soft, nontender, nondistended, normoactive bowel sounds. No palpable organomegaly. MUSCULOSKELETAL: No joint swelling or deformity. EXTREMITIES: No cyanosis, clubbing, or pedal edema. NEUROLOGICAL: Gross neurological examination did not reveal any focal deficits. SKIN: No rashes. no petechiae. Vital Signs - 24 hr 11/28/22 11/28/22 11/28/22 14:00 20:00 23:08 Temperature 97.3 F L 98.3 F Pulse Rate [ 70 69 Pulse Oximetery ] Respiratory 16 20 Rate Blood Pressure 133/81 174/100 137/89 [Left Arm] O2 Sat by Pulse 95 97 Oximetry 11/29/22 11/29/22 11/29/22 02:00 08:00 08:37 Temperature 98.0 F 97.3 F L Pulse Rate [ 70 70 Pulse Oximetery ] Respiratory 16 17 Rate Blood Pressure 123/74 165/96 [Left Arm] O2 Sat by Pulse 94 L 93 L 95 Oximetry Total time taken greater than 35 minutes including 18 minutes for counseling and coordination of care. Patient Condition at Discharge: Stable Plan - Discharge Summary New Discharge Prescriptions: New Folic Acid 1 mg PO DAILY tab Gabapentin [Neurontin] 300 mg PO BID #6 cap QUEtiapine [SEROquel] 25 mg PO HS tab QUEtiapine [SEROquel] 25 mg PO DAILY PRN tab PRN Reason: Agitation Ipratropium-Albuterol Nebulize [Duoneb 0.5 mg-3 mg/3 ml Soln] 3 ml INHALATION RT-Q4H PRN each PRN Reason: shortness of breath Furosemide [Lasix] 20 mg PO DAILY tab Continue cilostazoL [Pletal] 100 mg PO BID Nitroglycerin Sl Tabs [Nitrostat] 0.4 mg SL Q5M PRN PRN Reason: Chest Pain Aspirin EC [Ecotrin Low Dose] 81 mg PO DAILY Metoprolol Tartrate [Lopressor] 25 mg PO BID #60 tablet Warfarin Sodium [Jantoven] 3.75 mg PO MOFR@2100 Rosuvastatin [Crestor] 20 mg PO HS Cyanocobalamin (Vitamin B-12) [Vitamin B-12] 1,000 mcg PO DAILY Fludrocortisone [Florinef] 0.05 mg PO MOWEFR Mupirocin 2% Oint [Bactroban 2% Oint] 1 applic TOPICAL BID traZODone HCL 75 mg PO HS Cholecalciferol [Vitamin D3 (25 Mcg = 1000 Iu)] 50 mcg PO DAILY Acetaminophen Tab [Tylenol] 1,000 mg PO BID Warfarin Sodium [Jantoven] 2.5 mg PO SUTUWETHSA@2100 Discontinued Gabapentin [Neurontin] 300 mg PO BID Discharge Medication List cilostazoL [Pletal] 100 mg PO BID 07/14/14 [History] Nitroglycerin Sl Tabs [Nitrostat] 0.4 mg SL Q5M PRN 07/18/14 [History] Aspirin EC [Ecotrin Low Dose] 81 mg PO DAILY 05/19/17 [History] Metoprolol Tartrate [Lopressor] 25 mg PO BID #60 tablet 09/30/20 [Rx] Acetaminophen Tab [Tylenol] 1,000 mg PO BID 11/19/22 [History] Cholecalciferol [Vitamin D3 (25 Mcg = 1000 Iu)] 50 mcg PO DAILY 11/19/22 [History] Cyanocobalamin (Vitamin B-12) [Vitamin B-12] 1,000 mcg PO DAILY 11/19/22 [History] Fludrocortisone [Florinef] 0.05 mg PO MOWEFR 11/19/22 [History] Mupirocin 2% Oint [Bactroban 2% Oint] 1 applic TOPICAL BID 11/19/22 [History] Rosuvastatin [Crestor] 20 mg PO HS 11/19/22 [History] Warfarin Sodium [Jantoven] 2.5 mg PO SUTUWETHSA@209911/19/22 [History] Warfarin Sodium [Jantoven] 3.75 mg PO MOFR@209911/19/22 [History] traZODone HCL 75 mg PO HS 11/19/22 [History] Folic Acid 1 mg PO DAILY tab 11/29/22 [Rx] Furosemide [Lasix] 20 mg PO DAILY tab 11/29/22 [Rx] Gabapentin [Neurontin] 300 mg PO BID #6 cap 11/29/22 [Rx] Ipratropium-Albuterol Nebulize [Duoneb 0.5 mg-3 mg/3 ml Soln] 3 ml INHALATION RT-Q4H PRN each 11/29/22 [Rx] QUEtiapine [SEROquel] 25 mg PO DAILY PRN tab 11/29/22 [Rx] QUEtiapine [SEROquel] 25 mg PO HS tab 11/29/22 [Rx] Follow up Appointment(s)/Referral(s): Rj Baca MD [Primary Care Provider] - 1-2 days Discharge Disposition: TRANSFER TO SNF/ECF
[2022-11-29] MEDS ORDERED: WARFARIN 2.5 MG TAB PO ONE (18:00)
== END 2022-11-29 14:31 | DRG 177 ==
LOC: EC 17:32 → 4SSUR 22:23
PROVIDERS: ADMIT Hospitalist; ATTEND Hospitalist
DX: J69.0 Pneumonitis due to inhalation of food and vomit (principal); G93.41 Metabolic encephalopathy; I50.31 Acute diastolic (congestive) heart failure; F03.92 Unspecified dementia, unspecified severity, with psychotic disturbance; F03.94 Unspecified dementia, unspecified severity, with anxiety; J98.11 Atelectasis; I73.9 Peripheral vascular disease, unspecified; N40.0 Benign prostatic hyperplasia without lower urinary tract symptoms; D69.6 Thrombocytopenia, unspecified; E78.5 Hyperlipidemia, unspecified; I11.0 Hypertensive heart disease with heart failure; I25.10 Atherosclerotic heart disease of native coronary artery without angina pectoris; I25.2 Old myocardial infarction; I48.0 Paroxysmal atrial fibrillation; I49.5 Sick sinus syndrome; S09.90XA Unspecified injury of head, initial encounter; W19.XXXA Unspecified fall, initial encounter; S62.92XD Unspecified fracture of left hand, subsequent encounter for fracture with routine healing; R42 Dizziness and giddiness; M54.31 Sciatica, right side; G89.29 Other chronic pain; Z20.822 Contact with and (suspected) exposure to COVID-19; Z79.01 Long term (current) use of anticoagulants; Z79.02 Long term (current) use of antithrombotics/antiplatelets; Z79.82 Long term (current) use of aspirin; Z79.899 Other long term (current) drug therapy; Z82.3 Family history of stroke; Z82.49 Family history of ischemic heart disease and other diseases of the circulatory system; Z87.891 Personal history of nicotine dependence; Z95.0 Presence of cardiac pacemaker; R45.1 Restlessness and agitation; Z71.3 Dietary counseling and surveillance; Z87.01 Personal history of pneumonia (recurrent); Z88.2 Allergy status to sulfonamides; Z88.8 Allergy status to other drugs, medicaments and biological substances
CPT/HCPCS: 36415; 70450; 71045; 71046; 71250; 80048; 80053; 80076; 80143; 80179; 80306; 80320; 81001; 82140; 82607; 82746; 83735; 83880; 84145; 84443; 84484; 85025; 85610; 85730; 87040; 87502; 87635; 93005; 93306; 94640; 94760; 95816; 96361; 96374; 99285

== ENCOUNTER 2022-12-15 01:24 | Emergency (ER) | payer MEDICARE ==
[2022-12-15 01:34] VITALS: BP 153/93; PULSE 70; RESP 16; TEMP 97.6
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
--- NOTE | 2022-12-15 02:08 | CT ---
EXAMINATION TYPE: CT brain chris wo con DATE OF EXAM: 12/15/2022 COMPARISON: 11/19/2022 HISTORY: FALL CT DLP: 1553.9 mGycm Automated exposure control for dose reduction was used. Images of the brain and cervical spine obtained with no contrast. There is cerebral cortical atrophy. There is no mass effect or midline shift. No sign of intracranial hemorrhage. The calvarium is intact. There is normal aeration of the mastoid sinuses. There is fluid level in the left maxillary sinus. The cervical vertebra have normal alignment. There is disc space narrowing at C4-5 and C5-6 and C6-7 with spurring of the endplates. No compression fracture. There is mild spurring of the facet joints. Prevertebral soft tissues are intact. The skull base is intact. IMPRESSION: Mild multilevel cervical spondylotic changes. No fracture. Cerebral atrophy. No acute intracranial abnormality. No change in the brain compared to the old exam.
--- NOTE | 2022-12-15 02:10 | XR ---
EXAMINATION TYPE: XR pelvis AP view DATE OF EXAM: 12/15/2022 COMPARISON: NONE HISTORY: Fall. Pain TECHNIQUE: 2 view FINDINGS: The pelvic ring is intact. Proximal femurs and hip joints are intact. Sacroiliac joints are intact IMPRESSION: Negative exam. No fracture.
--- NOTE | 2022-12-15 02:11 | XR ---
EXAMINATION TYPE: XR chest 1V DATE OF EXAM: 12/15/2022 COMPARISON: 11/21/2022 HISTORY: Fall. Pain TECHNIQUE: FINDINGS: There is a linear density right lung base. No heart failure. Heart size is normal. There is left axillary pacemaker. Bony thorax is intact IMPRESSION: There is some mild atelectasis right lung base. No heart failure. No significant change.
== END 2022-12-15 03:02 | disposition home or self-care (01) ==
LOC: EC 01:24
DX: M47.812 Spondylosis without myelopathy or radiculopathy, cervical region (principal); I25.10 Atherosclerotic heart disease of native coronary artery without angina pectoris; E78.5 Hyperlipidemia, unspecified; I10 Essential (primary) hypertension; I25.2 Old myocardial infarction; M19.90 Unspecified osteoarthritis, unspecified site; F41.9 Anxiety disorder, unspecified; Z87.891 Personal history of nicotine dependence; Z79.82 Long term (current) use of aspirin; Z79.899 Other long term (current) drug therapy; Z79.1 Long term (current) use of non-steroidal anti-inflammatories (NSAID); Z79.01 Long term (current) use of anticoagulants; Z88.5 Allergy status to narcotic agent; Z88.2 Allergy status to sulfonamides; Z88.8 Allergy status to other drugs, medicaments and biological substances; W01.0XXA Fall on same level from slipping, tripping and stumbling without subsequent striking against object, initial encounter; Y92.002 Bathroom of unspecified non-institutional (private) residence as the place of occurrence of the external cause
CPT/HCPCS: 70450; 71045; 72125; 72170; 99284

== ENCOUNTER 2023-03-15 12:37 | Emergency (ER) | payer MEDICARE ==
[2023-03-15] MEDS ORDERED: SODIUM CHLORIDE 0.9% 1,000 ML IV STA ×2 (14:10→14:13)
[2023-03-15 14:34] LABS: Basophils % (A) 0 %; Eosinophils # (A) 0.1 k/uL (0-0.7); Eosinophils % (A) 2 %; HGB 14.8 gm/dL (13.0-17.5); Lymphocytes # (A) 1.8 k/uL (1.0-4.8); Lymphocytes % (A) 31 %; MCH 31.4 pg (25.0-35.0); MCHC 34.5 g/dL (31.0-37.0); Mean Platelet Volume 8.1; Monocytes # (A) 0.4 k/uL (0-1.0); Monocytes % (A) 7 %; Neutrophils # (A) 3.4 k/uL (1.3-7.7); Neutrophils % (A) 57 %; Platelet Count 128 k/uL (150-450); RBC 4.73 m/uL (4.30-5.90); RDW 13.1 % (11.5-15.5)
[2023-03-15 14:39] LABS: Appearance,Urine Clear (Clear); Bilirubin,Urine Negative (Negative); Blood,Urine Negative (Negative); Color,Urine Yellow; Glucose,Urine (UA) Negative (Negative); Ketones,Urine Negative (Negative); Leukocyte Esterase,Urine Negative (Negative); Nitrite,Urine Negative (Negative); PH, Urine 6.5 (5.0-8.0); Protein,Urine Negative (Negative); Specific Gravity,Urine 1.012 (1.001-1.035); Urobilinogen,Urine <2.0 mg/dL (<2.0)
[2023-03-15 14:45] LABS: INR 1.1 (<1.2); Partial Thromboplastin Time 28.4 sec (22.0-30.0); Prothrombin Time 11.5 sec (9.0-12.0)
[2023-03-15 14:46] LABS: Albumin 3.7 g/dL (3.5-5.0); Calcium 8.9 mg/dL (8.4-10.2); Magnesium 2.4 mg/dL (1.6-2.3); Potassium 4.2 mmol/L (3.5-5.1); Total Bilirubin 0.7 mg/dL (0.2-1.3); Total Protein 6.3 g/dL (6.3-8.2)
[2023-03-15 15:42] VITALS: TEMP 96.9
--- NOTE | 2023-03-15 15:48 | XR ---
EXAMINATION TYPE: XR chest 2V DATE OF EXAM: 03/15/2023 2:59 PM COMPARISON: Chest x-ray 01/24/2023 TECHNIQUE: XR chest 2V . CLINICAL INDICATION:Male, 77 years old with history of syncope; FINDINGS: Lungs/Pleura: Bibasilar atelectasis, slightly progressed on the left from prior. No pneumothorax or p leural effusion. Hyperinflation changes noted. Pulmonary vascularity: Unremarkable. Heart/mediastinum: Cardiomediastinal silhouette is unremarkable. Two lead cardiac conduction device o verlying the left hemithorax with lead tips projecting over the right ventricle and right atrium. Musculoskeletal: No acute osseous pathology. IMPRESSION: 1. Bibasilar atelectasis, slightly progressed on the left. 2. COPD changes.
[2023-03-15 16:16] VITALS: RESP 17
[2023-03-15] MEDS ORDERED: METOPROLOL TARTRATE 25 MG TAB PO STA (16:17)
[2023-03-15 17:03] VITALS: BP 157/104; PULSE 78
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
== END 2023-03-15 17:32 | disposition home or self-care (01) ==
LOC: EC 12:37
DX: R55 Syncope and collapse (principal); I10 Essential (primary) hypertension; E86.0 Dehydration; I25.10 Atherosclerotic heart disease of native coronary artery without angina pectoris; E78.5 Hyperlipidemia, unspecified; I25.2 Old myocardial infarction; M19.90 Unspecified osteoarthritis, unspecified site; F41.9 Anxiety disorder, unspecified; Z87.891 Personal history of nicotine dependence; Z88.5 Allergy status to narcotic agent; Z88.2 Allergy status to sulfonamides; Z88.8 Allergy status to other drugs, medicaments and biological substances; Z79.82 Long term (current) use of aspirin; Z79.899 Other long term (current) drug therapy
CPT/HCPCS: 36415; 71046; 80053; 81003; 83735; 84484; 85025; 85610; 85730; 93005; 96360; 96361; 99285

== ENCOUNTER 2023-05-20 18:43 | Emergency (ER) | payer MEDICARE ==
[2023-05-20 18:48] VITALS: RESP 18
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
--- NOTE | 2023-05-20 20:32 | XR ---
EXAMINATION TYPE: XR chest 2V DATE OF EXAM: 05/20/2023 COMPARISON: 03/15/2023 HISTORY: 77-year-old male dizziness, fall TECHNIQUE: PA and lateral views FINDINGS: Heart mildly enlarged. Focal medial right basilar and left basilar opacities have a strandy configura tion suggesting atelectasis. Upper and mid lungs appear clear. No pleural effusion. Unchanged hyperos tosis at the right anterior first rib end. Left anterior chest wall pacemaker generator with right at rial and right ventricular leads. IMPRESSION: Mild cardiomegaly and similar focal bibasilar densities favored to represent areas of atelectasis. No acute process seen.
--- NOTE | 2023-05-20 20:38 | CT ---
EXAMINATION TYPE: CT brain cspine wo con DATE OF EXAM: 05/20/2023 COMPARISON: Brain 01/25/2023 HISTORY: 77-year-old male dizziness and recent falls CT DLP: 1308.4 mGycm Automated exposure control for dose reduction was used. Technique: Examination of the head was done in axial plane without intravenous contrast. Coronal and sagittal reconstructions performed. CT of the cervical spine was obtained in axial plane without intravenous injection of contrast mater ial. Coronal and sagittal reformatted images were obtained from the axial views for evaluation of f ractures, spinal alignment and canal. FINDINGS: Head: There is no evidence of acute intracranial hemorrhage, acute ischemic changes, mass, mass-effect, or extra-axial fluid collection. There is no effacement of cerebral sulci or basal subarachnoid cister ns. There is no hydrocephalus. There is no midline shift. May-white matter distinction is preserv ed. Mild cervical cortical volume loss. Atherosclerotic calcifications bilateral carotid siphons. Old lac unar infarct left basal ganglia. Leftward nasal septal deviation. Mild mucosal thickening throughout the ethmoid air cells. Mastoid ai r cells are pneumatized. Orbits and globes are intact. Cervical spine: No craniocervical junction of the body, predental space widening, or prevertebral soft tissue swellin g. Degenerative change of the C1 dens articulation. Advanced hypertrophic facet and uncovertebral joint arthropathy throughout. Prominent grade 1 anterolisthesis C3-C4 and C7-T1. Grade 1 retrolisthesis C4-C5 and C5-C6. Variable mild spinal canal narrowing throughout. Possibly more moderate at C6-C7 but assessment is li mited due to artifact from the patient's shoulders. No acute fracture seen of the cervical spine. Severe right neural foraminal stenosis. At C4 and on the left C6/C7. Additional variable moderate lor roforaminal stenoses throughout. Emphysematous change in the visualized upper lungs Sagittal and coronal reformatted images confirm above findings. COMBINED IMPRESSION: 1. Mild cerebral atrophy. Old lacunar infarct left basal ganglia. No acute intracranial abnormality s een. 2. No acute fracture of the cervical spine. Moderate to advanced multilevel spondylotic change. Degen erative grade 1 spondylolisthesis C3-C4, C4-C5, C5-C6, and C7-T1. 3. Mild chronic ethmoid sinus disease.
[2023-05-20 20:54] LABS: ALT 21 U/L (4-49); AST 25 U/L (17-59); African American GFR (CKD) 86 (>60 ml/min/1.73 sqM); Albumin 4.1 g/dL (3.5-5.0); Alkaline Phosphatase 62 U/L (38-126); Anion Gap 9 mmol/L; Blood Urea Nitrogen 12 mg/dL (9-20); Calcium 8.9 mg/dL (8.4-10.2); Carbon Dioxide 26 mmol/L (22-30); Chloride 105 mmol/L (98-107); Glucose 113 mg/dL (74-99); Non-African American GFR(CKD) 75 (>60 ml/min/1.73 sqM); Potassium 4.1 mmol/L (3.5-5.1); Sodium 140 mmol/L (137-145); Total Bilirubin 0.6 mg/dL (0.2-1.3); Total Protein 6.5 g/dL (6.3-8.2)
[2023-05-20 21:17] LABS: Basophils % (A) 0 %; Eosinophils # (A) 0.2 k/uL (0-0.7); Eosinophils % (A) 3 %; HCT 43.6 % (39.0-53.0); HGB 14.8 gm/dL (13.0-17.5); Lymphocytes # (A) 1.8 k/uL (1.0-4.8); Lymphocytes % (A) 30 %; MCH 30.4 pg (25.0-35.0); MCHC 33.9 g/dL (31.0-37.0); MCV 89.6 fL (80.0-100.0); Mean Platelet Volume 9.3; Monocytes # (A) 0.5 k/uL (0-1.0); Monocytes % (A) 8 %; Neutrophils # (A) 3.3 k/uL (1.3-7.7); Neutrophils % (A) 56 %; Platelet Count 124 k/uL (150-450); RBC 4.87 m/uL (4.30-5.90); RDW 13.3 % (11.5-15.5); WBC 5.9 k/uL (3.8-10.6)
[2023-05-20 22:12] LABS: Appearance,Urine Clear (Clear); Bilirubin,Urine Negative (Negative); Blood,Urine Negative (Negative); Color,Urine Light Yellow; Glucose,Urine (UA) Negative (Negative); Ketones,Urine Negative (Negative); Leukocyte Esterase,Urine Negative (Negative); Nitrite,Urine Negative (Negative); Protein,Urine Negative (Negative); Specific Gravity,Urine 1.007 (1.001-1.035); Urobilinogen,Urine <2.0 mg/dL (<2.0)
[2023-05-20 22:33] VITALS: BP 147/95; PULSE 72; TEMP 98.9
== END 2023-05-20 22:51 | disposition home or self-care (01) ==
LOC: EC 18:43
DX: F03.90 Unspecified dementia, unspecified severity, without behavioral disturbance, psychotic disturbance, mood disturbance, and anxiety (principal); M43.12 Spondylolisthesis, cervical region; M47.812 Spondylosis without myelopathy or radiculopathy, cervical region; J32.2 Chronic ethmoidal sinusitis; I51.7 Cardiomegaly; I25.10 Atherosclerotic heart disease of native coronary artery without angina pectoris; E78.5 Hyperlipidemia, unspecified; I10 Essential (primary) hypertension; I25.2 Old myocardial infarction; M19.90 Unspecified osteoarthritis, unspecified site; F41.9 Anxiety disorder, unspecified; Z87.891 Personal history of nicotine dependence; Z79.82 Long term (current) use of aspirin; Z79.1 Long term (current) use of non-steroidal anti-inflammatories (NSAID); Z79.899 Other long term (current) drug therapy; Z88.6 Allergy status to analgesic agent; Z88.2 Allergy status to sulfonamides; Z88.8 Allergy status to other drugs, medicaments and biological substances
CPT/HCPCS: 36415; 70450; 71046; 72125; 80053; 81003; 85025; 99285

== ENCOUNTER 2023-06-25 04:30 | Emergency (ER) | payer MEDICARE ==
[2023-06-25 04:36] VITALS: RESP 18; TEMP 97.8
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
--- NOTE | 2023-06-25 07:06 | CT ---
EXAM: CT Head Without Intravenous Contrast CLINICAL HISTORY: ITS.REASON CT Reason: fall TECHNIQUE: Axial computed tomography images of the head/brain without intravenous contrast. CTDI is 45.2 mGy and DLP is 1036 mGy-cm. This CT exam was performed using one or more of the following dose reduction techniques: automated exposure control, adjustment of the mA and/or kV according to patient size, and/or use of iterative reconstruction technique. COMPARISON: CT head performed 05/20/23 FINDINGS: Brain: No acute intracranial hemorrhage, mass-effect or midline shift. No major vascular territory infarct. Mild white matter disease. Ventricles: Unremarkable. No ventriculomegaly. Bones/joints: Unremarkable. No acute fracture. Soft tissues: Unremarkable. Sinuses: Unremarkable as visualized. No acute sinusitis. Mastoid air cells: Unremarkable as visualized. No mastoid effusion. IMPRESSION: No acute intracranial pathology. EXAM: CT Cervical Spine Without Intravenous Contrast CLINICAL HISTORY: ITS.REASON CT Reason: fall TECHNIQUE: Axial computed tomography images of the cervical spine without intravenous contrast. CTDI is 7.3 mGy and DLP is 221.8 mGy-cm. This CT exam was performed using one or more of the following dose reduction techniques: automated exposure control, adjustment of the mA and/or kV according to patient size, and/or use of iterative reconstruction technique. COMPARISON: CT cervical spine performed 05/20/23 FINDINGS: No acute fracture or traumatic subluxation. Multilevel cervical spondylosis grossly unchanged from prior. Spinal canal is patent. The prevertebral and paraspinal soft tissues are grossly unremarkable. Stable paraseptal emphysematous changes in the lung apices. IMPRESSION: No acute fracture or traumatic subluxation.
[2023-06-25 07:25] VITALS: BP 130/78; PULSE 72
== END 2023-06-25 07:25 | disposition home or self-care (01) ==
LOC: EC 04:30
DX: S01.511A Laceration without foreign body of lip, initial encounter (principal); I10 Essential (primary) hypertension; I25.10 Atherosclerotic heart disease of native coronary artery without angina pectoris; E78.5 Hyperlipidemia, unspecified; F41.9 Anxiety disorder, unspecified; I25.2 Old myocardial infarction; M19.90 Unspecified osteoarthritis, unspecified site; Z79.01 Long term (current) use of anticoagulants; Z79.02 Long term (current) use of antithrombotics/antiplatelets; Z79.82 Long term (current) use of aspirin; Z79.899 Other long term (current) drug therapy; Z88.2 Allergy status to sulfonamides; Z88.5 Allergy status to narcotic agent; Z88.8 Allergy status to other drugs, medicaments and biological substances; Z87.891 Personal history of nicotine dependence; W06.XXXA Fall from bed, initial encounter
CPT/HCPCS: 70450; 72125; 99283

== ENCOUNTER 2023-08-18 10:12 | Emergency (ER) | payer MEDICARE ==
[2023-08-18 10:37] VITALS: RESP 20; TEMP 98.1
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
[2023-08-18 11:35] VITALS: BP 113/78; PULSE 78
== END 2023-08-18 11:47 | disposition left against medical advice (07) ==
LOC: EC 10:12
DX: I16.0 Hypertensive urgency (principal); E78.5 Hyperlipidemia, unspecified; I10 Essential (primary) hypertension; M19.90 Unspecified osteoarthritis, unspecified site; I25.10 Atherosclerotic heart disease of native coronary artery without angina pectoris; I25.2 Old myocardial infarction; Z86.59 Personal history of other mental and behavioral disorders; Z87.891 Personal history of nicotine dependence; Z79.01 Long term (current) use of anticoagulants; Z79.1 Long term (current) use of non-steroidal anti-inflammatories (NSAID); Z79.82 Long term (current) use of aspirin; Z79.899 Other long term (current) drug therapy; Z88.6 Allergy status to analgesic agent; Z88.2 Allergy status to sulfonamides; Z88.5 Allergy status to narcotic agent; Z79.02 Long term (current) use of antithrombotics/antiplatelets; Z88.1 Allergy status to other antibiotic agents; Z88.8 Allergy status to other drugs, medicaments and biological substances; Z95.0 Presence of cardiac pacemaker; Z53.29 Procedure and treatment not carried out because of patient's decision for other reasons
CPT/HCPCS: 99283

== ENCOUNTER 2023-08-21 11:53 | Emergency (ER) | payer MEDICARE ==
--- NOTE | 2023-08-21 13:23 | XR ---
3 view cervical spine. DATE: 08/21/2023. COMPARISON: None available. CLINICAL HISTORY: Neck pain after fall. IMPRESSION: There is a grade 1 anterolisthesis of C3 on C4 which is likely secondary to degenerative facet arthro sneha at that level. There is otherwise straightening of the normal cervical lordosis. There is moderate to significant degenerative disc space narrowing C4-5, C5-6 and C6-7 with moderate multilevel degenerative facet and uncovertebral joint changes. There is no acute fracture identified. There is no prevertebral soft tissue swelling.
[2023-08-21 13:48] LABS: Appearance,Urine Clear (Clear); Bilirubin,Urine Negative (Negative); Blood,Urine Negative (Negative); Color,Urine Yellow; Glucose,Urine (UA) Negative (Negative); Ketones,Urine Negative (Negative); Leukocyte Esterase,Urine Negative (Negative); Nitrite,Urine Negative (Negative); PH, Urine 6.5 (5.0-8.0); Protein,Urine Trace (Negative); Specific Gravity,Urine 1.028 (1.001-1.035); Urobilinogen,Urine <2.0 mg/dL (<2.0)
[2023-08-21 13:57] LABS: Partial Thromboplastin Time 25.3 sec (22.0-30.0); Prothrombin Time 10.9 sec (9.0-12.0)
[2023-08-21 13:58] LABS: ALT 21 U/L (4-49); AST 28 U/L (17-59); African American GFR (CKD) 82 (>60 ml/min/1.73 sqM); Alkaline Phosphatase 66 U/L (38-126); Anion Gap 4 mmol/L; Blood Urea Nitrogen 19 mg/dL (9-20); Calcium 9.2 mg/dL (8.4-10.2); Carbon Dioxide 31 mmol/L (22-30); Chloride 105 mmol/L (98-107); Glucose 87 mg/dL (74-99); Magnesium 2.4 mg/dL (1.6-2.3); Non-African American GFR(CKD) 71 (>60 ml/min/1.73 sqM); Potassium 4.2 mmol/L (3.5-5.1); Sodium 140 mmol/L (137-145); Total Bilirubin 0.7 mg/dL (0.2-1.3); Total Protein 6.6 g/dL (6.3-8.2)
[2023-08-21 14:13] LABS: Basophils % (A) 0 %; Eosinophils # (A) 0.2 k/uL (0-0.7); Eosinophils % (A) 3 %; HGB 15.1 gm/dL (13.0-17.5); Lymphocytes # (A) 1.8 k/uL (1.0-4.8); Lymphocytes % (A) 27 %; MCH 31.9 pg (25.0-35.0); MCHC 34.4 g/dL (31.0-37.0); MCV 92.5 fL (80.0-100.0); Mean Platelet Volume 8.7; Monocytes # (A) 0.6 k/uL (0-1.0); Monocytes % (A) 9 %; Neutrophils # (A) 3.9 k/uL (1.3-7.7); Neutrophils % (A) 59 %; Platelet Count 137 k/uL (150-450); RBC 4.75 m/uL (4.30-5.90); RDW 13.2 % (11.5-15.5); WBC 6.5 k/uL (3.8-10.6)
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
[2023-08-21 15:25] VITALS: BP 124/86; PULSE 86; RESP 20; TEMP 98.9
== END 2023-08-21 14:56 | disposition home or self-care (01) ==
LOC: EC 11:53
DX: R55 Syncope and collapse (principal); I25.10 Atherosclerotic heart disease of native coronary artery without angina pectoris; I10 Essential (primary) hypertension; E78.5 Hyperlipidemia, unspecified; I25.2 Old myocardial infarction; I48.91 Unspecified atrial fibrillation; F41.9 Anxiety disorder, unspecified; Z87.891 Personal history of nicotine dependence; Z88.5 Allergy status to narcotic agent; Z88.2 Allergy status to sulfonamides; Z88.8 Allergy status to other drugs, medicaments and biological substances; Z79.82 Long term (current) use of aspirin; Z79.01 Long term (current) use of anticoagulants; Z79.899 Other long term (current) drug therapy
CPT/HCPCS: 36415; 72040; 80053; 81003; 83735; 84484; 85025; 85610; 85730; 93005; 99285

== ENCOUNTER 2023-12-02 17:45 | Emergency (ER) | payer MEDICARE ==
[2023-12-02 18:12] VITALS: PULSE 70; RESP 14; TEMP 97.4
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
[2023-12-02 20:01] LABS: Basophils % (A) 0 %; Eosinophils # (A) 0.1 k/uL (0-0.7); Eosinophils % (A) 2 %; HCT 42.1 % (39.0-53.0); HGB 14.4 gm/dL (13.0-17.5); Lymphocytes # (A) 1.8 k/uL (1.0-4.8); Lymphocytes % (A) 28 %; MCH 31.3 pg (25.0-35.0); MCHC 34.3 g/dL (31.0-37.0); MCV 91.4 fL (80.0-100.0); Mean Platelet Volume 8.7; Monocytes # (A) 0.5 k/uL (0-1.0); Monocytes % (A) 8 %; Neutrophils # (A) 3.8 k/uL (1.3-7.7); Neutrophils % (A) 59 %; Platelet Count 148 k/uL (150-450); RBC 4.61 m/uL (4.30-5.90); WBC 6.4 k/uL (3.8-10.6)
[2023-12-02 20:10] LABS: INR 1.4 (<1.2); Partial Thromboplastin Time 31.3 sec (22.0-30.0); Prothrombin Time 14.9 sec (10.0-12.5)
[2023-12-02 20:13] LABS: ALT 19 U/L (4-49); AST 22 U/L (17-59); African American GFR (CKD) 79 (>60 ml/min/1.73 sqM); Albumin 3.6 g/dL (3.5-5.0); Alkaline Phosphatase 76 U/L (38-126); Anion Gap 9 mmol/L; Blood Urea Nitrogen 21 mg/dL (9-20); Calcium 8.9 mg/dL (8.4-10.2); Carbon Dioxide 25 mmol/L (22-30); Chloride 104 mmol/L (98-107); Glucose 84 mg/dL (74-99); Magnesium 2.3 mg/dL (1.6-2.3); Non-African American GFR(CKD) 69 (>60 ml/min/1.73 sqM); Potassium 3.9 mmol/L (3.5-5.1); Sodium 138 mmol/L (137-145); Total Bilirubin 0.5 mg/dL (0.2-1.3); Total Protein 6.1 g/dL (6.3-8.2)
--- NOTE | 2023-12-02 20:13 | XR ---
EXAMINATION TYPE: XR chest 2V DATE OF EXAM: 12/02/2023 6:49 PM CLINICAL INDICATION:Male, 78 years old with history of ams; [facility] COMPARISON: Chest radiographs from 05/20/2023 TECHNIQUE: XR chest 2V Frontal and lateral views of the chest. FINDINGS: Lungs/Pleura: There is no evidence of pleural effusion, focal consolidation, or pneumothorax. Pulmonary vascularity: Pulmonary vascular congestion. Heart/mediastinum: Cardiomediastinal silhouette is enlarged and stable. Two lead cardiac conduction d evice overlying the left hemithorax with lead tips projecting over the right ventricle and right atri um. Musculoskeletal: No acute osseous pathology. IMPRESSION: Low lung volumes with a generalized hazy appearance which could represent atelectasis versus pulmonar y edema correlate with serum BNP.
--- NOTE | 2023-12-02 20:28 | CT ---
EXAMINATION TYPE: CT brain wo con DATE OF EXAM: 12/02/2023 COMPARISON: 06/25/2023 INDICATION: confusion, ams DLP: 1102.4 mGycm, Automated exposure control for dose reduction was used. CONTRAST: None CT of the brain is performed utilizing 3 mm thick sections through the posterior fossa and 3 mm thick sections through the remaining calvarium. Study is performed within 24 hours of arrival to the hosp ital. No abnormal hyperdensity is present to suggest an acute intracranial hemorrhage. No mass lesion is evident. No acute infarcts are evident. Ventricles and sulci are appropriate for the patient age. Paranasal sinuses and mastoid air cells within the [id number] are clear. IMPRESSION: 1. No acute intracranial process. Follow-up MRI can be performed as clinically indicated
[2023-12-02 22:08] VITALS: BP 130/83
== END 2023-12-02 22:02 | disposition home or self-care (01) ==
LOC: EC 17:45
DX: R41.82 Altered mental status, unspecified (principal); E78.5 Hyperlipidemia, unspecified; I25.10 Atherosclerotic heart disease of native coronary artery without angina pectoris; I10 Essential (primary) hypertension; I25.2 Old myocardial infarction; F41.9 Anxiety disorder, unspecified; Z87.891 Personal history of nicotine dependence; Z79.82 Long term (current) use of aspirin; Z79.01 Long term (current) use of anticoagulants; Z79.899 Other long term (current) drug therapy; Z88.2 Allergy status to sulfonamides; Z88.5 Allergy status to narcotic agent; Z20.822 Contact with and (suspected) exposure to COVID-19
CPT/HCPCS: 36415; 70450; 71046; 80053; 83605; 83735; 84484; 85025; 85610; 85730; 87636; 93005; 99284; 99285

== ENCOUNTER 2024-01-15 14:36 | Observation (INO) | payer MEDICARE ==
[2024-01-15 15:40] LABS: Basophils % (A) 0 %; Eosinophils # (A) 0.1 k/uL (0-0.7); Eosinophils % (A) 2 %; HCT 43.5 % (39.0-53.0); HGB 14.6 gm/dL (13.0-17.5); Lymphocytes # (A) 1.8 k/uL (1.0-4.8); Lymphocytes % (A) 21 %; MCH 30.9 pg (25.0-35.0); MCHC 33.5 g/dL (31.0-37.0); MCV 92.3 fL (80.0-100.0); Mean Platelet Volume 8.3; Monocytes # (A) 0.7 k/uL (0-1.0); Monocytes % (A) 8 %; Neutrophils # (A) 5.8 k/uL (1.3-7.7); Neutrophils % (A) 68 %; Platelet Count 136 k/uL (150-450); RBC 4.71 m/uL (4.30-5.90); RDW 12.8 % (11.5-15.5); WBC 8.5 k/uL (3.8-10.6)
[2024-01-15 15:53] LABS: ALT 17 U/L (4-49); AST 22 U/L (17-59); African American GFR (CKD) 90 (>60 ml/min/1.73 sqM); Albumin 3.5 g/dL (3.5-5.0); Alkaline Phosphatase 89 U/L (38-126); Anion Gap 7 mmol/L; Blood Urea Nitrogen 15 mg/dL (9-20); Calcium 8.6 mg/dL (8.4-10.2); Carbon Dioxide 25 mmol/L (22-30); Chloride 108 mmol/L (98-107); Glucose 169 mg/dL (74-99); Lipase 50 U/L (23-300); Non-African American GFR(CKD) 78 (>60 ml/min/1.73 sqM); Potassium 3.8 mmol/L (3.5-5.1); Sodium 140 mmol/L (137-145); Total Bilirubin 0.5 mg/dL (0.2-1.3); Total Protein 5.8 g/dL (6.3-8.2)
[2024-01-15 15:55] LABS: INR 1.3 (<1.2); Partial Thromboplastin Time 34.8 sec (22.0-30.0); Prothrombin Time 13.2 sec (10.0-12.5)
--- NOTE | 2024-01-15 16:25 | XR ---
EXAMINATION TYPE: XR chest 2V DATE OF EXAM: 01/15/2024 COMPARISON: NONE HISTORY: Cough with chest pain. TECHNIQUE: Frontal and lateral views of the chest are obtained. FINDINGS: Left-sided dual-lead pacemaker is unchanged. The cardiac silhouette is mildly enlarged the re are scattered mild interstitial changes which is likely related to mild edema. IMPRESSION: Cardiomegaly with suspected mild edema.
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
[2024-01-15 18:09] LABS: Appearance,Urine Clear (Clear); Bilirubin,Urine Negative (Negative); Blood,Urine Negative (Negative); Color,Urine Yellow; Glucose,Urine (UA) 2+ (Negative); Ketones,Urine Negative (Negative); Leukocyte Esterase,Urine Negative (Negative); Nitrite,Urine Negative (Negative); Protein,Urine Negative (Negative); Specific Gravity,Urine 1.022 (1.001-1.035); Urobilinogen,Urine <2.0 mg/dL (<2.0)
[2024-01-15] MEDS ORDERED: NALOXONE 0.4 MG/ML 1 ML VIAL IV PRN (18:10)
[2024-01-15] MEDS: ATORVASTATIN 40 MG TAB PO SCH (20:08)
[2024-01-15] MEDS: ACETAMINOPHEN TAB 325 MG TAB PO SCH (20:12)
[2024-01-15] MEDS: MULTIVITAMINS, THERA 1 EACH TAB PO SCH (20:13)
[2024-01-15] MEDS: traZODone HCL 100 MG TAB PO SCH (20:13)
[2024-01-15] MEDS: GABAPENTIN 300 MG CAP PO SCH (20:13)
[2024-01-15] MEDS: METOPROLOL TARTRATE 25 MG TAB PO SCH (20:13)
[2024-01-16] MEDS: cilostazoL 100 MG TAB PO SCH (00:26)
[2024-01-16] MEDS: ASPIRIN 81 MG PO SCH (09:41)
[2024-01-16] MEDS: LORATADINE 10 MG TAB PO SCH (09:42)
[2024-01-16] MEDS: RIVAROXABAN 20 MG TAB PO SCH (09:43)
[2024-01-16] MEDS: CYANOCOBALAMIN 500 MCG TAB PO SCH (09:43)
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
[2024-01-16] MEDS: FLUDROCORTISONE 0.1 MG TAB PO SCH (10:56)
[2024-01-16 11:10] LABS: Basophils # (A) 0.02 X 10*3/uL (0.00-0.10); Basophils % (A) 0.2 %; Eosinophils # (A) 0.05 X 10*3/uL (0.04-0.35); Eosinophils % (A) 0.6 %; HCT 41.7 % (39.6-50.0); HGB 14.2 g/dL (13.0-17.0); Lymphocytes # (A) 1.65 X 10*3/uL (0.90-5.00); Lymphocytes % (A) 19.1 %; MCH 30.6 pg (27.0-32.0); MCHC 34.1 g/dL (32.0-37.0); MCV 89.9 FL (80.0-97.0); Mean Platelet Volume 10.9 FL (9.5-12.2); Monocytes # (A) 0.89 X 10*3/uL (0.20-1.00); Monocytes % (A) 10.3 %; NRBC Per 100 WBC 0 X 10*3/uL (0.00-0.01); Neutrophils % (A) 69.5 %; Platelet Count 140 X 10*3/uL (140-440); RBC 4.64 X 10*6/uL (4.40-5.60); RDW 12.9 % (11.5-14.5); WBC 8.64 X 10*3/uL (4.50-10.00)
[2024-01-16 11:19] LABS: BUN/Creat Ratio 9.82 Ratio (12.00-20.00); Blood Urea Nitrogen 10.8 mg/dL (9.0-27.0); Calcium 8.7 mg/dL (8.7-10.3); Carbon Dioxide 26.6 mmol/L (21.6-31.8); Chloride 106 mmol/L (96-109); Glucose 131 mg/dL (70-110); Potassium 4.1 mmol/L (3.5-5.5); Sodium 141 mmol/L (135-145)
[2024-01-16] MEDS: DULoxetine HCL 30 MG CAPSULE.DR PO SCH (13:05)
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
--- NOTE | 2024-01-16 16:52 | XR ---
EXAMINATION TYPE: XR abdomen 1V DATE OF EXAM: 01/16/2024 4:42 PM CLINICAL INDICATION:Male, 78 years old with history of right side abdominal pain; COMPARISON: None. TECHNIQUE: One radiographic view of the abdomen was obtained. FINDINGS: Gaseous dilation of bowel throughout the abdomen. The bowel gas pattern is nonspecific with out dilated loops of small or large bowel. There is no evidence for organomegaly or pneumoperitoneum. The osseous structures are intact. No abnormal calcifications are present. Fecal material and gas are demonstrated throughout the colon and rectum. Mild degeneration changes of the hips bilaterally. Multilevel degeneration changes of the spine. IMPRESSION: Gaseous dilation of bowel, no evidence for obstruction.
--- NOTE | 2024-01-16 16:56 | CA ---
Transthoracic Echo Report Name: Armond Rosario Age: 78 Gender: M : 1945 Exam Date: 01/16/2024 16:10 Exam Location: [facility] Ht (in): 70 Wt (lb): 190 Ordering Physician: Ruba Lawrence Attending/Referring Phys: [id number], [employer] Scientific Programmer Analyst Bryan Olivera RD Procedure CPT: Indications: LV function, questionable syncope Cardiac Hx: Technical Quality: Fair Contrast 1: Total Dose (mL): Contrast 2: Total Dose (mL): MEASUREMENTS (Male / Female) Normal Values 2D ECHO LV Diastolic Diameter PLAX 5.2 cm 4.2 - 5.9 / 3.9 - 5.3 cm IVS Diastolic Thickness 1.5 cm 0.6 - 1.0 / 0.6 - 0.9 cm LVPW Diastolic Thickness 1.6 cm 0.6 - 1.0 / 0.6 - 0.9 cm LV Relative Wall Thickness 0.6 RV Internal Dim ED PLAX 3.5 cm LVOT Diameter 2.4 cm Aortic Root Diameter 3.4 cm LA Systolic Diameter LX 4.1 cm 3.0 - 4.0 / 2.7 - 3.8 cm LV Diastolic Volume MOD BP 61.2 cm??? 67 - 155 / 56 - 104 cm??? LV Systolic Volume MOD BP 26.6 cm??? 22 - 58 / 19 - 49 cm??? LV Ejection Fraction MOD BP 56.5 % >= 55 % LV Cardiac Index MOD BP 1197.2 cm???/min???m??? LV Diastolic Volume MOD 4C 45.5 cm??? LV Systolic Volume MOD 4C 20.6 cm??? LV Ejection Fraction MOD 4C 54.6 % LV Cardiac Index MOD 4C 861.0 cm???/min???m??? LV Diastolic Length 4C 6.2 cm LV Systolic Length 4C 6.2 cm LV Diastolic Volume MOD 2C 71.9 cm??? LV Systolic Volume MOD 2C 31.1 cm??? LV Ejection Fraction MOD 2C 56.7 % LV Cardiac Index MOD 2C 1411.4 cm???/min???m??? LV Diastolic Length 2C 7.2 cm LV Systolic Length 2C 7.0 cm LA Volume 83.7 cm??? 18 - 58 / 22 - 52 cm??? LA Volume Index 40.3 cm???/m??? 16 - 28 cm???/m??? DOPPLER AV Peak Velocity 105.0 cm/s AV Peak Gradient 4.4 mmHg AV Mean Velocity 72.9 cm/s AV Mean Gradient 2.5 mmHg AV Velocity Time Integral 20.4 cm AI Peak Velocity 295.7 cm/s AI Peak Gradient 35.0 mmHg AI Pressure Half Time 599.2 ms LVOT Peak Velocity 74.7 cm/s LVOT Peak Gradient 2.2 mmHg LVOT Velocity Time Integral 12.9 cm LVOT Stroke Volume 60.5 cm??? LVOT Stroke Volume Index 29.6 ml/m??? LVOT Cardiac Index 2094.8 cm???/min???m??? AV Area Cont Eq vti 3.0 cm??? AV Area Cont Eq pk 3.3 cm??? MV Peak Velocity 77.2 cm/s MV Peak Gradient 2.4 mmHg MV Mean Velocity 35.5 cm/s MV Mean Gradient 0.7 mmHg MV Velocity Time Integral 17.3 cm MR Peak Velocity 310.5 cm/s MR Peak Gradient 38.6 mmHg Mitral E Point Velocity 79.9 cm/s Mitral A Point Velocity 27.6 cm/s Mitral E to A Ratio 2.9 MV Deceleration Time 173.3 ms TR Peak Velocity 255.1 cm/s TR Peak Gradient 26.0 mmHg Right Ventricular Systolic Press 31.0 mmHg PV Peak Velocity 75.9 cm/s PV Peak Gradient 2.3 mmHg FINDINGS Left Ventricle Normal LV size. Moderate concentric LVH. Left ventricular ejection fraction is estimated at 50-55 %. Right Ventricle Normal right ventricular size. RVSP= 31mmHg. Right Atrium Normal right atrial size. Left Atrium Moderate left atrial dilatation. LA volume index= 41ml/m2 Mitral Valve Structurally normal mitral valve. Mild MR. Aortic Valve Trileaflet aortic valve. Mild calcification/sclerosis. Tricuspid Valve Structurally normal tricuspid valve. Mild to moderate TR. Pulmonic Valve Pulmonic valve not well visualized. No pulmonic regurgitation. Pericardium Not well visualized. Aorta Normal size aortic root. CONCLUSIONS Moderate increased left ventricular wall thickness Left ventricular ejection fraction 50-55% RVSP 31 Mild mitral regurgitation Mild to moderate tricuspid regurgitation Previewed by: Dr. Juan Keller DO (Electronically Signed) Final Date: 16 January 2024 16:56
[2024-01-17 08:01] VITALS: PULSE 70; RESP 15
--- NOTE | 2024-01-17 09:37 | P.PN ---
Subjective HISTORY OF PRESENT ILLNESS: This is a 78-year-old male with a past medical history significant for paroxysmal atrial fibrillation, sick sinus syndrome, orthostatic hypotension, hypertension, hyperlipidemia, mild coronary artery disease, and peripheral vascular disease. Patient follows in the office with Dr. Cowan. We have been asked to see the patient in consultation for syncope. Patient examined at the bedside in the emergency room. Patient's daughter is present. Patient's daughter providing majority of the history. She states the patient has advanced dementia and she has been caring for the patient at home for the past 2 years. Apparently, yesterday the patient was sitting in his chair when he grabbed the right side of his abdomen and started complaining of severe pain. She states that he then slouched over continuing to hold his abdomen in pain. She states that when he lifted his head back up his lips were purple. She states that he never lost consciousness and was responsive to her the entire time. She states that her dad never complains of pain so this was very unusual for him. She states that he has not been complaining of any chest pain or pressure. He has had no complaints of shortness of breath. She states he has not had any dizziness or lightheadedness. She reports difficulty with ambulating has been chronic and states that he uses a wheelchair and a walker with a belt. The daughter is also concerned because the patient has been drinking a lot of fluid lately but has only been urinating a very small amount and on many occasions it is very dark. DIAGNOSTICS: - EKG reveals paced rhythm. - Chest xray cardiomegaly with suspected mild edema. - Laboratory data: WBC 8.5. Hemoglobin 14.6. Platelet count 136. INR 1.3. D- dimer 0.41. Sodium 140. Potassium 3.8. BUN 15. Creatinine 0.93. Troponin negative x 3 - Current home cardiac medications include Pletal 100 mg twice a day, aspirin 81 mg daily, Xarelto 20 mg daily, metoprolol tartrate 25 mg twice a day, and Florinef 0.5 mg Friday twice a day. - Most recent echocardiogram obtained in October 2022 revealing ejection f raction 55%, mild MR, mild TR - Patient underwent Lexiscan stress test in May 2021 which was negative for ischemia 01/17/2024 Patient examined this morning at the bedside. Patient is awake but slightly confused. There is no family present. Patient denies any chest pain or pressure. He denies any shortness of breath. He does report back pain at the time of examination. Echocardiogram completed revealing ejection fraction 50 to 55% with mild MR, and mild to moderate TR. PHYSICAL EXAM: VITAL SIGNS: Reviewed. GENERAL: Well-developed in no acute distress. HEENT: Head is normocephalic. Pupils are equal, round. Sclerae anicteric. Mucous membranes of the mouth are moist. Neck supple. No JVD or thyromegaly LUNGS: Respirations even and unlabored. Lungs essentially clear to auscultation bilaterally. HEART: Regular rate and rhythm. S1 and S2 heard. Soft systolic murmur noted. ABDOMEN: Soft. Nondistended. Nontender. EXTREMITIES: Normal range of motion. No clubbing or cyanosis. Peripheral pulses intact. No lower extremity edema NEUROLOGIC: Lethargic ASSESSMENT: Right-sided abdominal pain, Etiology unclear Questionable syncopal episode, patient's daughter denies patient had loss of consciousness Paroxysmal atrial fibrillation, on Xarelto History of sick sinus syndrome with dual-chamber pacemaker implantation, 2017 Mild coronary artery disease, details unknown Peripheral vascular disease, on Pletal outpatient Hypertension Hyperlipidemia History of orthostatic hypotension Dementia PLAN: Continue telemetry monitoring to assess for any arrhythmias Continue current cardiac medications Patient's pacemaker has yet to be interrogated. Nursing to interrogate device this morning. If interrogation does not reveal any significant abnormalities, patient may be discharged from a cardiac perspective Further recommendations pending patient course Nurse practitioner note has been reviewed by physician. Signing provider agrees with the documented findings, assessment, and plan of care documented by PROSECUTING ATTORNEY as a scribe. Objective - Vital Signs Vital signs: Vital Signs Temp 97.6 F 01/17/24 07:00 Pulse 70 01/17/24 07:00 Resp 15 01/17/24 07:00 BP 165/94 01/17/24 07:00 Pulse Ox 94 L 01/17/24 07:00 FiO2 Intake & Output 01/16/24 01/17/24 01/17/24 18:59 06:59 18:59 Intake Total 100 Output Total 350 Balance 100 -350 Weight 86.183 kg Intake: Oral 100 Output: Urine 350 Other: Voiding Method Toilet # Voids 1 1 # Bowel Movements 1 - Labs CBC & Chem 7: 01/16/24 07:24 01/16/24 07:24 Labs: Abnormal Lab Results - Last 24 Hours (Table) 01/16/24 Range/Units 07:24 BUN/Creatinine Ratio 9.82 L (12.00-20.00) Ratio Glucose 131 H (70-110) mg/dL
[2024-01-17 15:36] VITALS: BP 127/79; TEMP 97.3
--- NOTE | 2024-01-18 16:53 | P.DS ---
Providers Date of admission: 01/15/24 18:12 Attending physician: Viola Roamn Consults: 01/15/24 18:10 Consult Physician Urgent Consulting Provider: [facility] Consult Reason/Comments: acute chest pain, syncope Do you want consulting provider notified?: Yes Primary care physician: Rj Baca Hospital Course: Final Diagonsis Chest pain, ruled out ACS Right side abdominal pain episode that has resolved Possible syncopal episode as patient was unresponsive per family, likely vasovagal response, pace maker has been interrogated and no findings of Vtach Hypertension history History of chest pain/angina Hyperlipidemia History of coronary artery disease with sick sinus syndrome, status post permanent pacemaker placement History of syncope with orthostatic hypotension History of vertigo History of dementia Anxiety history Former smoker GI prophylaxis DVT prophylaxis Full code Discharge disposition Patient is considered stable for discharge home with family. His pacemaker has been interrogated and discussed with cardiology and he will follow-up in the office with his accounting system expert. There was no reportable events that attributed to the syncopal event this was likely a vasovagal response. Patient states that his diarrhea has resolved he has been up ambulating no dizziness or lightheadedness noted. He will continue all same home medications he has also been started on Cymbalta. Recommend to repeat a basic metabolic panel in 2 to 3 days. Patient should follow-up with his PCP Dr. Baca. Hospital course This is a 78-year-old male who presented to the emergency department with via EMS as family reports patient was having some right-sided chest wall pain and upper quadrant pain and slumped forward and became unresponsive. Per daughters who live with him reported he was unresponsive and 911 was called. When EMS arrived vital signs were stable and was responsive to them abdominal pain had subsided and patient was brought to the ER for further evaluation. Patient f ollows with Dr. Baca in the outpatient setting with a past medical history of coronary artery disease, chest pain/angina, hyperlipidemia, hypertension, myocardial infarction with pacemaker previously, osteoarthritis, prostate disorder, history of syncope and dementia. Also with history of sick sinus syndrome and permanent pacemaker placement. EKG showed electronic ventricular pacemaker with a beats of 70 bpm, chest x-ray was obtained showing cardiomegaly with suspected mild edema, labs reviewed showing a normal CBC, platelets slightly low at 136, D-dimer was 0.41, INR 1.3, sodium 140 with a potassium of 3.8, creatinine 0.93, random glucose was 169, troponins x 3 have been negative and lipase was negative including urinalysis that was negative. Patient was admitted under observation with Cardiology on consult. Pacemaker was interrogated no arrhythmia noted to suggest a cause of his syncopal event. His blood work remains within normal limits. His troponin levels have been negative x 3. He has been cleared by cardiology to follow-up in the office. No chest pain or shortness of breath noted no dizziness or lightheadedness. Please see medication reconciliation for list of current medication. Thank you for allowing us to participate in the care of patient. The impression and plan of care has been dictated by Tete Quiñonez, Nurse Practitioner as directed. Dr. Noah MD I have performed a history and physical examination and medical decision making of this patient, discussed the same with the dictator, and agree with the dictators assessment and plan as written, documented as a scribe. Based on total visit time, I have performed more than 50% of this visit. Patient Condition at Discharge: Stable Plan - Discharge Summary Discharge Rx Participant: No New Discharge Prescriptions: New DULoxetine HCL [Cymbalta] 30 mg PO DAILY #30 cap Continue cilostazoL [Pletal] 100 mg PO BID Aspirin EC [Ecotrin Low Dose] 81 mg PO DAILY Metoprolol Tartrate [Lopressor] 25 mg PO BID #60 tablet Cyanocobalamin (Vitamin B-12) [Vitamin B-12] 1,000 mcg PO DAILY Fludrocortisone [Florinef] 0.05 mg PO MOWEFR@0900,2100 Gabapentin [Neurontin] 300 mg PO BID #6 cap Rivaroxaban [Xarelto] 20 mg PO DAILY Mv-Min/Folic/K1/Lycopen/Lutein [Centrum Silver Men Tablet] 1 tab PO HS Atorvastatin Calcium [Lipitor] 40 mg PO HS Acetaminophen [Tylenol Arthritis] 650 mg PO BID traZODone HCL [Desyrel] 100 mg PO HS Loratadine [Claritin] 10 mg PO DAILY Discharge Medication List cilostazoL [Pletal] 100 mg PO BID 07/14/14 [History] Aspirin EC [Ecotrin Low Dose] 81 mg PO DAILY 05/19/17 [History] Metoprolol Tartrate [Lopressor] 25 mg PO BID #60 tablet 09/30/20 [Rx] Cyanocobalamin (Vitamin B-12) [Vitamin B-12] 1,000 mcg PO DAILY 11/19/22 [History] Fludrocortisone [Florinef] 0.05 mg PO MOWEFR@0900,2100 11/19/22 [History] Gabapentin [Neurontin] 300 mg PO BID #6 cap 11/29/22 [Rx] Acetaminophen [Tylenol Arthritis] 650 mg PO BID 01/24/23 [History] Atorvastatin Calcium [Lipitor] 40 mg PO HS 01/24/23 [History] traZODone HCL [Desyrel] 100 mg PO HS 05/20/23 [History] Loratadine [Claritin] 10 mg PO DAILY 12/02/23 [History] Rivaroxaban [Xarelto] 20 mg PO DAILY 12/02/23 [History] Mv-Min/Folic/K1/Lycopen/Lutein [Centrum Silver Men Tablet] 1 tab PO HS 01/15/24 [History] DULoxetine HCL [Cymbalta] 30 mg PO DAILY #30 cap 01/17/24 [Rx] Follow up Appointment(s)/Referral(s): None,Stated [REFERRING] - 1-2 days Rj Baca MD [Primary Care Provider] - 1-2 Days Devon Cowan MD [STAFF PHYSICIAN] - 1 Week Ambulatory/Diagnostic Orders: Basic Metabolic Panel [LAB.AMB] Time Frame: 3 Days, Location: None Selected Patient Instructions/Handouts: Chest Pain (GEN), Syncope (GEN), Bradycardia (GEN) Activity/Diet/Wound Care/Special Instructions: Follow up with your accounting system expert on discharge. Recommending to repeat BMP in 2 to 3 days. Discharge Disposition: HOME WITH HOME HEALTH SERVICES
== END 2024-01-17 18:07 | disposition home health service (06) ==
LOC: EC 14:36 → 6NMEDSUR 18:12 → INTOOBSV 18:12 → OBSVTOIN 18:12 → 6NMEDSUR 23:52 → UNDODISIN 01-17 18:07 → UNDODISOB 01-17 18:07
PROVIDERS: ADMIT Hospitalist; ATTEND Hospitalist
DX: R07.89 Other chest pain (principal); R10.9 Unspecified abdominal pain; I48.0 Paroxysmal atrial fibrillation; I10 Essential (primary) hypertension; E78.5 Hyperlipidemia, unspecified; I25.10 Atherosclerotic heart disease of native coronary artery without angina pectoris; I73.9 Peripheral vascular disease, unspecified; F03.90 Unspecified dementia, unspecified severity, without behavioral disturbance, psychotic disturbance, mood disturbance, and anxiety; F41.9 Anxiety disorder, unspecified; I95.1 Orthostatic hypotension; N40.0 Benign prostatic hyperplasia without lower urinary tract symptoms; G89.29 Other chronic pain; M54.50 Low back pain, unspecified; I25.2 Old myocardial infarction; Z87.891 Personal history of nicotine dependence; Z95.0 Presence of cardiac pacemaker; Z79.01 Long term (current) use of anticoagulants; Z79.899 Other long term (current) drug therapy; Z79.82 Long term (current) use of aspirin; Z88.5 Allergy status to narcotic agent; Z88.2 Allergy status to sulfonamides
CPT/HCPCS: 99285; 36415; 93005; 93306; 85379; 80053; 80048; 83690; 84484 ×2; 85025 ×2; 85610; 85730; 81003; 71046; 74018; G0378 ×3

== ENCOUNTER 2024-04-07 10:09 | Emergency (ER) | payer MEDICARE ==
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
[2024-04-07 10:39] VITALS: RESP 18; TEMP 97.9
[2024-04-07 12:12] LABS: Basophils % (A) 0 %; Eosinophils # (A) 0.1 k/uL (0-0.7); Eosinophils % (A) 1 %; HCT 46.7 % (39.0-53.0); HGB 15.7 gm/dL (13.0-17.5); Lymphocytes # (A) 1.6 k/uL (1.0-4.8); Lymphocytes % (A) 19 %; MCH 30.4 pg (25.0-35.0); MCHC 33.5 g/dL (31.0-37.0); MCV 90.8 fL (80.0-100.0); Mean Platelet Volume 8.6; Monocytes # (A) 0.6 k/uL (0-1.0); Monocytes % (A) 7 %; Neutrophils # (A) 6.1 k/uL (1.3-7.7); Neutrophils % (A) 71 %; Platelet Count 202 k/uL (150-450); RBC 5.14 m/uL (4.30-5.90); RDW 13.1 % (11.5-15.5); WBC 8.5 k/uL (3.8-10.6)
[2024-04-07] MEDS: SODIUM CHLORIDE 0.9% 1,000 ML IV STA (12:18)
[2024-04-07 12:20] LABS: ALT 15 U/L (4-49); AST 24 U/L (17-59); African American GFR (CKD) >90 (>60 ml/min/1.73 sqM); Albumin 3.6 g/dL (3.5-5.0); Alkaline Phosphatase 94 U/L (38-126); Amylase 39 U/L (30-110); Anion Gap 7 mmol/L; Blood Urea Nitrogen 14 mg/dL (9-20); Carbon Dioxide 33 mmol/L (22-30); Chloride 102 mmol/L (98-107); Glucose 124 mg/dL (74-99); Lipase 23 U/L (23-300); Non-African American GFR(CKD) 86 (>60 ml/min/1.73 sqM); Potassium 3.2 mmol/L (3.5-5.1); Sodium 142 mmol/L (137-145); Total Bilirubin 0.7 mg/dL (0.2-1.3); Total Protein 6.4 g/dL (6.3-8.2)
--- NOTE | 2024-04-07 14:38 | CT ---
EXAMINATION TYPE: CT abdomen pelvis w con CT DLP: 1158.9 mGycm, Automated exposure control for dose reduction was used. DATE OF EXAM: 04/07/2024 1:11 PM COMPARISON: None recent. CLINICAL INDICATION:Male, 78 years old with history of abdominal distention, diarrhea; Abdominal dist ention, diarrhea TECHNIQUE: Axial CT abdomen pelvis w con;Sagittal and coronal reformats were created on a separate w orkstation. Contrast used:100 ml mL of Isovue 300 with IV Contrast, (none if empty) Oral contrast used: without Oral Contrast (none if empty) FINDINGS: LOWER CHEST: Enlarged heart. Lungs are clear. ABDOMEN LIVER: Unremarkable GALLBLADDER AND BILE DUCTS: Unremarkable. PANCREAS: Unremarkable. SPLEEN: Unremarkable. ADRENAL GLANDS: Unremarkable. KIDNEYS AND URETERS: No evidence of hydronephrosis or renal calculus. The ureters are unremarkable. PELVIS BLADDER: Unremarkable REPRODUCTIVE: Unremarkable. ABDOMEN & PELVIS STOMACH AND BOWEL: Stomach and duodenum are unremarkable. No evidence of bowel obstruction. Fluid- filled colon suggesting colitis. PERITONEUM/RETROPERITONEUM: No evidence of pneumoperitoneum or free fluid. VASCULATURE: No evidence of aortic aneurysm. MUSCULOSKELETAL: No acute osseous abnormalities LYMPH NODES: No gross evidence for lymphadenopathy. SOFT TISSUE/ABDOMINAL WALL: Unremarkable IMPRESSION: 1. Fluid-filled colon suggesting colitis.
[2024-04-07 15:04] LABS: Appearance,Urine Clear (Clear); Bilirubin,Urine Negative (Negative); Blood,Urine Negative (Negative); Color,Urine Yellow; Glucose,Urine (UA) Negative (Negative); Ketones,Urine Negative (Negative); Leukocyte Esterase,Urine Trace (Negative); Mucus,Urine Many /hpf; Nitrite,Urine Negative (Negative); Protein,Urine Trace (Negative); RBC,Urine 10 /hpf (0-5); Squamous Epithelial Cell,Urine <1 /hpf (0-4); Urobilinogen,Urine <2.0 mg/dL (<2.0); WBC,Urine 7 /hpf (0-5)
[2024-04-07 16:43] VITALS: BP 162/96; PULSE 70
== END 2024-04-07 15:58 | disposition home or self-care (01) ==
LOC: EC 10:09
DX: K52.9 Noninfective gastroenteritis and colitis, unspecified (principal); Z87.891 Personal history of nicotine dependence; Z88.6 Allergy status to analgesic agent; Z88.2 Allergy status to sulfonamides; Z88.5 Allergy status to narcotic agent
CPT/HCPCS: 36415; 80053; 82150; 83605; 83690; 83735; 85025; 82272; 81001; 87493; 87045; 87046; 74177; 99284; 96360; 96361; Q9967

== ENCOUNTER 2024-05-14 12:10 | Emergency (ER) | payer MEDICARE ==
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
[2024-05-14 12:33] VITALS: TEMP 98.4
[2024-05-14 13:41] LABS: Basophils % (A) 1 %; Eosinophils # (A) 0.2 k/uL (0-0.7); Eosinophils % (A) 3 %; HCT 43.6 % (39.0-53.0); HGB 14.5 gm/dL (13.0-17.5); Lymphocytes # (A) 1.5 k/uL (1.0-4.8); Lymphocytes % (A) 24 %; MCH 30.6 pg (25.0-35.0); MCHC 33.2 g/dL (31.0-37.0); MCV 92.1 fL (80.0-100.0); Monocytes # (A) 0.4 k/uL (0-1.0); Monocytes % (A) 6 %; Neutrophils # (A) 4.1 k/uL (1.3-7.7); Neutrophils % (A) 65 %; Platelet Count 194 k/uL (150-450); RBC 4.74 m/uL (4.30-5.90); RDW 13.4 % (11.5-15.5); WBC 6.3 k/uL (3.8-10.6)
[2024-05-14 14:06] LABS: ALT 20 U/L (4-49); AST 30 U/L (17-59); African American GFR (CKD) >90 (>60 ml/min/1.73 sqM); Alkaline Phosphatase 109 U/L (38-126); Anion Gap 7 mmol/L; Blood Urea Nitrogen 11 mg/dL (9-20); Calcium 8.8 mg/dL (8.4-10.2); Carbon Dioxide 30 mmol/L (22-30); Chloride 102 mmol/L (98-107); Glucose 148 mg/dL (74-99); Magnesium 2.2 mg/dL (1.6-2.3); Non-African American GFR(CKD) 84 (>60 ml/min/1.73 sqM); Phosphorus 2.7 mg/dL (2.5-4.5); Potassium 3.1 mmol/L (3.5-5.1); Sodium 139 mmol/L (137-145); Total Bilirubin 0.6 mg/dL (0.2-1.3); Total Protein 6.3 g/dL (6.3-8.2)
[2024-05-14] MEDS: POTASSIUM CHLORIDE ER 20 MEQ TAB.ER PO STA (15:33)
[2024-05-14 15:41] VITALS: BP 119/80; PULSE 71; RESP 18
== END 2024-05-14 15:40 | disposition home or self-care (01) ==
LOC: EC 12:10
DX: E87.6 Hypokalemia (principal); Z87.891 Personal history of nicotine dependence; Z88.5 Allergy status to narcotic agent; Z88.2 Allergy status to sulfonamides; Z88.8 Allergy status to other drugs, medicaments and biological substances
CPT/HCPCS: 36415; 80053; 83735; 84100; 85025; 93005; 99283